=== PATIENT | female | born 1960 | race Caucasian/White ===

== ENCOUNTER 2024-05-22 10:36 | Inpatient (IN) | payer MEDICARE, MEDICAID, SELFPAY ==
[2024-05-22] VITALS (52 sets, daily range): BP systolic 99–119; BP diastolic 44–100; PULSE 101–128; RESP 15–27; TEMP 36.3–37; O2SAT 78–100; BMI 34.3
--- NOTE | ~2024-05-22 | CT_ITS ---
EXAMINATION: CTA chest abdomen pelvis DATE: 05/22/2024 13:08 INDICATION: Pain. Shortness of breath. Lower abdominal pain. TECHNIQUE: Computed tomographic angiography (CTA) of the chest, abdomen, and pelvis was performed wit hout and with 100 mL Omnipaque-350 intravenous contrast. Volume-rendered 3D-reconstructions of the ao rta and large arteries were constructed by the technologist on a separate workstation. Automated expo sure control and iterative reconstruction technique were employed. The dose-length product was 1061.9 5 mGy-cm. COMPARISON: None FINDINGS: Chest: 1.5 cm nodule with spiculated and lobular margins in the lingula. Linear bands of discoid atelectasis /scarring in the basilar left lower lobe and adjacent lingular. No pneumonia, pulmonary edema or pleu ral effusion. Heart size is normal. No pericardial effusion. Thoracic aorta is normal in caliber with no dissection. No pathologically enlarged thoracic lymphadenopathy. Small sliding-type hiatal hernia . Severe lower cervical spondylosis. Mild upper to moderate lower thoracic spondylosis. Abdomen and pelvis: There is mild dilation the common bile duct to 1.2 cm which is likely related to prior cholecystectom y. Liver is normal with no intrahepatic biliary ductal dilation. Splenic calcification consistent wit h old granulomatous disease. Pancreas, left kidney and bilateral adrenal glands are normal. 1.[address] at the upper pole the right kidney. There is inflammatory stranding surrounding the splenic flexur e the colon where there is wall thickening with nodular soft tissue extension to the surrounding abigail colonic fat. There also several small adjacent mesenteric lymph nodes and mildly prominent lymph node s about the splenic hilum. Findings are concerning for primary colon cancer. Differential would inclu de diverticulitis or focal colitis. There is moderate diverticulosis along the descending and sigmoid colon. Small bowel and appendix are normal. Bladder is normal. The uterus is not identified and has likely been surgically resected. Minimal atherosclerotic plaque along the normal caliber abdominal ao rta. No free intraperitoneal gas or fluid. No pathologically enlarged abdominal or pelvic lymphadenop athy. Severe lumbar spondylosis. IMPRESSION: 1. 1.5 cm spiculated nodule at the lingula concerning for primary bronchogenic carcinoma. If there is no prior outside imaging to confirm long-term stability would recommend further evaluation with CT-g uided biopsy. 2. Stranding and wall thickening at the splenic flexure with nodular extension of soft tissue into th e pericolonic fat and mild mesenteric lymphadenopathy which is highly concerning for primary colon ca ncer. Differential would include diverticulitis or focal colitis. Recommend colonoscopy for further e valuation. Reviewed, dictated and finalized at location B. S EXECUTIVE IMPRESSION: 1. 1.5 cm spiculated nodule at the lingula concerning for primary bronchogenic carcinoma. If there is no prior outside imaging to confirm long-term stability would recommend further evaluation with CT-guided biopsy. 2. Stranding and wall thickening at the splenic flexure with nodular extension of soft tissue into the pericolonic fat and mild mesenteric lymphadenopathy whi ch is highly concerning for primary colon cancer. Differential would include di verticulitis or focal colitis. Recommend colonoscopy for further evaluation.
--- NOTE | ~2024-05-22 | XR_ITS ---
EXAMINATION: XR chest 1V portable DATE: 05/26/2024 18:47 INDICATION: Left lung nodule status post percutaneous biopsy. TECHNIQUE: A single frontal view of the chest was obtained. COMPARISON: Chest single view at 3:35 PM FINDINGS: There is a nodule in left midlung zone. There is mild atelectasis at the lung bases. No ple ural effusion or pneumothorax. The heart size is normal. IMPRESSION: 1. Nodule in left midlung zone suspicious for primary bronchogenic carcinoma and postbiopsy hemorrhag e. 2. Mild atelectasis at left lung base. Reviewed, dictated and finalized at location A. OL SUPERVISOR IMPRESSION: 1. Nodule in left midlung zone suspicious for primary bronchogenic carcinoma an d postbiopsy hemorrhage. 2. Mild atelectasis at left lung base.
--- NOTE | ~2024-05-22 | CT_ITS ---
EXAMINATION: CT biopsy lung w/imaging DATE: 05/26/2024 15:35 INDICATION: Suspicious left upper lobe lung mass TECHNIQUE: The procedure including the risks, benefits, and alternatives was discussed with the patie nt and informed consent was obtained. The patient was brought to the CT scanner and placed in the supine position on the CT table. A timeout was then performed as per protocol. Limited scan of the chest demonstrated significant interstitial thickening and centrilobular emphysem a. . The previously identified 13 mm nodule was redemonstrated anterior lateral margin of the left upper l obe. Marking of the overlying skin was made utilizing the shortest distance for adequate sampling. The left anterior chest wall was then prepped and draped in the standard sterile fashion. 1% lidocaine without epinephrine was utilized to scan and soft tissue analgesia. A 17-gauge introducer was then advanced through the anterior chest wall and directly into the abnorma lity within the left chest. Utilizing an 18-gauge biopsy device multiple specimens were obtained and placed immediately into form olayinka for pathologic evaluation. Post sampling imaging was then performed once all devices were removed which demonstrated trace peril esional hemorrhage without left-sided pneumothorax. Steri-Strips and a sterile dressing were applied The patient was then transported to the recovery area in stable condition. FINDINGS: Dedicated CT images during the biopsy demonstrate the introducer to be through and through the 13 mm lesion. As the biopsy device was advanced, the introducer was withdrawn in order to obtain adequate tissue sa mpling. IMPRESSION: 1. Technically successful CT-guided core biopsy of a 13 mm suspicious lung lesion within the left upp er lobe. No immediate complications were encountered. Pathology is pending. Reviewed, dictated and finalized at location A. MACEUTICAL SALES IMPRESSION: 1. Technically successful CT-guided core biopsy of a 13 mm suspicious lung lesi on within the left upper lobe. No immediate complications were encountered. Pathology is pending.
--- NOTE | ~2024-05-22 | XR_ITS ---
EXAMINATION: XR chest 1V DATE: 05/26/2024 15:38 INDICATION: Left lung nodule status post percutaneous biopsy. TECHNIQUE: A single frontal view of the chest was obtained. COMPARISON: Chest CT 05/12/2024 FINDINGS: There is a mass in left midlung zone. There is mild atelectasis at left lung base. No pleur al effusion or pneumothorax. The heart size is normal. Calcified mediastinal lymph nodes are consiste nt with old granulomatous disease. IMPRESSION: 1. Mass in left midlung zone, consistent with nodule suspicious for malignancy and postbiopsy hemorrh age. Reviewed, dictated and finalized at location A. ISSARY STEWARD IMPRESSION: 1. Mass in left midlung zone, consistent with nodule suspicious for malignancy and postbiopsy hemorrhage.
--- NOTE | 2024-05-22 11:28 | ECG_ITS ---
Test Date: 2024-05-22 11:47:47 Measurements Intervals [place] Rate: 116 P: 31 NV: 145 QRS: 4 QRSD: 85 T: 14 QT: 339 QTc: 473 Interpretive Statements SINUS TACHYCARDIA ABNORMAL RHYTHM ECG No previous ECG available for comparison Electronically Signed On 05-22-2024 13:40:19 [employer]OTTON INSPECTOR by Benjamin Heredia M.D.
--- NOTE | 2024-05-22 11:30 | ED.ABDPAIN ---
HPI - Abdominal Pain General Chief Complaint: Abdominal Pain <Shana Reinoso [employer]ILY [employer] PARALEGAL - Last Filed: 05/22/24 14:54> Stated Complaint: left upper abd pain 12/03, <Shana Reinoso [employer]GAL - Last Filed: 05/22/24 14:54> Time Seen by Provider: 05/22/24 11:20 <Shana Reinoso [employer]GAL - Last Filed: 05/22/24 14:54> Focused HPI: Patient is a 63-year-old female who presents to the ER with complaints of upper abdominal pain for the past 2 weeks. She also endorses chest pain. Patient reports she has a history of pancreatitis and has had stents placed. She has also had cholecystectomy and hysterectomy. Patient reports she has constant right upper quadrant pain, and intermittent midsternal chest pain. She also endorses feeling ?depressed for the past 3 years. Patient has been passively suicidal ideation but has not had an active plan in 2 years. She is tearful upon time of exam. Patient denies any recent alcohol or illicit drug use. She endorses a history of COPD and pancreatitis. GENERAL: Well-appearing, obese, and in mild distress (tearful in triage). HEAD: Normocephalic, atraumatic. CHEST: Clear to auscultation. ?No respiratory distress. HEART: Tachycardia, regular rhythm NEURO: ?Alert and oriented x3. ABDOMEN: + guarding, tenderness with palpation RUQ Patient screened in triage and initial orders placed.? ?Additional care and disposition to be based upon?diagnostic testing and treatment. <Shana Reinoso, [employer]ILY [employer]GAL - Last Filed: 05/22/24 14:54> Focused HPI: Patient is a 63-year-old female who presents to the ER with complaints of upper abdominal pain for the past 2 weeks. She also endorses chest pain. Patient reports she has a history of pancreatitis and has had stents placed. She has also had cholecystectomy and hysterectomy. Patient reports she has constant upper quadrant pain, and intermittent midsternal chest pain. She also endorses feeling ?depressed for the past 3 years. Patient has been passively suicidal ideation but has not had an active plan in 2 years. She is tearful upon time of exam. Patient denies any recent alcohol or illicit drug use. She endorses a history of COPD and pancreatitis. GENERAL: Well-appearing, obese, and in mild distress (tearful in triage). HEAD: Normocephalic, atraumatic. CHEST: Clear to auscultation. ?No respiratory distress. HEART: Tachycardia, regular rhythm NEURO: ?Alert and oriented x3. ABDOMEN: + guarding, tenderness with palpation RUQ Patient screened in triage and initial orders placed.? ?Additional care and disposition to be based upon?diagnostic testing and treatment. <Chester Pelaez MD - Last Filed: 05/22/24 18:51> Related Data Allergies/Adverse Reactions: Allergies Allergy/AdvReac Type Severity Reaction Status Date / Time morphine AdvReac the Verified 05/22/24 14:11 shakes <Shana eRinoso APRN - Last Filed: 05/22/24 14:54> Exam Narrative: APPEARANCE: No apparent distress. Head: atraumatic. EYES: EOMI, NOSE: Atraumatic NECK: Trachea midline RESPIRATORY: No increased rate of breathing CTAB CARDIOVASCULAR: RRR, no peripheral edema ABDOMINAL: Epigastric pain no guarding rebound MUSCULOSKELETAl: No obvious deformities NEURO: Alert. Moving 4/4 extremities SKIN:: Warm, dry. Normal color PSYCHIATRIC: Normal affect <Chester Pelaez MD - Last Filed: 05/22/24 18:51> Course Vital Signs Vital signs: Vital Signs Temperature 98.6 F 05/22/24 11:05 Pulse Rate 115 H 05/22/24 11:05 Respiratory Rate 16 05/22/24 11:05 Blood Pressure 114/64 05/22/24 11:05 Pulse Oximetry 97 05/22/24 11:05 Oxygen Delivery Room Air 05/22/24 11:05 Temperature 98.6 F 05/22/24 11:05 Pulse Rate 126 H 05/22/24 17:01 Respiratory Rate 18 05/22/24 17:01 Blood Pressure 117/62 05/22/24 17:01 Pulse Oximetry 95 05/22/24 17:01 Oxygen Delivery Room Air 05/22/24 11:05 <Shana Reinoso, [employer]ILY [employer]GAL - Last Filed: 05/22/24 14:54> Vital Signs Temperature 98.6 F 05/22/24 11:05 Pulse Rate 115 H 05/22/24 11:05 Respiratory Rate 16 05/22/24 11:05 Blood Pressure 114/64 05/22/24 11:05 Pulse Oximetry 97 05/22/24 11:05 Oxygen Delivery Room Air 05/22/24 11:05 Temperature 98.6 F 05/22/24 11:05 Pulse Rate 126 H 05/22/24 17:01 Respiratory Rate 18 05/22/24 17:01 Blood Pressure 117/62 05/22/24 17:01 Pulse Oximetry 95 05/22/24 17:01 Oxygen Delivery Room Air 05/22/24 11:05 <Chester Pelaez MD - Last Filed: 05/22/24 18:51> MDM - Abdominal Pain MDM Narrative Medical decision making narrative: -Course: This is a 63-year-old female presenting with abdominal pain. On arrival patient is tachycardic. CT chest abdomen pelvis showed suspected lung cancer as well as inflammation at the splenic flexure that could be colon cancer versus colitis versus diverticulitis. Patient's white count is elevated, she is persistently tachycardic despite fluid resuscitation. Patient meets sepsis criteria. Started on broad spectrum abx and given 30/cc blus. She will be started on antibiotics for colitis and admitted the hospital for further management. Patient is a poor historian. She says she was discharged from [facility] on April 13 and is unclear exactly why she was there outside of pancreatitis. Records have been requested from [facility]. -DDX includes but is not limited to: Lung cancer pneumonia sepsis UTI dehydration colitis diverticulitis, pancreatitis, gallbladder disease -Independent interpretation of studies: White count 13 hemoglobin 9.5. Metabolic panel unremarkable Troponin undetectable, BNP normal Urine not indicative infection CTA reviewed. Independent EKG interpretation: Rhythm [sinus], Rate [116], [place] -[normal], [place] -[normal], QRS [narrow], QTC [normal], T waves -[negative for concerning inversions], ST Segments - [Negative for concerning elevations] Final interpretations: Sinus tachycardia -Discussion of Management/Consultants: [place] -Interventions: 30 cc/kilogram bolus, pip-tazo, vancomycin, Dilaudid -Shared decision making / Disposition:admitted. <Chester Pelaez MD - Last Filed: 05/22/24 18:51> Lab Data Result diagrams: 05/22/24 11:59 05/22/24 11:59 <Shana Reinoso, FAMILY [employer]GAL - Last Filed: 05/22/24 14:54> Labs: Lab Results 05/22/24 05/22/24 05/22/24 Range/Units 11:59 12:12 14:08 WBC 13.0 H (4.5-10.0) K/mm3 RBC 4.15 L (4.2-5.4) M/mm3 Hgb 9.5 L (12.0-15.0) g/dL Hct 32.1 L (37.0-47.0) % MCV 77.3 L (80-100) fl MCH 22.9 L (26-34) pg MCHC 29.6 L (32-36) g/dl RDW 16.0 H (11.5-14.5) % Plt Count 432 H (150-375) k/mm3 MPV 10.3 (7.4-10.4) fl Immature Gran % (Auto) 0.5 (0-0.5) % Neut % (Auto) 62.5 (45.5-73.1) % Lymph % (Auto) 28.7 (18.3-44.2) % [place] % (Auto) 6.9 (2.6-8.5) % Eos % (Auto) 1.2 (0-4.4) % Baso % (Auto) 0.2 (0.2-1.2) % Lymph # (Auto) 3.72 H (0.9-3.2) K/mm3 [place] # (Auto) 0.9 H (0.1-0.6) K/mm3 Eos # (Auto) 0.2 (0-0.3) K/mm3 Baso # (Auto) 0.0 (0.0-0.1) K/mm3 Abs Immat Gran (auto) 0.06 H (0.00-0.031) K/mm3 Absolute Neuts (auto) 8.1 H (1.3-6.7) K/mm3 Absolute Nucleated RBC 0.000 (0.0-0.012) K/mm3 Nucleated RBC % 0.0 (0.0-0.2) % Platelet Estimate Increased (Adequate) Polychromasia 1+ Hypochromasia 1+ Anisocytosis 1+ Schistocytes None seen PT 17.5 H (11.1-14.7) Seconds INR 1.4 APTT 45.0 H (22.3-36.8) Seconds Sodium 135 L (137-145) mmol/L Potassium 3.9 (3.4-5.0) mmol/L Chloride 101 (98-107) mmol/L Carbon Dioxide 22 (22-30) mmol/L Anion Gap 12 (4-12) mmol/L BUN 12 (7-17) mg/dL Creatinine 0.66 L (0.7-1.0) mg/dL Estim Creat Clear Calc 66 ml/min Estimated GFR > 60 (59 - ) Glucose 104 (65-110) mg/dL POC Capillary Glucose 92 (65-105) mg/dl Calcium 9.5 (8.4-10.2) mg/dL Total Bilirubin 0.4 (0.2-1.3) mg/dL AST 21 (14-36) U/L ALT 14 (6-35) U/L Alkaline Phosphatase 152 H (38-126) U/L Troponin I < 0.012 (0.000-0.034) ng/mL NT-Pro-B Natriuret Pep 79 (19.9-100) pg/mL Total Protein 8.0 (6.3-8.2) g/dL Albumin 4.2 (3.5-5.1) g/dL Lipase 37 (23-300) U/L TSH (Reflex) 1.110 (0.465-4.68) uIU/mL Urine Color Yellow (Yellow) Urine Appearance Clear (Clear) Urine pH 6.5 (5.0-9.0) Ur Specific [place] 1.011 (1.001-1.035) Urine Protein Negative (Negative) mg/dL Urine Glucose (UA) Negative (Negative) mg/dL Urine Ketones Negative (Negative) mg/dL Ur Blood (Man) Negative (Negative) Urine Nitrate Negative (Negative) Urine Bilirubin Negative (Negative) Urine Urobilinogen 0.2 (<2.0) mg/dL Leukocyte Esterase Rfl Negative (Negative) [place]/UL <Shana Reinoso, FAMILY [employer] PARALEGAL - Last Filed: 05/22/24 14:54> Lab Results 05/22/24 05/22/24 05/22/24 Range/Units 11:59 12:12 14:08 WBC 13.0 H (4.5-10.0) K/mm3 RBC 4.15 L (4.2-5.4) M/mm3 Hgb 9.5 L (12.0-15.0) g/dL Hct 32.1 L (37.0-47.0) % MCV 77.3 L (80-100) fl MCH 22.9 L (26-34) pg MCHC 29.6 L (32-36) g/dl RDW 16.0 H (11.5-14.5) % Plt Count 432 H (150-375) k/mm3 MPV 10.3 (7.4-10.4) fl Immature Gran % (Auto) 0.5 (0-0.5) % Neut % (Auto) 62.5 (45.5-73.1) % Lymph % (Auto) 28.7 (18.3-44.2) % [place] % (Auto) 6.9 (2.6-8.5) % Eos % (Auto) 1.2 (0-4.4) % Baso % (Auto) 0.2 (0.2-1.2) % Lymph # (Auto) 3.72 H (0.9-3.2) K/mm3 [place] # (Auto) 0.9 H (0.1-0.6) K/mm3 Eos # (Auto) 0.2 (0-0.3) K/mm3 Baso # (Auto) 0.0 (0.0-0.1) K/mm3 Abs Immat Gran (auto) 0.06 H (0.00-0.031) K/mm3 Absolute Neuts (auto) 8.1 H (1.3-6.7) K/mm3 Absolute Nucleated RBC 0.000 (0.0-0.012) K/mm3 Nucleated RBC % 0.0 (0.0-0.2) % Platelet Estimate Increased (Adequate) Polychromasia 1+ Hypochromasia 1+ Anisocytosis 1+ Schistocytes None seen PT 17.5 H (11.1-14.7) Seconds INR 1.4 APTT 45.0 H (22.3-36.8) Seconds Sodium 135 L (137-145) mmol/L Potassium 3.9 (3.4-5.0) mmol/L Chloride 101 (98-107) mmol/L Carbon Dioxide 22 (22-30) mmol/L Anion Gap 12 (4-12) mmol/L BUN 12 (7-17) mg/dL Creatinine 0.66 L (0.7-1.0) mg/dL Estim Creat Clear Calc 66 ml/min Estimated GFR > 60 (59 - ) Glucose 104 (65-110) mg/dL POC Capillary Glucose 92 (65-105) mg/dl Calcium 9.5 (8.4-10.2) mg/dL Total Bilirubin 0.4 (0.2-1.3) mg/dL AST 21 (14-36) U/L ALT 14 (6-35) U/L Alkaline Phosphatase 152 H (38-126) U/L Troponin I < 0.012 (0.000-0.034) ng/mL NT-Pro-B Natriuret Pep 79 (19.9-100) pg/mL Total Protein 8.0 (6.3-8.2) g/dL Albumin 4.2 (3.5-5.1) g/dL Lipase 37 (23-300) U/L TSH (Reflex) 1.110 (0.465-4.68) uIU/mL Urine Color Yellow (Yellow) Urine Appearance Clear (Clear) Urine pH 6.5 (5.0-9.0) Ur Specific [place] 1.011 (1.001-1.035) Urine Protein Negative (Negative) mg/dL Urine Glucose (UA) Negative (Negative) mg/dL Urine Ketones Negative (Negative) mg/dL Ur Blood (Man) Negative (Negative) Urine Nitrate Negative (Negative) Urine Bilirubin Negative (Negative) Urine Urobilinogen 0.2 (<2.0) mg/dL Leukocyte Esterase Rfl Negative (Negative) [place]/UL <Chester Pelaez MD - Last Filed: 05/22/24 18:51> Imaging Data Radiologist's impression: ITS Impressions Chest/Abdomen/Pelvis CTA 05/22/24 13:13 IMPRESSION: 1. 1.5 cm spiculated nodule at the lingula concerning for primary bronchogenic carcinoma. If there is no prior outside imaging to confirm long-term stability would recommend further evaluation with CT-guided biopsy. 2. Stranding and wall thickening at the splenic flexure with nodular extension of soft tissue into the pericolonic fat and mild mesenteric lymphadenopathy which is highly concerning for primary colon cancer. Differential would include diverticulitis or focal colitis. Recommend colonoscopy for further evaluation. <Shana Reinoso APRN - Last Filed: 05/22/24 14:54> ITS Impressions Chest/Abdomen/Pelvis CTA 05/22/24 13:13 IMPRESSION: 1. 1.5 cm spiculated nodule at the lingula concerning for primary bronchogenic carcinoma. If there is no prior outside imaging to confirm long-term stability would recommend further evaluation with CT-guided biopsy. 2. Stranding and wall thickening at the splenic flexure with nodular extension of soft tissue into the pericolonic fat and mild mesenteric lymphadenopathy which is highly concerning for primary colon cancer. Differential would include diverticulitis or focal colitis. Recommend colonoscopy for further evaluation. <Chester Pelaez MD - Last Filed: 05/22/24 18:51> Discharge Plan Discharge Instructions: Antibiotic Form <Shana Reinoso APRN - Last Filed: 05/22/24 14:54> Patient Language: [place] Zealander <Shana Reinoso APRN - Last Filed: 05/22/24 14:54>
[2024-05-22 12:09] LABS: Basophils Percent Auto 0.2 % (0.2-1.2); Eosinophils Absolute Auto 0.2 K/mm3 (0-0.3); Eosinophils Percent Auto 1.2 % (0-4.4); Hematocrit 32.1 % (37.0-47.0); Hemoglobin 9.5 g/dL (12.0-15.0); Immature Granulocyte Absolute 0.06 K/mm3 (0.00-0.031); Immature Granulocyte Percent A 0.5 % (0-0.5); Lymphocytes Absolute Auto 3.72 K/mm3 (0.9-3.2); Lymphocytes Percent Auto 28.7 % (18.3-44.2); Mean Corpuscular HGB Conc 29.6 g/dl (32-36); Mean Corpuscular Hemoglobin 22.9 pg (26-34); Mean Corpuscular Volume 77.3 fl (80-100); Mean Platelet Volume 10.3 fl (7.4-10.4); Monocytes Absolute Auto 0.9 K/mm3 (0.1-0.6); Monocytes Percent Auto 6.9 % (2.6-8.5); Neutrophils Absolute Auto 8.1 K/mm3 (1.3-6.7); Neutrophils Percent Auto 62.5 % (45.5-73.1); Platelet Count Result 432 k/mm3 (150-375); Red Blood Count 4.15 M/mm3 (4.2-5.4)
[2024-05-22 12:23] LABS: INR 1.4; Prothrombin Time 17.5 Seconds (11.1-14.7)
[2024-05-22 12:26] LABS: Add Urine Microscopic? NO; Appearance Urine Clear (Clear); Bilirubin Urine Negative (Negative); Blood Urine Negative (Negative); Color Urine Yellow (Yellow); Glucose Urine UA Negative (Negative); Ketones Urine Negative (Negative); Leukocyte Esterase Ur Negative LEU/UL (Negative); Nitrate Urine Negative (Negative); Protein Urine Negative (Negative); Specific Grav Ur 1.011 (1.001-1.035); Urobilinogen Urine 0.2 mg/dL (<2.0); pH Urine 6.5 (5.0-9.0)
[2024-05-22 12:33] LABS: Anisocytosis 1+; Hypochromasia 1+; Platelet Estimate Increased (Adequate); Polychromasia 1+; Schistocytes None Seen
[2024-05-22 12:48] LABS: Alanine Aminotransferase 14 U/L (6-35); Albumin Level 4.2 g/dL (3.5-5.1); Alkaline Phosphatase 152 U/L (38-126); Anion Gap 12 mmol/L (4-12); Aspartate Amino Transferase 21 U/L (14-36); Bilirubin,Total 0.4 mg/dL (0.2-1.3); Blood Urea Nitrogen 12 mg/dL (7-17); Calcium 9.5 mg/dL (8.4-10.2); Carbon Dioxide 22 mmol/L (22-30); Chloride 101 mmol/L (98-107); Estimated CRCL calculation 66 ml/min; Estimated Glomerular Filt Rate > 60; Glucose 104 mg/dL (65-110); Lipase 37 U/L (23-300); Potassium 3.9 mmol/L (3.4-5.0); Sodium 135 mmol/L (137-145); Troponin I < 0.012 ng/mL (0.000-0.034)
[2024-05-22 12:58] LABS: NT Pro B Type Natriuretic Pept 79 pg/mL (19.9-100)
[2024-05-22 14:12] LABS: Glucose Point of Care 92 mg/dl (65-105)
[2024-05-22] MEDS: SODIUM CHLORIDE 0.9% IV 1,000 ML 999 ML IV CONT (16:59)
[2024-05-22] MEDS: ONDANSETRON INJ 4 MG/2 ML VIAL IV PUSH ×2 (17:00→23:51)
[2024-05-22] MEDS: HYDROmorphone HCL INJ (*CRX) 1 MG/ML SYR IV PUSH ×2 (17:01→22:26)
[2024-05-22 18:00] LABS: Lactic Acid Reflex 1.8 mmol/L (0.7-2.0)
[2024-05-22] MEDS: PIPERACILLN/TAZ 3.375GM/NS50ML 3.375 GM/50 ML BAG IVPB ×2 (18:12→23:56)
[2024-05-22] MEDS: SODIUM CHLORIDE 0.9% 999 ML IV CONT (18:12)
[2024-05-22 18:17] LABS: Lipase 37 U/L (23-300)
[2024-05-22] MEDS: VANCOMYCIN 1,750 MG/NS 500 ML 1,750 MG/500 ML BAG 250 MG IVPB (18:44)
--- NOTE | 2024-05-22 19:22 | ED_ITS ---
HPI - General Adult General Chief complaint: Abdominal Pain Stated complaint: left upper abd pain 12/03, Time Seen by Provider: 05/22/24 11:20 History of Present Illness HPI narrative: This is a 63-year-old female presenting ED with chief epigastric pain. Pain is been going on for several weeks please come worse over the last several days. Patient was admitted at [facility] and had a prolonged stay due to complications from pancreatitis. Patient is poor historian and does not know many of the specifics of her stay. Records have been requested. This time the patient is denying fevers, chills chest pain difficulty breathing or urinary symptoms. No nausea vomiting or diarrhea. Patient has an oncology appointment on but she is not sure for what. Related Data Allergies Allergy/AdvReac Type Severity Reaction Status Date / Time morphine AdvReac the Verified 05/22/24 14:11 shakes Exam 2 Narrative: APPEARANCE: No apparent distress. Head: atraumatic. EYES: EOMI, NOSE: Atraumatic NECK: Trachea midline RESPIRATORY: No increased rate of breathing clear to auscultation CARDIOVASCULAR: Tachycardic ABDOMINAL: Tenderness palpation over the epigastric area guarding or rebound MUSCULOSKELETAl: No obvious deformities NEURO: Alert. Moving 4/4 extremities SKIN:: Warm, dry. Normal color PSYCHIATRIC: Normal affect Course Vital Signs Vital signs: Vital Signs Temperature 98.6 F 05/22/24 11:05 Pulse Rate 115 H 05/22/24 11:05 Respiratory Rate 16 05/22/24 11:05 Blood Pressure 114/64 05/22/24 11:05 Pulse Oximetry 97 05/22/24 11:05 Oxygen Delivery Room Air 05/22/24 11:05 Temperature 98.6 F 05/22/24 11:05 Pulse Rate 114 H 05/22/24 19:16 Respiratory Rate 17 05/22/24 19:16 Blood Pressure 104/66 05/22/24 19:16 Pulse Oximetry 100 05/22/24 19:16 Oxygen Delivery Nasal Cannula 05/22/24 18:32 Oxygen Flow Rate 2 05/22/24 18:32 Medical Decision Making [facility] Narrative Medical decision making narrative: -Course: 63-year-old female presenting with epigastric pain. CT chest abdomen pelvis showed possible lung cancer in the lingula. It also shows inflammation at the splenic flexure with a differential of focal colitis versus neoplasm versus diverticulitis. Clinically the patient is persistently tachycardic despite pain meds and fluid resuscitation. She has a white count of 13 and meet sepsis criteria. Started on broad-spectrum antibiotics and given a 30 cc/kilogram bolus. She will be admitted to the hospital for further management -DDX includes but is not limited to: Sepsis UTI dehydration colitis diverticulitis neoplasm -Independent interpretation of studies: Labs imaging reviewed -Discussion of Management/Consultants: Dr. Green -Shared decision making / Disposition:admitted. Vital Signs Vital Signs: Vital Signs Temperature 98.6 F 05/22/24 11:05 Pulse Rate 115 H 05/22/24 11:05 Respiratory Rate 16 05/22/24 11:05 Blood Pressure 114/64 05/22/24 11:05 Pulse Oximetry 97 05/22/24 11:05 Oxygen Delivery Room Air 05/22/24 11:05 Temperature 98.6 F 05/22/24 11:05 Pulse Rate 114 H 05/22/24 19:16 Respiratory Rate 17 05/22/24 19:16 Blood Pressure 104/66 05/22/24 19:16 Pulse Oximetry 100 05/22/24 19:16 Oxygen Delivery Nasal Cannula 05/22/24 18:32 Oxygen Flow Rate 2 05/22/24 18:32 Lab Data 05/22/24 11:59 05/22/24 11:59 Labs: Lab Results 05/22/24 05/22/24 05/22/24 Range/Units 11:59 12:12 14:08 WBC 13.0 H (4.5-10.0) K/mm3 RBC 4.15 L (4.2-5.4) M/mm3 Hgb 9.5 L (12.0-15.0) g/dL Hct 32.1 L (37.0-47.0) % MCV 77.3 L (80-100) fl MCH 22.9 L (26-34) pg MCHC 29.6 L (32-36) g/dl RDW 16.0 H (11.5-14.5) % Plt Count 432 H (150-375) k/mm3 MPV 10.3 (7.4-10.4) fl Immature Gran % (Auto) 0.5 (0-0.5) % Neut % (Auto) 62.5 (45.5-73.1) % Lymph % (Auto) 28.7 (18.3-44.2) % [place] % (Auto) 6.9 (2.6-8.5) % Eos % (Auto) 1.2 (0-4.4) % Baso % (Auto) 0.2 (0.2-1.2) % Lymph # (Auto) 3.72 H (0.9-3.2) K/mm3 [place] # (Auto) 0.9 H (0.1-0.6) K/mm3 Eos # (Auto) 0.2 (0-0.3) K/mm3 Baso # (Auto) 0.0 (0.0-0.1) K/mm3 Abs Immat Gran (auto) 0.06 H (0.00-0.031) K/mm3 Absolute Neuts (auto) 8.1 H (1.3-6.7) K/mm3 Absolute Nucleated RBC 0.000 (0.0-0.012) K/mm3 Nucleated RBC % 0.0 (0.0-0.2) % Platelet Estimate Increased (Adequate) Polychromasia 1+ Hypochromasia 1+ Anisocytosis 1+ Schistocytes None seen PT 17.5 H (11.1-14.7) Seconds INR 1.4 APTT 45.0 H (22.3-36.8) Seconds Sodium 135 L (137-145) mmol/L Potassium 3.9 (3.4-5.0) mmol/L Chloride 101 (98-107) mmol/L Carbon Dioxide 22 (22-30) mmol/L Anion Gap 12 (4-12) mmol/L BUN 12 (7-17) mg/dL Creatinine 0.66 L (0.7-1.0) mg/dL Estim Creat Clear Calc 66 ml/min Estimated GFR > 60 (59 - ) Glucose 104 (65-110) mg/dL POC Capillary Glucose 92 (65-105) mg/dl Lactic Acid (0.7-2.0) mmol/L Calcium 9.5 (8.4-10.2) mg/dL Total Bilirubin 0.4 (0.2-1.3) mg/dL AST 21 (14-36) U/L ALT 14 (6-35) U/L Alkaline Phosphatase 152 H (38-126) U/L Troponin I < 0.012 (0.000-0.034) ng/mL NT-Pro-B Natriuret Pep 79 (19.9-100) pg/mL Total Protein 8.0 (6.3-8.2) g/dL Albumin 4.2 (3.5-5.1) g/dL Lipase 37 (23-300) U/L TSH (Reflex) 1.110 (0.465-4.68) uIU/mL Urine Color Yellow (Yellow) Urine Appearance Clear (Clear) Urine pH 6.5 (5.0-9.0) Ur Specific [place] 1.011 (1.001-1.035) Urine Protein Negative (Negative) mg/dL Urine Glucose (UA) Negative (Negative) mg/dL Urine Ketones Negative (Negative) mg/dL Ur Blood (Man) Negative (Negative) Urine Nitrate Negative (Negative) Urine Bilirubin Negative (Negative) Urine Urobilinogen 0.2 (<2.0) mg/dL Leukocyte Esterase Rfl Negative (Negative) EUGENIA/UL 05/22/24 05/22/24 Range/Units 17:45 18:02 WBC (4.5-10.0) K/mm3 RBC (4.2-5.4) M/mm3 Hgb (12.0-15.0) g/dL Hct (37.0-47.0) % MCV (80-100) fl MCH (26-34) pg MCHC (32-36) g/dl RDW (11.5-14.5) % Plt Count (150-375) k/mm3 MPV (7.4-10.4) fl Immature Gran % (Auto) (0-0.5) % Neut % (Auto) (45.5-73.1) % Lymph % (Auto) (18.3-44.2) % [place] % (Auto) (2.6-8.5) % Eos % (Auto) (0-4.4) % Baso % (Auto) (0.2-1.2) % Lymph # (Auto) (0.9-3.2) K/mm3 [place] # (Auto) (0.1-0.6) K/mm3 Eos # (Auto) (0-0.3) K/mm3 Baso # (Auto) (0.0-0.1) K/mm3 Abs Immat Gran (auto) (0.00-0.031) K/mm3 Absolute Neuts (auto) (1.3-6.7) K/mm3 Absolute Nucleated RBC (0.0-0.012) K/mm3 Nucleated RBC % (0.0-0.2) % Platelet Estimate (Adequate) Polychromasia Hypochromasia Anisocytosis Schistocytes PT (11.1-14.7) Seconds INR APTT (22.3-36.8) Seconds Sodium (137-145) mmol/L Potassium (3.4-5.0) mmol/L Chloride (98-107) mmol/L Carbon Dioxide (22-30) mmol/L Anion Gap (4-12) mmol/L BUN (7-17) mg/dL Creatinine (0.7-1.0) mg/dL Estim Creat Clear Calc ml/min Estimated GFR (59 - ) Glucose (65-110) mg/dL POC Capillary Glucose (65-105) mg/dl Lactic Acid 1.8 (0.7-2.0) mmol/L Calcium (8.4-10.2) mg/dL Total Bilirubin (0.2-1.3) mg/dL AST (14-36) U/L ALT (6-35) U/L Alkaline Phosphatase (38-126) U/L Troponin I (0.000-0.034) ng/mL NT-Pro-B Natriuret Pep (19.9-100) pg/mL Total Protein (6.3-8.2) g/dL Albumin (3.5-5.1) g/dL Lipase 37 (23-300) U/L TSH (Reflex) (0.465-4.68) uIU/mL Urine Color (Yellow) Urine Appearance (Clear) Urine pH (5.0-9.0) Ur Specific [place] (1.001-1.035) Urine Protein (Negative) mg/dL Urine Glucose (UA) (Negative) mg/dL Urine Ketones (Negative) mg/dL Ur Blood (Man) (Negative) Urine Nitrate (Negative) Urine Bilirubin (Negative) Urine Urobilinogen (<2.0) mg/dL Leukocyte Esterase Rfl (Negative) EUGENIA/UL Critical Care Time Critical Care Time Critical Care Time: Yes Total Critical Care Time: 35 Discharge Plan Discharge Clinical Impression: Sepsis, Colonic mass, Cancer, Colitis Patient Disposition: Still a Patient Condition: Stable Patient Language: Bhutanese
--- NOTE | 2024-05-22 20:45 | P.HP_ITS ---
H&P: HPI History of Present Illness Date/Time: 05/22/24 20:45 Chief Complaint: Abdominal pain Narrative: This is a 63-year-old female with past medical history significant for chronic pain, neuropathy, chronic anticoagulation. Patient presents to the emergency room with abdominal pain for 2 weeks, denies hematemesis, denies melena, denies hematochezia, no coffee-ground emesis, no bright red blood per rectum, no weight loss patient states that she has been eating only cereal. Preliminary workup in emergency room was significant for CT of abdomen and pelvis rule out for acute pulmonary embolism patient was found to have a spiculated mass of the lung as well as likely colonic mass. Patient has been admitted for further evaluation management and treatment. EXAMINATION: CTA chest abdomen pelvis DATE: 05/22/2024 13:08 INDICATION: Pain. Shortness of breath. Lower abdominal pain. TECHNIQUE: Computed tomographic angiography (CTA) of the chest, abdomen, and pelvis was performed without and with 100 mL Omnipaque-350 intravenous contrast. Volume-rendered 3D-reconstructions of the aorta and large arteries were constructed by the technologist on a separate workstation. Automated exposure control and iterative reconstruction technique were employed. The dose-length product was 1061.95 mGy-cm. COMPARISON: None FINDINGS: Chest: 1.5 cm nodule with spiculated and lobular margins in the lingula. Linear bands of discoid atelectasis/scarring in the basilar left lower lobe and adjacent lingular. No pneumonia, pulmonary edema or pleural effusion. Heart size is normal. No pericardial effusion. Thoracic aorta is normal in caliber with no dissection. No pathologically enlarged thoracic lymphadenopathy. Small sliding- type hiatal hernia. Severe lower cervical spondylosis. Mild upper to moderate lower thoracic spondylosis. Abdomen and pelvis: There is mild dilation the common bile duct to 1.2 cm which is likely related to prior cholecystectomy. Liver is normal with no intrahepatic biliary ductal d ilation. Splenic calcification consistent with old granulomatous disease. Pancreas, left kidney and bilateral adrenal glands are normal. 1.3 cm cyst at the upper pole the right kidney. There is inflammatory stranding surrounding the splenic flexure the colon where there is wall thickening with nodular soft tissue extension to the surrounding pericolonic fat. There also several small adjacent mesenteric lymph nodes and mildly prominent lymph nodes about the splenic hilum. Findings are concerning for primary colon cancer. Differential would include diverticulitis or focal colitis. There is moderate diverticulosis along the descending and sigmoid colon. Small bowel and appendix are normal. Bladder is normal. The uterus is not identified and has likely been surgically resected. Minimal atherosclerotic plaque along the normal caliber abdominal aorta. No free intraperitoneal gas or fluid. No pathologically enlarged abdominal or pelvic lymphadenopathy. Severe lumbar spondylosis. IMPRESSION: 1. 1.5 cm spiculated nodule at the lingula concerning for primary bronchogenic carcinoma. If there is no prior outside imaging to confirm long-term stability would recommend further evaluation with CT-guided biopsy. 2. Stranding and wall thickening at the splenic flexure with nodular extension of soft tissue into the pericolonic fat and mild mesenteric lymphadenopathy which is highly concerning for primary colon cancer. Differential would include diverticulitis or focal colitis. Recommend colonoscopy for further evaluation. Review of Systems Review of Systems: Abdominal pain, poor per orally intake, denies weight loss. PMFSH Social History Social History Smoking status: Former smoker Tobacco type: cigarettes Alcohol intake: former Substance use: never Do You Feel Safe in your Home?: Yes Lack of Transportation: No Lack of Food: Never True Current Housing: I Have Housing Concerned About Future Housing: No Difficulty Paying Gas/Electric Bills: No Difficulty Paying for Meds: No Currently Unemployed: No Education: Decline to Answer Difficulty w/ Childcare or Family Care: No Spiritual care concerns: No Meds Home Medications and Allergies Home Medications ?Medication ?Instructions ?Recorded ?Confirmed ?Type amitriptyline 75 mg tablet 75 mg PO HS 05/22/24 05/22/24 History apixaban 5 mg tablet (Eliquis) 5 mg PO BID 05/22/24 05/22/24 History lmwcxkzxau-gjuqyptyrdjwn-vvmvznwe 1 cap PO BID PRN pain 05/22/24 05/22/24 History 50 mg-300 mg-40 mg capsule (Fioricet) diphenhydramine-zinc acetate 2 1 applic topical BID PRN itching 05/22/24 05/22/24 History %-0.1 % topical cream (Wal-Dryl (diphenhydramine-Zn acetate)) gabapentin 600 mg tablet 600 mg PO TID 05/22/24 05/22/24 History hydroxyzine HCl 25 mg tablet 25 mg PO TID PRN itching 05/22/24 05/22/24 History lidocaine 4 % topical patch 2 patch topical DAILY 05/22/24 05/22/24 History (Aspercreme (lidocaine)) ondansetron 4 mg disintegrating 4 mg PO Q6H PRN nausea and vomiting 05/22/24 05/22/24 History tablet oxycodone 5 mg tablet 5 mg PO Q4H PRN pain 05/22/24 05/22/24 History pantoprazole 40 mg tablet,delayed 40 mg PO QAM 05/22/24 05/22/24 History release polyethylene glycol 3350 17 17 g PO DAILY PRN constipation 05/22/24 05/22/24 History gram/dose oral powder (Miralax) prochlorperazine maleate 10 mg 10 mg PO Q8H PRN nausea and 05/22/24 05/22/24 History tablet (Compazine) vomiting Allergies Allergy/AdvReac Type Severity Reaction Status Date / Time morphine AdvReac the Verified 05/22/24 14:11 shakes Vital Signs Vital Signs - 24 hr 05/22/24 11:05 05/22/24 13:55 05/22/24 13:57 Temperature 98.6 F Pulse Rate 115 H 108 H Respiratory Rate 16 26 H Blood Pressure 114/64 112/100 H Pulse Oximetry 97 95 Oxygen Delivery Room Air Oxygen Flow Rate 05/22/24 14:00 05/22/24 14:01 05/22/24 14:05 Temperature Pulse Rate 108 H 108 H 109 H Respiratory Rate 21 H 17 20 Blood Pressure 101/69 101/69 Pulse Oximetry 97 96 99 Oxygen Delivery Oxygen Flow Rate 05/22/24 14:15 05/22/24 14:16 05/22/24 14:30 Temperature Pulse Rate 108 H 109 H 107 H Respiratory Rate 20 17 22 H Blood Pressure 110/59 L Pulse Oximetry 95 94 Oxygen Delivery Oxygen Flow Rate 05/22/24 14:31 05/22/24 14:45 05/22/24 14:46 Temperature Pulse Rate 110 H 112 H 112 H Respiratory Rate 25 H 22 H 27 H Blood Pressure 99/63 L 103/62 Pulse Oximetry Oxygen Delivery Oxygen Flow Rate 05/22/24 15:00 05/22/24 15:01 05/22/24 15:07 Temperature Pulse Rate 110 H 109 H 109 H Respiratory Rate 25 H 25 H 18 Blood Pressure 107/68 107/69 Pulse Oximetry 94 93 99 Oxygen Delivery Oxygen Flow Rate 05/22/24 15:15 05/22/24 15:16 05/22/24 15:30 Temperature Pulse Rate 106 H 106 H 108 H Respiratory Rate 16 15 20 Blood Pressure 103/67 Pulse Oximetry 95 95 78 L Oxygen Delivery Oxygen Flow Rate 05/22/24 15:36 05/22/24 15:45 05/22/24 16:00 Temperature Pulse Rate 113 H 109 H 109 H Respiratory Rate 23 H 20 17 Blood Pressure 119/69 Pulse Oximetry 97 98 97 Oxygen Delivery Oxygen Flow Rate 05/22/24 16:01 05/22/24 16:15 05/22/24 16:30 Temperature Pulse Rate 109 H 119 H 116 H Respiratory Rate 23 H 22 H 24 H Blood Pressure 114/70 Pulse Oximetry 98 99 99 Oxygen Delivery Oxygen Flow Rate 05/22/24 16:58 05/22/24 16:59 05/22/24 17:00 Temperature Pulse Rate 128 H 128 H 126 H Respiratory Rate 24 H 26 H 23 H Blood Pressure 117/62 Pulse Oximetry 97 97 97 Oxygen Delivery Oxygen Flow Rate 05/22/24 17:01 05/22/24 17:15 05/22/24 17:30 Temperature Pulse Rate 126 H 125 H 126 H Respiratory Rate 18 20 20 Blood Pressure 117/62 Pulse Oximetry 95 90 Oxygen Delivery Oxygen Flow Rate 05/22/24 17:45 05/22/24 17:47 05/22/24 18:00 Temperature Pulse Rate 123 H 123 H 121 H Respiratory Rate 21 H 21 H 24 H Blood Pressure 119/62 Pulse Oximetry Oxygen Delivery Oxygen Flow Rate 05/22/24 18:14 05/22/24 18:15 05/22/24 18:30 Temperature Pulse Rate 122 H 123 H 121 H Respiratory Rate 20 20 21 H Blood Pressure 119/62 Pulse Oximetry 94 93 95 Oxygen Delivery Oxygen Flow Rate 05/22/24 18:31 05/22/24 18:32 05/22/24 18:45 Temperature Pulse Rate 122 H 117 H Respiratory Rate 22 H 20 Blood Pressure 107/80 Pulse Oximetry 95 95 96 Oxygen Delivery Nasal Cannula Oxygen Flow Rate 2 05/22/24 19:00 05/22/24 19:15 05/22/24 19:16 Temperature Pulse Rate 115 H 116 H 114 H Respiratory Rate 20 17 17 Blood Pressure 104/66 Pulse Oximetry 97 97 100 Oxygen Delivery Oxygen Flow Rate Exam Narrative: Patient is sitting in the stretcher Const: General: comfortable, no acute distress, well developed, alert, awake and average body habitus Nutritional Appearance: average body habitus Orientation/consciousness: patient oriented x3 Other: Appears well HENMT: Head: normal to inspection, normocephalic and atraumatic Ears: hearing grossly normal bilaterally Face/Nose/Sinus: normal facial exam Face and sinus: normal facial exam Eyes: General: appearance normal, both eyes and all related structures Pu pils: Equal, round and reactive pupils present EOM: EOMs intact bilaterally Neck: Neck: full ROM, no lymphadenopathy and no JVD Thyroid: thyroid normal Lymphatic: no lymphadenopathy noted Resp: Effort & Inspection: normal respiratory effort and able to speak in complete sentences Auscultation: clear to auscultation bilaterally Cardio: Jugular venous distension: no JVD Rate: regular rate Rhythm: regular rhythm Heart sounds: S1 normal heart sound present and S2 normal heart sound present GI: GI Palp: Yes Soft to palpation and Yes No hepatosplenomegaly present : General: Yes deferred Skin: Rashes: no rashes Wounds: no wounds Neuro: General: patient oriented x3 and CN's II-XI intact bilaterally Cranial nerves: Yes CN's II-XII intact bilaterally and Yes Equal, round and reactive pupils present Cognition (Neuro): normal cognition Speech: normal speech Gait exam (Neuro): Normal gait present Motor exam (neuro): 5/5 motor strength present throughout Extrem: General: normal to inspection, full ROM, no joint enlargement and no pedal edema H&P: Results Labs Labs: Short CBC 05/22/24 Range/Units 11:59 WBC 13.0 H (4.5-10.0) K/mm3 Hgb 9.5 L (12.0-15.0) g/dL Hct 32.1 L (37.0-47.0) % Plt Count 432 H (150-375) k/mm3 BMP 05/22/24 11:59 Sodium 135 L Potassium 3.9 Chloride 101 Carbon Dioxide 22 BUN 12 Creatinine 0.66 L Glucose 104 Calcium 9.5 Cardiac Enzymes 05/22/24 Range/Units 11:59 Troponin I < 0.012 (0.000-0.034) ng/mL Liver Function 05/22/24 Range/Units 11:59 Total Bilirubin 0.4 (0.2-1.3) mg/dL AST 21 (14-36) U/L ALT 14 (6-35) U/L Alkaline Phosphatase 152 H (38-126) U/L Albumin 4.2 (3.5-5.1) g/dL Urine 05/22/24 Range/Units 12:12 Urine Color Yellow (Yellow) Urine Appearance Clear (Clear) Urine pH 6.5 (5.0-9.0) Ur Specific [place] 1.011 (1.001-1.035) Urine Protein Negative (Negative) mg/dL Urine Glucose (UA) Negative (Negative) mg/dL Assessment and Plan Assessment and plan (1) Colitis: Code(s): K52.9 - Noninfective gastroenteritis and colitis, unspecified Status: Acute Assessment and Plan: Admit to regular medical floor Patient started on antibiotics Supportive care (2) Colonic mass: Code(s): K63.89 - Other specified diseases of intestine Status: Acute Assessment and Plan: General surgery consult (3) Cancer: Code(s): C80.1 - Malignant (primary) neoplasm, unspecified Status: Acute Assessment and Plan: Request medical records Patient with spiculated mass finding on CT of the chest Likely colonic mass as well on CT of abdomen (4) Sepsis: Code(s): A41.9 - Sepsis, unspecified organism Status: Acute Assessment and Plan: Upon presentation to emergency room Continue to monitor Early goal-directed therapy in progress Hospitalist MIPS Advance Care Plan I have confirmed that the patient's Advanced Care Plan is present, code status is documented, or surrogate decision maker is listed in patient medical record.: Yes Medication Reconciliation I have utilized all available resources to obtain, update and review the patients current medications (includes all prescriptions, OTC, herbals, cannabis, and nutritional supplements).: Yes
--- NOTE | 2024-05-22 21:38 | ADMGEN ---
This patient, Marily Cantu, was admitted to Medical Room 348-01. Patient/family oriented to hospital policies and general routines including ID bracelet, bed and alarms, visiting hours, pain management, procedures, bathroom and other care routines, personal items, smoking policy, room service/diet, and visiting hours. Information on how to activate the Rapid Response Team has been discussed. Patient/Family are encouraged to report perceived risks to care and to ask questions if they do not understand what they are told or what they should do.
[2024-05-22] MEDS: LORazepam INJ (*CRX) 2 MG/ML VIAL 1 MG IV PUSH (23:51)
[2024-05-23] VITALS (10 sets, daily range): BP systolic 98–113; BP diastolic 49–68; PULSE 93–107; RESP 16–20; TEMP 35.9–36.4; O2SAT 95–98
[2024-05-23] MEDS: PIPERACILLN/TAZ 3.375GM/NS50ML 3.375 GM/50 ML BAG IVPB ×3 (05:22→17:35)
[2024-05-23 06:00] LABS: Estimated CRCL calculation 75 ml/min; Estimated Glomerular Filt Rate > 60
--- NOTE | 2024-05-23 06:29 | PC.NURSE ---
05/23/[address] Becker (pulmonary) for new consult. No answer, unable to leave message.
[2024-05-23] MEDS: oxyCODONE HCL (*CRX) 5 MG TAB IR PO ×4 (08:09→21:42)
[2024-05-23] MEDS: GABAPENTIN 300 MG CAPSULE 600 MG PO ×3 (08:10→17:34)
[2024-05-23] MEDS: APIXABAN 5 MG TABLET PO (08:10)
[2024-05-23] MEDS: PANTOPRAZOLE 40 MG TABLET PO (08:11)
[2024-05-23] MEDS: LIDOCAINE 5% PATCH 2 PATCH TRANSDERM (08:11)
[2024-05-23] MEDS: ONDANSETRON INJ 4 MG/2 ML VIAL IV PUSH (08:19)
--- NOTE | 2024-05-23 09:47 | P.PNIM_ITS ---
Progress Note: A&P Assessment and Plan (1) Colitis: Code(s): K52.9 - Noninfective gastroenteritis and colitis, unspecified Status: Acute Assessment and Plan: * Continue antibiotics of vancomycin and Zosyn for presumed possibility of infection in the colon as noted per CTA of abdomen and pelvis demonstrating a differential of possible diverticulitis or focal colitis aside from concern of potential primary colon cancer. * Continue clear liquid diet * Continue Protonix * Monitor labs and trend vitals. (2) Colonic mass: Code(s): K63.89 - Other specified diseases of intestine Status: Acute Assessment and Plan: * As evidenced by CTA chest abdomen and pelvis. * Awaiting General surgery consult. (3) Cancer: Code(s): C80.1 - Malignant (primary) neoplasm, unspecified Status: Acute Assessment and Plan: * Awaiting General surgery and pulmonology consult. * Patient had been previously made aware of the potential of a metastatic process during hospitalization at [facility] in March. She had not yet followed up. She has a reported Oncology appointment this coming . (4) Sepsis: Code(s): A41.9 - Sepsis, unspecified organism Status: Resolved Assessment and Plan: Upon presentation to emergency room Continue to monitor Early goal-directed therapy in progress 05/23/24: * Resolved. No longer meeting sepsis criteria. (5) Chronic anticoagulation: Code(s): Z79.01 - long term care phlebotomist (current) use of anticoagulants Status: Acute Assessment and Plan: * Continue Eliquis therapy in the setting of chronic splenic infarct. Time Spent With Patient Time with patient: 15 - 25 minutes Subjective Date/time seen: 05/23/24 09:47 Interval history: This patient is examined today at the bedside in interval assessment since being admitted to the hospital for abdominal pain. Patient was brought here from her snf where she resides with complaints of abdominal pain and upon arrival CTA of the chest abdomen and pelvis showed a 1.5 cm spiculated nodule in the lung as well as concerning findings in the colon for primary colon cancer. It is my understanding that patient was recently hospitalized in March at [facility] for acute pancreatitis and at that time they additionally found concerns for cancer but no follow-up has been done to this date. Patient was then discharged to the snf and began having abdominal pain leading to her current admission in overall situation. Patient has been admitted and is awaiting General surgery consult and pulmonology consult. Has no new complaints today, still endorsing abdominal pain that is diffuse and denies any acute shortness of breath. Review of Systems Review of Systems: All systems reviewed & are unremarkable except as noted in HPI and below Objective Data Vital Signs Vital Signs: Vital Signs - 24 hr 05/22/24 11:05 05/22/24 13:55 05/22/24 13:57 Temperature 98.6 F Pulse Rate 115 H 108 H Respiratory Rate 16 26 H Blood Pressure 114/64 112/100 H Pulse Oximetry 97 95 Oxygen Delivery Room Air Oxygen Flow Rate 05/22/24 14:00 05/22/24 14:01 05/22/24 14:05 Temperature Pulse Rate 108 H 108 H 109 H Respiratory Rate 21 H 17 20 Blood Pressure 101/69 101/69 Pulse Oximetry 97 96 99 Oxygen Delivery Oxygen Flow Rate 05/22/24 14:15 05/22/24 14:16 05/22/24 14:30 Temperature Pulse Rate 108 H 109 H 107 H Respiratory Rate 20 17 22 H Blood Pressure 110/59 L Pulse Oximetry 95 94 Oxygen Delivery Oxygen Flow Rate 05/22/24 14:31 05/22/24 14:45 05/22/24 14:46 Temperature Pulse Rate 110 H 112 H 112 H Respiratory Rate 25 H 22 H 27 H Blood Pressure 99/63 L 103/62 Pulse Oximetry Oxygen Delivery Oxygen Flow Rate 05/22/24 15:00 05/22/24 15:01 05/22/24 15:07 Temperature Pulse Rate 110 H 109 H 109 H Respiratory Rate 25 H 25 H 18 Blood Pressure 107/68 107/69 Pulse Oximetry 94 93 99 Oxygen Delivery Oxygen Flow Rate 05/22/24 15:15 05/22/24 15:16 05/22/24 15:30 Temperature Pulse Rate 106 H 106 H 108 H Respiratory Rate 16 15 20 Blood Pressure 103/67 Pulse Oximetry 95 95 78 L Oxygen Delivery Oxygen Flow Rate 05/22/24 15:36 05/22/24 15:45 05/22/24 16:00 Temperature Pulse Rate 113 H 109 H 109 H Respiratory Rate 23 H 20 17 Blood Pressure 119/69 Pulse Oximetry 97 98 97 Oxygen Delivery Oxygen Flow Rate 05/22/24 16:01 05/22/24 16:15 05/22/24 16:30 Temperature Pulse Rate 109 H 119 H 116 H Respiratory Rate 23 H 22 H 24 H Blood Pressure 114/70 Pulse Oximetry 98 99 99 Oxygen Delivery Oxygen Flow Rate 05/22/24 16:58 05/22/24 16:59 05/22/24 17:00 Temperature Pulse Rate 128 H 128 H 126 H Respiratory Rate 24 H 26 H 23 H Blood Pressure 117/62 Pulse Oximetry 97 97 97 Oxygen Delivery Oxygen Flow Rate 05/22/24 17:01 05/22/24 17:15 05/22/24 17:30 Temperature Pulse Rate 126 H 125 H 126 H Respiratory Rate 18 20 20 Blood Pressure 117/62 Pulse Oximetry 95 90 Oxygen Delivery Oxygen Flow Rate 05/22/24 17:45 05/22/24 17:47 05/22/24 18:00 Temperature Pulse Rate 123 H 123 H 121 H Respiratory Rate 21 H 21 H 24 H Blood Pressure 119/62 Pulse Oximetry Oxygen Delivery Oxygen Flow Rate 05/22/24 18:14 05/22/24 18:15 05/22/24 18:30 Temperature Pulse Rate 122 H 123 H 121 H Respiratory Rate 20 20 21 H Blood Pressure 119/62 Pulse Oximetry 94 93 95 Oxygen Delivery Oxygen Flow Rate 05/22/24 18:31 05/22/24 18:32 05/22/24 18:45 Temperature Pulse Rate 122 H 117 H Respiratory Rate 22 H 20 Blood Pressure 107/80 Pulse Oximetry 95 95 96 Oxygen Delivery Nasal Cannula Oxygen Flow Rate 2 05/22/24 19:00 05/22/24 19:15 05/22/24 19:16 Temperature Pulse Rate 115 H 116 H 114 H Respiratory Rate 20 17 17 Blood Pressure 104/66 Pulse Oximetry 97 97 100 Oxygen Delivery Oxygen Flow Rate 05/22/24 19:17 05/22/24 19:30 05/22/24 19:45 Temperature Pulse Rate 114 H 113 H 111 H Respiratory Rate 18 19 19 Blood Pressure Pulse Oximetry 100 97 97 Oxygen Delivery Oxygen Flow Rate 05/22/24 20:00 05/22/24 20:01 05/22/24 20:15 Temperature Pulse Rate 110 H 109 H 106 H Respiratory Rate 19 20 17 Blood Pressure 112/67 Pulse Oximetry 98 97 98 Oxygen Delivery Oxygen Flow Rate 05/22/24 20:30 05/22/24 20:47 05/22/24 21:36 Temperature Pulse Rate 107 H 109 H 106 H Respiratory Rate 20 16 Blood Pressure Pulse Oximetry 99 Oxygen Delivery Oxygen Flow Rate 05/22/24 21:45 05/22/24 22:54 05/23/24 00:00 Temperature 97.3 F L Pulse Rate 101 H 106 H Respiratory Rate 20 Blood Pressure 102/44 L Pulse Oximetry 100 Oxygen Delivery Room Air Oxygen Flow Rate 05/23/24 00:30 05/23/24 04:00 05/23/24 06:00 Temperature 97.5 F L 97.0 F L Pulse Rate 99 100 93 Respiratory Rate 18 20 Blood Pressure 102/55 L 105/58 L Pulse Oximetry 97 98 Oxygen Delivery Oxygen Flow Rate 05/23/24 06:00 Temperature 97.0 F L Pulse Rate 93 Respiratory Rate 20 Blood Pressure 105/58 L Pulse Oximetry 98 Oxygen Delivery Oxygen Flow Rate Intake/Output Intake/Output: Intake & Output 05/20/24 05/21/24 05/22/24 05/23/24 23:59 23:59 23:59 23:59 Intake Total 2750 650 Balance 2750 650 Meds/Results Medications: Active Medications Generic Name Dose Route Start Last Admin Trade Name Freq PRN Reason Stop Dose Admin Acetaminophen/Butalbital/Caffeine 1 tab 05/22/24 23:48 Acetaminophen/Butalbital/Caffeine 325-50-40 Mg Tablet (Fioricet) PO BID PRN pain 4-6 Alprazolam 0.25 mg 05/23/24 09:46 Alprazolam (*Crx) 0.25 Mg Tablet PO TID PRN Anxiety Amitriptyline HCl 75 mg 05/23/24 21:00 Amitriptyline Hcl 25 Mg Tablet PO HS GEOVANNI Apixaban 5 mg 05/23/24 09:00 05/23/24 08:10 Apixaban 5 Mg Tablet PO 5 mg Q12HR GEOVANNI Administration Gabapentin 600 mg 05/23/24 09:00 05/23/24 08:10 Gabapentin 300 Mg Capsule PO 600 mg TID GEOVANNI Administration Piperacillin/Tazobactam/Dextrose 3.375 gm in 50 mls @ 100 mls/hr 05/23/24 00:00 05/23/24 05:52 Zosyn 3.375 Gm/Ns 50 Ml IVPB Infused Q6H GEOVANNI Infusion Vancomycin HCl 1,500 mg in 500 mls @ 250 mls/hr 05/23/24 13:00 Vancomycin 1,500 Mg/Ns 500 Ml IVPB Q18H GEOVANNI Lidocaine 2 patch 05/23/24 09:00 05/23/24 08:11 Lidocaine 5% Patch TRANSDERM 2 patch DAILY GEOVANNI Administration Ondansetron HCl 4 mg 05/22/24 23:26 05/23/24 08:19 Ondansetron Inj 4 Mg/2 Ml Vial IV PUSH 4 mg Q6H PRN Administration Nausea And Vomiting Oxycodone HCl 5 mg 05/22/24 23:37 05/23/24 08:09 Oxycodone Hcl (*Crx) 5 Mg Tab Ir PO 5 mg Q4H PRN Administration pain 7-10 Pantoprazole Sodium 40 mg 05/23/24 09:00 05/23/24 08:11 Pantoprazole 40 Mg Tablet PO 40 mg QAM GEOVANNI Administration Polyethylene Glycol 17 gm 05/22/24 23:37 Polyethylene Glycol 3350 17 Gm Powd.Pack PO DAILY PRN constipation Radiology Results: ITS Impressions Chest/Abdomen/Pelvis CTA 05/22/24 13:13 IMPRESSION: 1. 1.5 cm spiculated nodule at the lingula concerning for primary bronchogenic carcinoma. If there is no prior outside imaging to confirm long-term stability would recommend further evaluation with CT-guided biopsy. 2. Stranding and wall thickening at the splenic flexure with nodular extension of soft tissue into the pericolonic fat and mild mesenteric lymphadenopathy which is highly concerning for primary colon cancer. Differential would include diverticulitis or focal colitis. Recommend colonoscopy for further evaluation. Labs Labs: Laboratory Results - last 24 hr 05/22/24 05/22/24 05/22/24 11:59 12:12 14:08 WBC 13.0 H RBC 4.15 L Hgb 9.5 L Hct 32.1 L MCV 77.3 L MCH 22.9 L MCHC 29.6 L RDW 16.0 H Plt Count 432 H MPV 10.3 Immature Gran % (Auto) 0.5 Neut % (Auto) 62.5 Lymph % (Auto) 28.7 [place] % (Auto) 6.9 Eos % (Auto) 1.2 Baso % (Auto) 0.2 Lymph # (Auto) 3.72 H [place] # (Auto) 0.9 H Eos # (Auto) 0.2 Baso # (Auto) 0.0 Abs Immat Gran (auto) 0.06 H Absolute Neuts (auto) 8.1 H Absolute Nucleated RBC 0.000 Nucleated RBC % 0.0 Platelet Estimate Increased Polychromasia 1+ Hypochromasia 1+ Anisocytosis 1+ Schistocytes None seen PT 17.5 H INR 1.4 APTT 45.0 H Sodium 135 L Potassium 3.9 Chloride 101 Carbon Dioxide 22 Anion Gap 12 BUN 12 Creatinine 0.66 L Estim Creat Clear Calc 66 Estimated GFR > 60 Glucose 104 POC Capillary Glucose 92 Lactic Acid Calcium 9.5 Total Bilirubin 0.4 AST 21 ALT 14 Alkaline Phosphatase 152 H Troponin I < 0.012 NT-Pro-B Natriuret Pep 79 Total Protein 8.0 Albumin 4.2 Lipase 37 TSH (Reflex) 1.110 Urine Color Yellow Urine Appearance Clear Urine pH 6.5 Ur Specific [place] 1.011 Urine Protein Negative Urine Glucose (UA) Negative Urine Ketones Negative Ur Blood (Man) Negative Urine Nitrate Negative Urine Bilirubin Negative Urine Urobilinogen 0.2 Leukocyte Esterase Rfl Negative 05/22/24 05/22/24 05/23/24 17:45 18:02 05:21 WBC RBC Hgb Hct MCV MCH MCHC RDW Plt Count MPV Immature Gran % (Auto) Neut % (Auto) Lymph % (Auto) [place] % (Auto) Eos % (Auto) Baso % (Auto) Lymph # (Auto) [place] # (Auto) Eos # (Auto) Baso # (Auto) Abs Immat Gran (auto) Absolute Neuts (auto) Absolute Nucleated RBC Nucleated RBC % Platelet Estimate Polychromasia Hypochromasia Anisocytosis Schistocytes PT INR APTT Sodium Potassium Chloride Carbon Dioxide Anion Gap BUN Creatinine 0.60 L Estim Creat Clear Calc 75 Estimated GFR > 60 Glucose POC Capillary Glucose Lactic Acid 1.8 Calcium Total Bilirubin AST ALT Alkaline Phosphatase Troponin I NT-Pro-B Natriuret Pep Total Protein Albumin Lipase 37 TSH (Reflex) Urine Color Urine Appearance Urine pH Ur Specific [place] Urine Protein Urine Glucose (UA) Urine Ketones Ur Blood (Man) Urine Nitrate Urine Bilirubin Urine Urobilinogen Leukocyte Esterase Rfl Quality VTE Prophylaxis VTE prophylaxis: pharmacologic ordered
[2024-05-23 11:23] LABS: Carcinoembryonic Antigen 4.5 ng/mL (0.0-3.0)
[2024-05-23] MEDS: ALPRAZolam (*CRX) 0.25 MG TABLET PO ×2 (11:45→18:26)
[2024-05-23] MEDS: VANCOMYCIN 1,500 MG/NS 500 ML 1,500 MG/500 ML BAG 250 MG IVPB (13:04)
--- NOTE | 2024-05-23 13:04 | P.CONGS_ITS ---
Assessment and Plan Assessment and plan (1) Abnormal CT of the abdomen: Code(s): R93.5 - Abnormal findings on diagnostic imaging of other abdominal regions, including retroperitoneum Status: Acute Assessment and Plan: * Patient has chronic RUQ abdominal pain that has been ongoing for many years. Etiology of this is unclear. Her pain has become more intense and constant recently, which prompted her transport to the ER. CT findings of stranding and wall thickening of the splenic flexure with nodular extension of soft tissue into pericolonic fat and mild mesenteric lymphadenopathy concerning for primary colon cancer. Other possible differentials would be colitis or diverticulitis. She has a family history of colon cancer and has not had a colonoscopy in at least 10 years per the patient. There is no evidence of an obstruction or perforation. She does not have an acute surgical abdomen. No indication for urgent surgical intervention at this time. We would recommend to continue with antibiotics and GI consultation for possible colonoscopy to further evaluate. This is also something that could be done as an outpatient if needed. Will order a CEA level. Will continue to follow along. (2) Colitis: Code(s): K52.9 - Noninfective gastroenteritis and colitis, unspecified Status: Acute Assessment and Plan: * Continue antibiotics and supportive care. See plan above. (3) Lung nodule: Code(s): R91.1 - Solitary pulmonary nodule Status: Acute Assessment and Plan: * Patient was aware of the lung nodule from her [place] hospitalization in March. She has not had a biopsy. She was scheduled to see an Oncologist in follow-up on . (4) Chronic anticoagulation: Code(s): Z79.01 - supervisor intermediates (current) use of anticoagulants Status: Acute Assessment and Plan: * Patient is on Eliquis but not clear why. 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 No infarct on current CT. Eliquis was resumed. (5) Sepsis: Code(s): A41.9 - Sepsis, unspecified organism Status: Resolved Assessment and Plan: * Presented with tachycardia, leukocytosis, and mild hypotension that responded to IV fluids. Blood cx pending. Continue antibiotics. Plan I have discussed the patient's case and plan of care with Dr. Key. Thank you for allowing us to see the patient in consultation and we will continue to follow along with you. History of Present Illness Consult details Consult date: 05/23/24 Reason for consult: other (Colonic mass) Requesting physician: Jamaica Green MD Narrative: This is a 63-year-old woman who was brought in from the longterm with complaints of abdominal pain. She was recently hospitalized for pancreatitis at an outlying facility and required transfer to [place]. She was reportedly hospitalized for 40 days and discharged on April 13 to a halfway facility for rehab. She reports a longstanding history of right upper quadrant abdominal pain that is intermittent. She denies any known alleviating or aggravating factors. This pain has brought her to outlying hospitals previously when it would get more intense, but she reports never being specifically diagnosed with anything that is causing the pain. She also reports chronic nausea, but no vomiting. She also at times deals with loose stools intermittently, but denies any blood in her stool. Her pain has progressed since she was discharged from [place] and over the past few days, the pain has become constant. This is what prompted her to come into the ED yesterday. In the ED, labs showed a white blood cell count of 13,000, hemoglobin 9.5, hematocrit 32.1, INR 1.4, troponin negative. UA negative. CTA chest, abdomen, and pelvis showed a 1.5 cm spiculated nodule at the lingula concerning for primary bronchogenic carcinoma, and stranding and wall thickening at the splenic flexure with nodular extension of soft tissue into the pericolonic fat and mild mesenteric lymphadenopathy which is highly concerning for primary colon cancer verses other possibilities include diverticulitis or focal colitis. She was admitted to the hospitalist service and is currently on clear liquids. She was started on IV antibiotics. Our service has been consulted for possible colon mass. She reports having an EGD and colonoscopy many years ago, at least 10 years ago. She cannot recall the results of that colonoscopy but believes it was unremarkable. She also appears to be on Eliquis, but is unsure why. She is a poor historian in regards to her medical history and home medications. Review of Systems 2 Review of Systems: All systems reviewed & are unremarkable except as noted in HPI and below PMFSH Past Medical History Medical History History of pancreatitis Chronic anticoagulation Surgical History Surgical History History of hysterectomy History of cholecystectomy Family History Family History Sibling Carcinoma of colon Social History Social History Smoking status: Former smoker Tobacco type: cigarettes Alcohol intake: former Substance use: never Do You Feel Safe in your Home?: Yes Lack of Transportation: No Lack of Food: Never True Current Housing: I Have Housing Concerned About Future Housing: No Difficulty Paying Gas/Electric Bills: No Difficulty Paying for Meds: No Currently Unemployed: No Education: Decline to Answer Difficulty w/ Childcare or Family Care: No Spiritual care concerns: No Meds Home Medications and Allergies Home Medications ?Medication ?Instructions ?Recorded ?Confirmed ?Type amitriptyline 75 mg tablet 75 mg PO HS 05/22/24 05/22/24 History apixaban 5 mg tablet (Eliquis) 5 mg PO BID 05/22/24 05/22/24 History fyqfwrvymd-syhjpdiapbdbq-pfalsjcj 1 cap PO BID PRN pain 05/22/24 05/22/24 History 50 mg-300 mg-40 mg capsule (Fioricet) diphenhydramine-zinc acetate 2 1 applic topical BID PRN itching 05/22/24 05/22/24 History %-0.1 % topical cream (Wal-Dryl (diphenhydramine-Zn acetate)) gabapentin 600 mg tablet 600 mg PO TID 05/22/24 05/22/24 History hydroxyzine HCl 25 mg tablet 25 mg PO TID PRN itching 05/22/24 05/22/24 History lidocaine 4 % topical patch 2 patch topical DAILY 05/22/24 05/22/24 History (Aspercreme (lidocaine)) ondansetron 4 mg disintegrating 4 mg PO Q6H PRN nausea and vomiting 05/22/24 05/22/24 History tablet oxycodone 5 mg tablet 5 mg PO Q4H PRN pain 05/22/24 05/22/24 History pantoprazole 40 mg tablet,delayed 40 mg PO QAM 05/22/24 05/22/24 History release polyethylene glycol 3350 17 17 g PO DAILY PRN constipation 05/22/24 05/22/24 History gram/dose oral powder (Miralax) prochlorperazine maleate 10 mg 10 mg PO Q8H PRN nausea and 05/22/24 05/22/24 History tablet (Compazine) vomiting Allergies Allergy/AdvReac Type Severity Reaction Status Date / Time haloperidol AdvReac Mild Nausea and Verified 05/23/24 06:44 Vomiting morphine AdvReac the Verified 05/23/24 06:44 shakes Vital Signs Vital Signs - 24 hr 05/22/24 13:55 05/22/24 13:57 05/22/24 14:00 Temperature Pulse Rate 108 H 108 H Respiratory Rate 26 H 21 H Blood Pressure 112/100 H Pulse Oximetry 95 97 Oxygen Delivery Oxygen Flow Rate 05/22/24 14:01 05/22/24 14:05 05/22/24 14:15 Temperature Pulse Rate 108 H 109 H 108 H Respiratory Rate 17 20 20 Blood Pressure 101/69 101/69 Pulse Oximetry 96 99 95 Oxygen Delivery Oxygen Flow Rate 05/22/24 14:16 05/22/24 14:30 05/22/24 14:31 Temperature Pulse Rate 109 H 107 H 110 H Respiratory Rate 17 22 H 25 H Blood Pressure 110/59 L 99/63 L Pulse Oximetry 94 Oxygen Delivery Oxygen Flow Rate 05/22/24 14:45 05/22/24 14:46 05/22/24 15:00 Temperature Pulse Rate 112 H 112 H 110 H Respiratory Rate 22 H 27 H 25 H Blood Pressure 103/62 Pulse Oximetry 94 Oxygen Delivery Oxygen Flow Rate 05/22/24 15:01 05/22/24 15:07 05/22/24 15:15 Temperature Pulse Rate 109 H 109 H 106 H Respiratory Rate 25 H 18 16 Blood Pressure 107/68 107/69 Pulse Oximetry 93 99 95 Oxygen Delivery Oxygen Flow Rate 05/22/24 15:16 05/22/24 15:30 05/22/24 15:36 Temperature Pulse Rate 106 H 108 H 113 H Respiratory Rate 15 20 23 H Blood Pressure 103/67 119/69 Pulse Oximetry 95 78 L 97 Oxygen Delivery Oxygen Flow Rate 05/22/24 15:45 05/22/24 16:00 05/22/24 16:01 Temperature Pulse Rate 109 H 109 H 109 H Respiratory Rate 20 17 23 H Blood Pressure 114/70 Pulse Oximetry 98 97 98 Oxygen Delivery Oxygen Flow Rate 05/22/24 16:15 05/22/24 16:30 05/22/24 16:58 Temperature Pulse Rate 119 H 116 H 128 H Respiratory Rate 22 H 24 H 24 H Blood Pressure Pulse Oximetry 99 99 97 Oxygen Delivery Oxygen Flow Rate 05/22/24 16:59 05/22/24 17:00 05/22/24 17:01 Temperature Pulse Rate 128 H 126 H 126 H Respiratory Rate 26 H 23 H 18 Blood Pressure 117/62 117/62 Pulse Oximetry 97 97 95 Oxygen Delivery Oxygen Flow Rate 05/22/24 17:15 05/22/24 17:30 05/22/24 17:45 Temperature Pulse Rate 125 H 126 H 123 H Respiratory Rate 20 20 21 H Blood Pressure Pulse Oximetry 90 Oxygen Delivery Oxygen Flow Rate 05/22/24 17:47 05/22/24 18:00 05/22/24 18:14 Temperature Pulse Rate 123 H 121 H 122 H Respiratory Rate 21 H 24 H 20 Blood Pressure 119/62 119/62 Pulse Oximetry 94 Oxygen Delivery Oxygen Flow Rate 05/22/24 18:15 05/22/24 18:30 05/22/24 18:31 Temperature Pulse Rate 123 H 121 H 122 H Respiratory Rate 20 21 H 22 H Blood Pressure 107/80 Pulse Oximetry 93 95 95 Oxygen Delivery Oxygen Flow Rate 05/22/24 18:32 05/22/24 18:45 05/22/24 19:00 Temperature Pulse Rate 117 H 115 H Respiratory Rate 20 20 Blood Pressure Pulse Oximetry 95 96 97 Oxygen Delivery Nasal Cannula Oxygen Flow Rate 2 05/22/24 19:15 05/22/24 19:16 05/22/24 19:17 Temperature Pulse Rate 116 H 114 H 114 H Respiratory Rate 17 17 18 Blood Pressure 104/66 Pulse Oximetry 97 100 100 Oxygen Delivery Oxygen Flow Rate 05/22/24 19:30 05/22/24 19:45 05/22/24 20:00 Temperature Pulse Rate 113 H 111 H 110 H Respiratory Rate 19 19 19 Blood Pressure Pulse Oximetry 97 97 98 Oxygen Delivery Oxygen Flow Rate 05/22/24 20:01 05/22/24 20:15 05/22/24 20:30 Temperature Pulse Rate 109 H 106 H 107 H Respiratory Rate 20 17 20 Blood Pressure 112/67 Pulse Oximetry 97 98 99 Oxygen Delivery Oxygen Flow Rate 05/22/24 20:47 05/22/24 21:36 05/22/24 21:45 Temperature Pulse Rate 109 H 106 H Respiratory Rate 16 Blood Pressure Pulse Oximetry Oxygen Delivery Room Air Oxygen Flow Rate 05/22/24 22:54 05/23/24 00:00 05/23/24 00:30 Temperature 97.3 F L 97.5 F L Pulse Rate 101 H 106 H 99 Respiratory Rate 20 18 Blood Pressure 102/44 L 102/55 L Pulse Oximetry 100 97 Oxygen Delivery Oxygen Flow Rate 05/23/24 04:00 05/23/24 06:00 05/23/24 06:00 Temperature 97.0 F L 97.0 F L Pulse Rate 100 93 93 Respiratory Rate 20 20 Blood Pressure 105/58 L 105/58 L Pulse Oximetry 98 98 Oxygen Delivery Oxygen Flow Rate 05/23/24 08:05 Temperature Pulse Rate 97 Respiratory Rate Blood Pressure Pulse Oximetry Oxygen Delivery Oxygen Flow Rate Exam 2 Const: General: comfortable and no acute distress Nutritional Appearance: o verweight Orientation/consciousness: patient oriented x3 HENMT: Head: normocephalic and atraumatic Ears: hearing grossly normal bilaterally Mouth: Yes moist mucous membranes Eyes: General: appearance normal, both eyes and all related structures P upils: Equal, round and reactive pupils present Neck: Neck: normal visual inspection and full ROM Resp: Effort & Inspection: no respiratory distress Auscultation: clear to auscultation bilaterally Cardio: Rate: regular rate Rhythm: regular rhythm Peripheral pulses: P eripheral pulses 2+ throughout GI: Inspection: non-distended and scar (large RUQ transverse scar) GI Palp: Yes Soft to palpation, Yes Tenderness to palpation present (GI) (mild epigastric and RUQ pain), No Guarding due to palpation present (GI) and No Rebound tenderness present Auscultation: normal bowel sounds Skin: General skin exam: normal color Neuro: General: moves all extremities and no focal motor deficits Speech: n ormal speech Motor exam (neuro): 5/5 motor strength present throughout Extrem: General: normal to inspection and no edema Psych: Mental Status: mental status grossly normal Attitude: cooperative Insight: Good insight present (Psych) Judgement: Good judgement present (Psych) Results Labs 05/22/24 11:59 05/23/24 05:21 Labs: Abnormal lab results 05/23/24 05/23/24 Range/Units 05:18 05:21 Creatinine 0.60 L (0.7-1.0) mg/dL Carcinoembryonic Ag 4.5 H (0.0-3.0) ng/mL Diabetes panel 05/23/24 Range/Units 05:21 Creatinine 0.60 L (0.7-1.0) mg/dL Pituitary panel 05/23/24 Range/Units 05:21 Creatinine 0.60 L (0.7-1.0) mg/dL Adrenal panel 05/23/24 Range/Units 05:21 Creatinine 0.60 L (0.7-1.0) mg/dL All other labs normal. Imaging Additional studies: ITS Impressions Chest/Abdomen/Pelvis CTA 05/22/24 13:13 IMPRESSION: 1. 1.5 cm spiculated nodule at the lingula concerning for primary bronchogenic carcinoma. If there is no prior outside imaging to confirm long-term stability would recommend further evaluation with CT-guided biopsy. 2. Stranding and wall thickening at the splenic flexure with nodular extension of soft tissue into the pericolonic fat and mild mesenteric lymphadenopathy which is highly concerning for primary colon cancer. Differential would include diverticulitis or focal colitis. Recommend colonoscopy for further evaluation.
--- NOTE | 2024-05-23 13:41 | WPDGICN ---
Assessment and Plan Assessment and plan (1) Abnormal CT scan, colon: Code(s): R93.3 - Abnormal findings on diagnostic imaging of other parts of digestive tract Status: Acute Assessment and Plan: could be colon malignancy or colitis, started empirically on abx will assess with colonoscopy tomorrow, more recommendations after scope (2) Upper abdominal pain: Code(s): R10.10 - Upper abdominal pain, unspecified Status: Acute (3) Lung mass: Code(s): R91.8 - Other nonspecific abnormal finding of lung field Status: Acute Assessment and Plan: also will need to be investigated, possible malignancy (4) Chronic anticoagulation: Code(s): Z79.01 - [facility] (current) use of anticoagulants Status: Acute Assessment and Plan: eliquis on hold in preparation for scope (5) Leukocytosis: Code(s): D72.829 - Elevated white blood cell count, unspecified Status: Acute Assessment and Plan: on abx monitor GI Consult Note Consult date/time: 05/23/24 13:41 Reason for consult: abdominal pain, abnormal colon by ct scan HPI: Marily Cantu is a 63 year old female past medical history significant for chronic pain, neuropathy, chronic anticoagulation on eliquis. She was recently hospitalized for pancreatitis at an outlying facility and required transfer to [place]. She was reportedly hospitalized for 40 days and discharged on April 13 to a [facility] facility for rehab, apparently had pancreatitis. She is not best historian but says has chronic upper abdominal pain that is intermittent. Pain has become constant and more intense and finally came to ER. ED showed a white blood cell count of 13,000, hemoglobin 9.5, hematocrit 32.1, INR 1.4, troponin negative. UA negative. CTA chest, abdomen, and pelvis showed a 1.5 cm spiculated nodule at the lingula concerning for primary bronchogenic carcinoma, and stranding and wall thickening at the splenic flexure with nodular extension of soft tissue into the pericolonic fat and mild mesenteric lymphadenopathy which is highly concerning for primary colon cancer verses other possibilities include diverticulitis or focal colitis. Started empirically on abx, denies abdominal pain, last colonoscopy about 10 years ago. Review of Systems Constitutional: Constitutional: Denies body ache(s) Eyes: Eyes: Denies blurry vision ENT: Reports Normal hearing present Cardiovascular: Cardiovascular: Denies lightheadedness Respiratory: Respiratory: Denies chest congestion Gastrointestinal: Gastrointestinal: Reports abdominal pain Genitourinary: Genitourinary: Denies hematuria Musculoskeletal: Musculoskeletal: Denies neck pain Integumentary/Breasts: Skin/Breast: Denies rash Neurologic: Denies Abnormal speech present Psychiatric: Psychiatric: Denies behavioral changes [facility] Past Medical History Medical History (Updated 05/23/24 @ 13:47 by Wilmer Ruiz MD) Leukocytosis Lung mass Upper abdominal pain Abnormal CT scan, colon History of pancreatitis Chronic anticoagulation Surgical History Surgical History History of hysterectomy History of cholecystectomy Family History Family History Sibling Carcinoma of colon Social History Social History Smoking status: Former smoker Tobacco type: cigarettes Alcohol intake: former Substance use: never Do You Feel Safe in your Home?: Yes Lack of Transportation: No Lack of Food: Never True Current Housing: I Have Housing Concerned About Future Housing: No Difficulty Paying Gas/Electric Bills: No Difficulty Paying for Meds: No Currently Unemployed: No Education: Decline to Answer Difficulty w/ Childcare or Family Care: No Spiritual care concerns: No Meds Home Medications and Allergies Home Medications ?Medication ?Instructions ?Recorded ?Confirmed ?Type amitriptyline 75 mg tablet 75 mg PO HS 05/22/24 05/22/24 History apixaban 5 mg tablet (Eliquis) 5 mg PO BID 05/22/24 05/22/24 History ftcvlgwjav-fgsjbsuridhwt-efqcippd 1 cap PO BID PRN pain 05/22/24 05/22/24 History 50 mg-300 mg-40 mg capsule (Fioricet) diphenhydramine-zinc acetate 2 1 applic topical BID PRN itching 05/22/24 05/22/24 History %-0.1 % topical cream (Wal-Dryl (diphenhydramine-Zn acetate)) gabapentin 600 mg tablet 600 mg PO TID 05/22/24 05/22/24 History hydroxyzine HCl 25 mg tablet 25 mg PO TID PRN itching 05/22/24 05/22/24 History lidocaine 4 % topical patch 2 patch topical DAILY 05/22/24 05/22/24 History (Aspercreme (lidocaine)) ondansetron 4 mg disintegrating 4 mg PO Q6H PRN nausea and vomiting 05/22/24 05/22/24 History tablet oxycodone 5 mg tablet 5 mg PO Q4H PRN pain 05/22/24 05/22/24 History pantoprazole 40 mg tablet,delayed 40 mg PO QAM 05/22/24 05/22/24 History release polyethylene glycol 3350 17 17 g PO DAILY PRN constipation 05/22/24 05/22/24 History gram/dose oral powder (Miralax) prochlorperazine maleate 10 mg 10 mg PO Q8H PRN nausea and 05/22/24 05/22/24 History tablet (Compazine) vomiting Allergies Allergy/AdvReac Type Severity Reaction Status Date / Time haloperidol AdvReac Mild Nausea and Verified 05/23/24 06:44 Vomiting morphine AdvReac the Verified 05/23/24 06:44 shakes Vital Signs Vital Signs - 24 hr 05/22/24 13:55 05/22/24 13:57 05/22/24 14:00 Temperature Pulse Rate 108 H 108 H Respiratory Rate 26 H 21 H Blood Pressure 112/100 H Pulse Oximetry 95 97 Oxygen Delivery Oxygen Flow Rate 05/22/24 14:01 05/22/24 14:05 05/22/24 14:15 Temperature Pulse Rate 108 H 109 H 108 H Respiratory Rate 17 20 20 Blood Pressure 101/69 101/69 Pulse Oximetry 96 99 95 Oxygen Delivery Oxygen Flow Rate 05/22/24 14:16 05/22/24 14:30 05/22/24 14:31 Temperature Pulse Rate 109 H 107 H 110 H Respiratory Rate 17 22 H 25 H Blood Pressure 110/59 L 99/63 L Pulse Oximetry 94 Oxygen Delivery Oxygen Flow Rate 05/22/24 14:45 05/22/24 14:46 05/22/24 15:00 Temperature Pulse Rate 112 H 112 H 110 H Respiratory Rate 22 H 27 H 25 H Blood Pressure 103/62 Pulse Oximetry 94 Oxygen Delivery Oxygen Flow Rate 05/22/24 15:01 05/22/24 15:07 05/22/24 15:15 Temperature Pulse Rate 109 H 109 H 106 H Respiratory Rate 25 H 18 16 Blood Pressure 107/68 107/69 Pulse Oximetry 93 99 95 Oxygen Delivery Oxygen Flow Rate 05/22/24 15:16 05/22/24 15:30 05/22/24 15:36 Temperature Pulse Rate 106 H 108 H 113 H Respiratory Rate 15 20 23 H Blood Pressure 103/67 119/69 Pulse Oximetry 95 78 L 97 Oxygen Delivery Oxygen Flow Rate 05/22/24 15:45 05/22/24 16:00 05/22/24 16:01 Temperature Pulse Rate 109 H 109 H 109 H Respiratory Rate 20 17 23 H Blood Pressure 114/70 Pulse Oximetry 98 97 98 Oxygen Delivery Oxygen Flow Rate 05/22/24 16:15 05/22/24 16:30 05/22/24 16:58 Temperature Pulse Rate 119 H 116 H 128 H Respiratory Rate 22 H 24 H 24 H Blood Pressure Pulse Oximetry 99 99 97 Oxygen Delivery Oxygen Flow Rate 05/22/24 16:59 05/22/24 17:00 05/22/24 17:01 Temperature Pulse Rate 128 H 126 H 126 H Respiratory Rate 26 H 23 H 18 Blood Pressure 117/62 117/62 Pulse Oximetry 97 97 95 Oxygen Delivery Oxygen Flow Rate 05/22/24 17:15 05/22/24 17:30 05/22/24 17:45 Temperature Pulse Rate 125 H 126 H 123 H Respiratory Rate 20 20 21 H Blood Pressure Pulse Oximetry 90 Oxygen Delivery Oxygen Flow Rate 05/22/24 17:47 05/22/24 18:00 05/22/24 18:14 Temperature Pulse Rate 123 H 121 H 122 H Respiratory Rate 21 H 24 H 20 Blood Pressure 119/62 119/62 Pulse Oximetry 94 Oxygen Delivery Oxygen Flow Rate 05/22/24 18:15 05/22/24 18:30 05/22/24 18:31 Temperature Pulse Rate 123 H 121 H 122 H Respiratory Rate 20 21 H 22 H Blood Pressure 107/80 Pulse Oximetry 93 95 95 Oxygen Delivery Oxygen Flow Rate 05/22/24 18:32 05/22/24 18:45 05/22/24 19:00 Temperature Pulse Rate 117 H 115 H Respiratory Rate 20 20 Blood Pressure Pulse Oximetry 95 96 97 Oxygen Delivery Nasal Cannula Oxygen Flow Rate 2 05/22/24 19:15 05/22/24 19:16 05/22/24 19:17 Temperature Pulse Rate 116 H 114 H 114 H Respiratory Rate 17 17 18 Blood Pressure 104/66 Pulse Oximetry 97 100 100 Oxygen Delivery Oxygen Flow Rate 05/22/24 19:30 05/22/24 19:45 05/22/24 20:00 Temperature Pulse Rate 113 H 111 H 110 H Respiratory Rate 19 19 19 Blood Pressure Pulse Oximetry 97 97 98 Oxygen Delivery Oxygen Flow Rate 05/22/24 20:01 05/22/24 20:15 05/22/24 20:30 Temperature Pulse Rate 109 H 106 H 107 H Respiratory Rate 20 17 20 Blood Pressure 112/67 Pulse Oximetry 97 98 99 Oxygen Delivery Oxygen Flow Rate 05/22/24 20:47 05/22/24 21:36 05/22/24 21:45 Temperature Pulse Rate 109 H 106 H Respiratory Rate 16 Blood Pressure Pulse Oximetry Oxygen Delivery Room Air Oxygen Flow Rate 05/22/24 22:54 05/23/24 00:00 05/23/24 00:30 Temperature 97.3 F L 97.5 F L Pulse Rate 101 H 106 H 99 Respiratory Rate 20 18 Blood Pressure 102/44 L 102/55 L Pulse Oximetry 100 97 Oxygen Delivery Oxygen Flow Rate 05/23/24 04:00 05/23/24 06:00 05/23/24 06:00 Temperature 97.0 F L 97.0 F L Pulse Rate 100 93 93 Respiratory Rate 20 20 Blood Pressure 105/58 L 105/58 L Pulse Oximetry 98 98 Oxygen Delivery Oxygen Flow Rate 05/23/24 08:05 Temperature Pulse Rate 97 Respiratory Rate Blood Pressure Pulse Oximetry Oxygen Delivery Oxygen Flow Rate Exam Const: General: comfortable and no acute distress Nutritional Appearance: overweight Orientation/consciousness: patient oriented x3 HENMT: Head: normocephalic and atraumatic Ears: hearing grossly normal bilaterally Mouth: Yes moist mucous membranes Eyes: General: appearance normal, both eyes and all related structures Pupils: Equal, round and reactive pupils present Neck: Neck: normal visual inspection and full ROM Resp: Effort & Inspection: no respiratory distress Auscultation: clear to auscultation bilaterally Cardio: Rate: regular rate GI: Inspection: non-distended and scar (large RUQ transverse scar) GI Palp: Yes Soft to palpation, Yes Tenderness to palpation present (GI) (mild epigastric and RUQ pain), No Guarding due to palpation present (GI) and No Rebound tenderness present Auscultation: normal bowel sounds Skin: General skin exam: normal color Neuro: General: moves all extremities and no focal motor deficits Speech: normal speech Motor exam (neuro): 5/5 motor strength present throughout Extrem: General: normal to inspection and no edema Psych: Mental Status: mental status grossly normal Attitude: cooperative Insight: Good insight present (Psych) Judgement: Good judgement present (Psych) Results Labs 05/22/24 11:59 05/23/24 05:21 Labs: BMP 05/23/24 05:21 Creatinine 0.60 L
[2024-05-23] MEDS: BISACODYL 5 MG TABLET EC 20 MG PO (17:35)
[2024-05-23] MEDS: polyethylene glycoL 3350 238 GM BOTTLE PO (18:19)
[2024-05-23] MEDS: AMITRIPTYLINE HCL 25 MG TABLET 75 MG PO (21:39)
[2024-05-24] VITALS (14 sets, daily range): BP systolic 96–117; BP diastolic 43–70; PULSE 60–122; RESP 16–22; TEMP 36.1–37; O2SAT 94–99
[2024-05-24] MEDS: MAGNESIUM CITRATE 300 ML BTL PO ×2 (00:01→06:54)
[2024-05-24] MEDS: ONDANSETRON INJ 4 MG/2 ML VIAL IV PUSH ×3 (05:04→18:31)
[2024-05-24] MEDS: PIPERACILLN/TAZ 3.375GM/NS50ML 3.375 GM/50 ML BAG IVPB ×5 (05:04→23:58)
[2024-05-24 06:06] LABS: Hematocrit 29.1 % (37.0-47.0); Hemoglobin 8.5 g/dL (12.0-15.0); Mean Corpuscular HGB Conc 29.2 g/dl (32-36); Mean Corpuscular Hemoglobin 23.4 pg (26-34); Mean Corpuscular Volume 79.9 fl (80-100); Mean Platelet Volume 10.2 fl (7.4-10.4); Platelet Count Result 402 k/mm3 (150-375); Red Blood Count 3.64 M/mm3 (4.2-5.4); Red Cell Distribution Width 15.7 % (11.5-14.5)
[2024-05-24 06:19] LABS: Estimated CRCL calculation 76 ml/min; Estimated Glomerular Filt Rate > 60
[2024-05-24 06:54] LABS: Vancomycin Trough 12.4 ug/mL (10.0-20.0)
[2024-05-24] MEDS: VANCOMYCIN 1,500 MG/NS 500 ML 1,500 MG/500 ML BAG 250 MG IVPB ×2 (08:31→20:29)
[2024-05-24] MEDS: LIDOCAINE 5% PATCH 2 PATCH TRANSDERM (08:32)
[2024-05-24] MEDS: oxyCODONE HCL (*CRX) 5 MG TAB IR PO ×2 (08:40→20:33)
--- NOTE | 2024-05-24 09:53 | P.PNGS_ITS ---
Progress Note: A&P Assessment and Plan (1) Abnormal CT of the abdomen: Code(s): R93.5 - Abnormal findings on diagnostic imaging of other abdominal regions, including retroperitoneum Status: Acute Assessment and Plan: * CT findings of wall thickening of the splenic flexure with lymphadenopathy, concerning for primary colon cancer versus colitis * Continue antibiotics * GI following and planning colonoscopy today (2) Colitis: Code(s): K52.9 - Noninfective gastroenteritis and colitis, unspecified Status: Acute Assessment and Plan: * Continue antibiotics and supportive care. See plan above. (3) Chronic anticoagulation: Code(s): Z79.01 - jail (current) use of anticoagulants Status: Acute Assessment and Plan: * On Eliquis (4) Sepsis: Code(s): A41.9 - Sepsis, unspecified organism Status: Resolved Plan I have discussed the patient's case and plan of care with Dr. Key. Subjective Subjective Date/Time Seen: 05/24/24 09:53 Patient reports: no new complaints, tolerating liquids well, flatus and bowel movement Interval history: No acute events overnight. Abdominal pain unchanged. She tolerated the bowel prep and plan for colonoscopy today. Exam Const: General: comfortable and no acute distress Orientation/consciousness: patient oriented x3 GI: Inspection: non-distended GI Palp: Yes Soft to palpation, Yes Tenderness to palpation present (GI) (Epigastric and right upper quadrant), No Guarding due to palpation present (GI) and No Rebound tenderness present Auscultation: normal bowel sounds Objective Data Vital Signs Vital Signs: Vital Signs - 24 hr 05/23/24 12:04 05/23/24 14:00 05/23/24 16:05 Temperature 96.6 F L Pulse Rate 98 104 H 97 Respiratory Rate 19 Blood Pressure 98/49 L Pulse Oximetry 95 Oxygen Delivery 05/23/24 20:00 05/23/24 20:00 05/23/24 20:55 Temperature 97.2 F L Pulse Rate 107 H 104 H Respiratory Rate 16 Blood Pressure 113/68 Pulse Oximetry 95 Oxygen Delivery Room Air 05/24/24 00:00 05/24/24 00:00 05/24/24 04:00 Temperature 97.6 F Pulse Rate 116 H 122 H 119 H Respiratory Rate 20 Blood Pressure 115/62 Pulse Oximetry 99 Oxygen Delivery 05/24/24 04:58 05/24/24 09:22 Temperature 97.5 F L 97.6 F Pulse Rate 115 H 105 H Respiratory Rate 18 18 Blood Pressure 117/58 L 117/60 Pulse Oximetry 96 94 Oxygen Delivery Intake/Output Intake/Output: Intake & Output 05/21/24 05/22/24 05/23/24 05/24/24 23:59 23:59 23:59 23:59 Intake Total 2750 2060 100 Output Total 1300 Balance 2750 760 100 Meds/Results Medications: Active Medications Generic Name Dose Route Start Last Admin Trade Name Freq PRN Reason Stop Dose Admin Acetaminophen/Butalbital/Caffeine 1 tab 05/22/24 23:48 Acetaminophen/Butalbital/Caffeine 325-50-40 Mg Tablet (Fioricet) PO BID PRN pain 4-6 Alprazolam 0.25 mg 05/23/24 09:46 05/23/24 18:26 Alprazolam (*Crx) 0.25 Mg Tablet PO 0.25 mg TID PRN Administration Anxiety Amitriptyline HCl 75 mg 05/23/24 21:00 05/23/24 21:39 Amitriptyline Hcl 25 Mg Tablet PO 75 mg HS GEOVANNI Administration Apixaban 5 mg 05/23/24 09:00 05/24/24 08:32 Apixaban 5 Mg Tablet PO Not Given Q12HR GEOVANNI Gabapentin 600 mg 05/23/24 09:00 05/23/24 17:34 Gabapentin 300 Mg Capsule PO 600 mg TID GEOVANNI Administration Piperacillin/Tazobactam/Dextrose 3.375 gm in 50 mls @ 100 mls/hr 05/23/24 00:00 05/24/24 05:34 Zosyn 3.375 Gm/Ns 50 Ml IVPB Infused Q6H GEOVANNI Infusion Vancomycin HCl 1,500 mg in 500 mls @ 250 mls/hr 05/24/24 08:00 05/24/24 08:31 Vancomycin 1,500 Mg/Ns 500 Ml IVPB 250 mls/hr Q12H GEOVANNI Administration Lidocaine 2 patch 05/23/24 09:00 05/24/24 08:32 Lidocaine 5% Patch TRANSDERM 2 patch DAILY GEOVANNI Administration Ondansetron HCl 4 mg 05/22/24 23:26 05/24/24 05:04 Ondansetron Inj 4 Mg/2 Ml Vial IV PUSH 4 mg Q6H PRN Administration Nausea And Vomiting Oxycodone HCl 5 mg 05/22/24 23:37 05/24/24 08:40 Oxycodone Hcl (*Crx) 5 Mg Tab Ir PO 5 mg Q4H PRN Administration pain 7-10 Pantoprazole Sodium 40 mg 05/23/24 09:00 05/23/24 08:11 Pantoprazole 40 Mg Tablet PO 40 mg QAM GEOVANNI Administration Radiology Results: ITS Impressions Chest/Abdomen/Pelvis CTA 05/22/24 13:13 IMPRESSION: 1. 1.5 cm spiculated nodule at the lingula concerning for primary bronchogenic carcinoma. If there is no prior outside imaging to confirm long-term stability would recommend further evaluation with CT-guided biopsy. 2. Stranding and wall thickening at the splenic flexure with nodular extension of soft tissue into the pericolonic fat and mild mesenteric lymphadenopathy which is highly concerning for primary colon cancer. Differential would include diverticulitis or focal colitis. Recommend colonoscopy for further evaluation. Labs Labs: Laboratory Results - last 24 hr 05/23/24 05/24/24 05:18 06:00 WBC 10.0 RBC 3.64 L Hgb 8.5 L Hct 29.1 L MCV 79.9 L MCH 23.4 L MCHC 29.2 L RDW 15.7 H Plt Count 402 H MPV 10.2 Creatinine 0.59 L Estim Creat Clear Calc 76 Estimated GFR > 60 Carcinoembryonic Ag 4.5 H Vancomycin Trough 12.4
[2024-05-24 10:15] LABS: Alanine Aminotransferase 18 U/L (6-35); Albumin Level 3.7 g/dL (3.5-5.1); Alkaline Phosphatase 147 U/L (38-126); Anion Gap 9 mmol/L (4-12); Aspartate Amino Transferase 28 U/L (14-36); Bilirubin,Total 0.2 mg/dL (0.2-1.3); Blood Urea Nitrogen 8 mg/dL (7-17); Calcium 8.8 mg/dL (8.4-10.2); Carbon Dioxide 21 mmol/L (22-30); Chloride 110 mmol/L (98-107); Estimated CRCL calculation 78 ml/min; Estimated Glomerular Filt Rate > 60; Glucose 98 mg/dL (65-110); Magnesium 2.5 mg/dL (1.6-2.3); Potassium 4.2 mmol/L (3.4-5.0); Sodium 140 mmol/L (137-145)
--- NOTE | 2024-05-24 11:03 | P.PNIM_ITS ---
Progress Note: A&P Assessment and Plan (1) Colitis: Code(s): K52.9 - Noninfective gastroenteritis and colitis, unspecified Status: Acute Assessment and Plan: * Continue antibiotics of vancomycin and Zosyn for presumed possibility of infection in the colon as noted per CTA of abdomen and pelvis demonstrating a differential of possible diverticulitis or focal colitis aside from concern of potential primary colon cancer. * Continue Protonix * Monitor labs and trend vitals. * NPO for colonoscopy today. (2) Colonic mass: Code(s): K63.89 - Other specified diseases of intestine Status: Acute Assessment and Plan: * As evidenced by CTA chest abdomen and pelvis. * Carcinoembryonic Ag level 4.5. * Colonscopy today showed: near-occlusive left colonic mass, malignant aspect. She needs urgent surgery evaluation, consult placed. Keep the patient on clear liquids for now and hold Eliquis. * General surgery consult. (3) Cancer: Code(s): C80.1 - Malignant (primary) neoplasm, unspecified Status: Acute Assessment and Plan: * Awaiting General surgery and pulmonology consult. * Patient had been previously made aware of the potential of a metastatic process during hospitalization at [facility] in March. She had not yet followed up. She has a reported Oncology appointment this coming . (4) Sepsis: Code(s): A41.9 - Sepsis, unspecified organism Status: Resolved Assessment and Plan: Upon presentation to emergency room Continue to monitor Early goal-directed therapy in progress 05/23/24: * Resolved. No longer meeting sepsis criteria. 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 HOLD for now for surgery consultation for colonic mass. Subjective Date/time seen: 05/24/24 11:03 Interval history: Patient reports pain in her right upper quadrant is an 8 , constant, and sharp. Patient reports nausea. Patient denies chest pain, palpitations, headache, dizziness, or vomiting. Patient is NPO for a colonoscopy this afternoon. Review of Systems Review of Systems: All systems reviewed & are unremarkable except as noted in HPI and below Exam Const: General: no acute distress and uncomfortable Eyes: Sclera: sclerae normal Resp: Effort & Inspection: normal respiratory effort Auscultation: clear to auscultation bilaterally Cardio: Rate: tachycardic (ST 112) GI: GI Palp: Yes Soft to palpation and Yes Tenderness to palpation present (GI) (mid epigastric and RUQ) Auscultation: normal bowel sounds Neuro: Speech: normal speech Extrem: General: no pedal edema Psych: Mental Status: mental status grossly normal Affect: normal affect Objective Data Vital Signs Vital Signs: Vital Signs - 24 hr 05/23/24 12:04 05/23/24 14:00 05/23/24 16:05 Temperature 96.6 F L Pulse Rate 98 104 H 97 Respiratory Rate 19 Blood Pressure 98/49 L Pulse Oximetry 95 Oxygen Delivery 05/23/24 20:00 05/23/24 20:00 05/23/24 20:55 Temperature 97.2 F L Pulse Rate 107 H 104 H Respiratory Rate 16 Blood Pressure 113/68 Pulse Oximetry 95 Oxygen Delivery Room Air 05/24/24 00:00 05/24/24 00:00 05/24/24 04:00 Temperature 97.6 F Pulse Rate 116 H 122 H 119 H Respiratory Rate 20 Blood Pressure 115/62 Pulse Oximetry 99 Oxygen Delivery 05/24/24 04:58 05/24/24 08:30 05/24/24 09:22 Temperature 97.5 F L 97.6 F Pulse Rate 115 H 105 H Respiratory Rate 18 18 Blood Pressure 117/58 L 117/60 Pulse Oximetry 96 94 Oxygen Delivery Room Air Intake/Output Intake/Output: Intake & Output 05/21/24 05/22/24 05/23/24 05/24/24 23:59 23:59 23:59 23:59 Intake Total 2750 2060 100 Output Total 1300 Balance 2750 760 100 Meds/Results Medications: Active Medications Generic Name Dose Route Start Last Admin Trade Name Freq PRN Reason Stop Dose Admin Acetaminophen/Butalbital/Caffeine 1 tab 05/22/24 23:48 Acetaminophen/Butalbital/Caffeine 325-50-40 Mg Tablet (Fioricet) PO BID PRN pain 4-6 Alprazolam 0.25 mg 05/23/24 09:46 05/23/24 18:26 Alprazolam (*Crx) 0.25 Mg Tablet PO 0.25 mg TID PRN Administration Anxiety Amitriptyline HCl 75 mg 05/23/24 21:00 05/23/24 21:39 Amitriptyline Hcl 25 Mg Tablet PO 75 mg HS GEOVANNI Administration Apixaban 5 mg 05/23/24 09:00 05/24/24 08:32 Apixaban 5 Mg Tablet PO Not Given Q12HR GEOVANNI Gabapentin 600 mg 05/23/24 09:00 05/23/24 17:34 Gabapentin 300 Mg Capsule PO 600 mg TID GEOVANNI Administration Piperacillin/Tazobactam/Dextrose 3.375 gm in 50 mls @ 100 mls/hr 05/23/24 00:00 05/24/24 05:34 Zosyn 3.375 Gm/Ns 50 Ml IVPB Infused Q6H GEOVANNI Infusion Vancomycin HCl 1,500 mg in 500 mls @ 250 mls/hr 05/24/24 08:00 05/24/24 08:31 Vancomycin 1,500 Mg/Ns 500 Ml IVPB 250 mls/hr Q12H GEOVANNI Administration Lidocaine 2 patch 05/23/24 09:00 05/24/24 08:32 Lidocaine 5% Patch TRANSDERM 2 patch DAILY GEOVANNI Administration Ondansetron HCl 4 mg 05/22/24 23:26 05/24/24 05:04 Ondansetron Inj 4 Mg/2 Ml Vial IV PUSH 4 mg Q6H PRN Administration Nausea And Vomiting Oxycodone HCl 5 mg 05/22/24 23:37 05/24/24 08:40 Oxycodone Hcl (*Crx) 5 Mg Tab Ir PO 5 mg Q4H PRN Administration pain 7-10 Pantoprazole Sodium 40 mg 05/23/24 09:00 05/23/24 08:11 Pantoprazole 40 Mg Tablet PO 40 mg QAM GEOVANNI Administration Radiology Results: ITS Impressions Chest/Abdomen/Pelvis CTA 05/22/24 13:13 IMPRESSION: 1. 1.5 cm spiculated nodule at the lingula concerning for primary bronchogenic carcinoma. If there is no prior outside imaging to confirm long-term stability would recommend further evaluation with CT-guided biopsy. 2. Stranding and wall thickening at the splenic flexure with nodular extension of soft tissue into the pericolonic fat and mild mesenteric lymphadenopathy which is highly concerning for primary colon cancer. Differential would include diverticulitis or focal colitis. Recommend colonoscopy for further evaluation. Labs Labs: Laboratory Results - last 24 hr 05/23/24 05/24/2405/24/25 05:18 06:00 09:58 WBC 10.0 RBC 3.64 L Hgb 8.5 L Hct 29.1 L MCV 79.9 L MCH 23.4 L MCHC 29.2 L RDW 15.7 H Plt Count 402 H MPV 10.2 Sodium 140 Potassium 4.2 Chloride 110 H Carbon Dioxide 21 L Anion Gap 9 BUN 8 Creatinine 0.59 L 0.58 L Estim Creat Clear Calc 76 78 Estimated GFR > 60 > 60 Glucose 98 Calcium 8.8 Magnesium 2.5 H Total Bilirubin 0.2 AST 28 ALT 18 Alkaline Phosphatase 147 H Total Protein 7.0 Albumin 3.7 Carcinoembryonic Ag 4.5 H Vancomycin Trough 12.4 Quality VTE Prophylaxis VTE prophylaxis: pharmacologic ordered
[2024-05-24] MEDS: LACTATED RINGERS 1,000 ML 150 ML IV CONT (13:40)
--- NOTE | 2024-05-24 14:37 | P.PNAN_ITS ---
Anes - Initial Pre Proc Eval Procedure: Operation Date: 05/24/24 15:15 Proposed Procedures p Colonoscopy - Derrick Sampson MD Date/Time: 05/24/24 14:37 Surgeon: Jamaica Green MD Pre Op Diagnosis: Sepsis Patient Data Age: 63 Gender: F Height: 1.52 m Weight: 79.7 kg Last Vital Signs Temp 36.4 C L 05/24/24 13:37 Pulse 96 05/24/24 13:37 Resp 16 05/24/24 13:37 BP 96/52 L 05/24/24 13:37 Pulse Ox 97 05/24/24 13:37 O2 Del Method Room Air 05/24/24 13:37 O2 Flow Rate 2 05/22/24 18:32 Allergies Allergy/AdvReac Type Severity Reaction Status Date / Time haloperidol AdvReac Mild Nausea and Verified 05/24/24 13:31 Vomiting morphine AdvReac the Verified 05/24/24 13:31 shakes Home Medications ?Medication ?Instructions ?Recorded ?Confirmed ?Type amitriptyline 75 mg tablet 75 mg PO HS 05/22/24 05/22/24 History apixaban 5 mg tablet (Eliquis) 5 mg PO BID 05/22/24 05/22/24 History sklpliuajh-rmswywwonwifp-hfsmwags 1 cap PO BID PRN pain 05/22/24 05/22/24 History 50 mg-300 mg-40 mg capsule (Fioricet) diphenhydramine-zinc acetate 2 1 applic topical BID PRN itching 05/22/24 05/22/24 History %-0.1 % topical cream (Wal-Dryl (diphenhydramine-Zn acetate)) gabapentin 600 mg tablet 600 mg PO TID 05/22/24 05/22/24 History hydroxyzine HCl 25 mg tablet 25 mg PO TID PRN itching 05/22/24 05/22/24 History lidocaine 4 % topical patch 2 patch topical DAILY 05/22/24 05/22/24 History (Aspercreme (lidocaine)) ondansetron 4 mg disintegrating 4 mg PO Q6H PRN nausea and vomiting 05/22/24 05/22/24 History tablet oxycodone 5 mg tablet 5 mg PO Q4H PRN pain 05/22/24 05/22/24 History pantoprazole 40 mg tablet,delayed 40 mg PO QAM 05/22/24 05/22/24 History release polyethylene glycol 3350 17 17 g PO DAILY PRN constipation 05/22/24 05/22/24 History gram/dose oral powder (Miralax) prochlorperazine maleate 10 mg 10 mg PO Q8H PRN nausea and 05/22/24 05/22/24 History tablet (Compazine) vomiting Laboratory Tests 05/24/24 05/24/24 06:00 09:58 WBC 10.0 K/mm3 (4.5-10.0) RBC 3.64 L M/mm3 (4.2-5.4) Hgb 8.5 L g/dL (12.0-15.0) Hct 29.1 L % (37.0-47.0) MCV 79.9 L fl (80-100) MCH 23.4 L pg (26-34) MCHC 29.2 L g/dl (32-36) RDW 15.7 H % (11.5-14.5) Plt Count 402 H k/mm3 (150-375) MPV 10.2 fl (7.4-10.4) Sodium 140 mmol/L (137-145) Potassium 4.2 mmol/L (3.4-5.0) Chloride 110 H mmol/L (98-107) Carbon Dioxide 21 L mmol/L (22-30) Anion Gap 9 mmol/L (4-12) BUN 8 mg/dL (7-17) Creatinine 0.59 L mg/dL 0.58 L mg/dL (0.7-1.0) (0.7-1.0) Estim Creat Clear Calc 76 ml/min 78 ml/min Estimated GFR > 60 > 60 (59 - ) (59 - ) Glucose 98 mg/dL (65-110) Calcium 8.8 mg/dL (8.4-10.2) Magnesium 2.5 H mg/dL (1.6-2.3) Total Bilirubin 0.2 mg/dL (0.2-1.3) AST 28 U/L (14-36) ALT 18 U/L (6-35) Alkaline Phosphatase 147 H U/L (38-126) Total Protein 7.0 g/dL (6.3-8.2) Albumin 3.7 g/dL (3.5-5.1) Vancomycin Trough 12.4 ug/mL (10.0-20.0) Patient hx anesthesia problems: none Family hx anesthesia problems: none Results Review: All pre-operative results and documents have been reviewed as part of the pre- operative evaluation. [facility] Past Medical History Medical History Leukocytosis Lung mass Upper abdominal pain Abnormal CT scan, colon History of pancreatitis Chronic anticoagulation Surgical History Surgical History History of hysterectomy History of cholecystectomy Family History Family History Sibling Carcinoma of colon Social History Social History Smoking status: Former smoker Tobacco type: cigarettes Alcohol intake: former Substance use: never Do You Feel Safe in your Home?: Yes Lack of Transportation: No Lack of Food: Never True Current Housing: I Have Housing Concerned About Future Housing: No Difficulty Paying Gas/Electric Bills: No Difficulty Paying for Meds: No Currently Unemployed: No Education: Decline to Answer Difficulty w/ Childcare or Family Care: No Spiritual care concerns: No Anes - Eval Final PreProcedure Day of Procedure 05/24/24 14:37 Patient weight: obese Heart: regular rate and rhythm Lungs: decreased breath sounds Airway: Mallampati scale class III Neurological: alert and oriented Last oral intake: >/= 8 hours ASA classification: III Emergent: no Anesthetic plan: proceed Anesthesia type and monitoring: general GIVS and standard monitoring Results Review: All pre-operative results and documents have been reviewed as part of the pre- operative evaluation. Informed Consent: The patient's anesthetic plan and its attendant risks and benefits were discussed with the patient/family/POA. Questions were solicited and answers provided to the satisfaction of the patient/family/POA.
--- NOTE | 2024-05-24 15:12 | WPDGIPROGNO ---
Progress Note: A&P Assessment and Plan (1) Colonic mass: Code(s): K63.89 - Other specified diseases of intestine Status: Acute Assessment and Plan: Patient has a near-occlusive left colonic mass, malignant aspect. She needs urgent surgery evaluation, consult placed. will keep the patient on clear liquids for now and hold Eliquis. Subjective Date/time seen: 05/24/24 15:12 Interval history: See colonoscopy report. Objective Data Vital Signs Vital Signs: Vital Signs - 24 hr 05/23/24 16:05 05/23/24 20:00 05/23/24 20:00 Temperature Pulse Rate 97 107 H Respiratory Rate Blood Pressure Pulse Oximetry Oxygen Delivery Room Air 05/23/24 20:55 05/24/24 00:00 05/24/24 00:00 Temperature 97.2 F L 97.6 F Pulse Rate 104 H 116 H 122 H Respiratory Rate 16 20 Blood Pressure 113/68 115/62 Pulse Oximetry 95 99 Oxygen Delivery 05/24/24 04:00 05/24/24 04:58 05/24/24 08:05 Temperature 97.5 F L Pulse Rate 119 H 115 H 107 H Respiratory Rate 18 Blood Pressure 117/58 L Pulse Oximetry 96 Oxygen Delivery 05/24/24 08:30 05/24/24 09:22 05/24/24 12:05 Temperature 97.6 F Pulse Rate 105 H 97 Respiratory Rate 18 Blood Pressure 117/60 Pulse Oximetry 94 Oxygen Delivery Room Air 05/24/24 13:37 05/24/24 15:06 Temperature 97.5 F L Pulse Rate 96 97 Respiratory Rate 16 20 Blood Pressure 96/52 L 117/70 Pulse Oximetry 97 97 Oxygen Delivery Room Air Room Air Intake/Output Intake/Output: Intake & Output 05/21/24 05/22/24 05/23/24 05/24/24 23:59 23:59 23:59 23:59 Intake Total 2750 2060 850 Output Total 1300 Balance 2750 760 850 Meds/Results Medications: Active Medications Generic Name Dose Route Start Last Admin Trade Name Freq PRN Reason Stop Dose Admin Acetaminophen/Butalbital/Caffeine 1 tab 05/22/24 23:48 Acetaminophen/Butalbital/Caffeine 325-50-40 Mg Tablet (Fioricet) PO BID PRN pain 4-6 Alprazolam 0.25 mg 05/23/24 09:46 05/23/24 18:26 Alprazolam (*Crx) 0.25 Mg Tablet PO 0.25 mg TID PRN Administration Anxiety Amitriptyline HCl 75 mg 05/23/24 21:00 05/23/24 21:39 Amitriptyline Hcl 25 Mg Tablet PO 75 mg HS GEOVANNI Administration Apixaban 5 mg 05/23/24 09:00 05/24/24 08:32 Apixaban 5 Mg Tablet PO Not Given Q12HR GEOVANNI Gabapentin 600 mg 05/23/24 09:00 05/24/24 11:33 Gabapentin 300 Mg Capsule PO Not Given TID GEOVANNI Piperacillin/Tazobactam/Dextrose 3.375 gm in 50 mls @ 100 mls/hr 05/23/24 00:00 05/24/24 11:56 Zosyn 3.375 Gm/Ns 50 Ml IVPB Infused Q6H GEOVANNI Infusion Vancomycin HCl 1,500 mg in 500 mls @ 250 mls/hr 05/24/24 08:00 05/24/24 10:31 Vancomycin 1,500 Mg/Ns 500 Ml IVPB Infused Q12H GEOVANNI Infusion Lactated Ringer's 1,000 mls @ 150 mls/hr 05/24/24 13:35 05/24/24 15:00 Lr - Lactated Ringers Iv IV CONT 150 mls/hr .Q6H40M GEOVANNI Infusion Lidocaine 2 patch 05/23/24 09:00 05/24/24 08:32 Lidocaine 5% Patch TRANSDERM 2 patch DAILY GEOVANNI Administration Ondansetron HCl 4 mg 05/22/24 23:26 05/24/24 11:24 Ondansetron Inj 4 Mg/2 Ml Vial IV PUSH 4 mg Q6H PRN Administration Nausea And Vomiting Oxycodone HCl 5 mg 05/22/24 23:37 05/24/24 08:40 Oxycodone Hcl (*Crx) 5 Mg Tab Ir PO 5 mg Q4H PRN Administration pain 7-10 Pantoprazole Sodium 40 mg 05/23/24 09:00 05/23/24 08:11 Pantoprazole 40 Mg Tablet PO 40 mg QAM GEOVANNI Administration Radiology Results: ITS Impressions Chest/Abdomen/Pelvis CTA 05/22/24 13:13 IMPRESSION: 1. 1.5 cm spiculated nodule at the lingula concerning for primary bronchogenic carcinoma. If there is no prior outside imaging to confirm long-term stability would recommend further evaluation with CT-guided biopsy. 2. Stranding and wall thickening at the splenic flexure with nodular extension of soft tissue into the pericolonic fat and mild mesenteric lymphadenopathy which is highly concerning for primary colon cancer. Differential would include diverticulitis or focal colitis. Recommend colonoscopy for further evaluation. Labs Labs: Laboratory Results - last 24 hr 05/24/24 05/24/24 06:00 09:58 WBC 10.0 RBC 3.64 L Hgb 8.5 L Hct 29.1 L MCV 79.9 L MCH 23.4 L MCHC 29.2 L RDW 15.7 H Plt Count 402 H MPV 10.2 Sodium 140 Potassium 4.2 Chloride 110 H Carbon Dioxide 21 L Anion Gap 9 BUN 8 Creatinine 0.59 L 0.58 L Estim Creat Clear Calc 76 78 Estimated GFR > 60 > 60 Glucose 98 Calcium 8.8 Magnesium 2.5 H Total Bilirubin 0.2 AST 28 ALT 18 Alkaline Phosphatase 147 H Total Protein 7.0 Albumin 3.7 Vancomycin Trough 12.4
[2024-05-24] MEDS: ALPRAZolam (*CRX) 0.25 MG TABLET PO ×2 (15:58→23:58)
[2024-05-24] MEDS: ACETAMINOPHEN/BUTALBITAL/CAFFEINE 325-50-40 MG TABLET (FIORICET) 1 TAB PO (15:58)
[2024-05-24] MEDS: GABAPENTIN 300 MG CAPSULE 600 MG PO (15:59)
[2024-05-24] MEDS: PANTOPRAZOLE 40 MG TABLET PO (15:59)
[2024-05-24] MEDS: AMITRIPTYLINE HCL 25 MG TABLET 75 MG PO (20:34)
[2024-05-25] VITALS (10 sets, daily range): BP systolic 97–124; BP diastolic 42–58; PULSE 65–110; RESP 17–18; TEMP 36.1–36.8; O2SAT 94–99
[2024-05-25] MEDS: ONDANSETRON INJ 4 MG/2 ML VIAL IV PUSH (01:36)
[2024-05-25] MEDS: oxyCODONE HCL (*CRX) 5 MG TAB IR PO ×3 (02:49→16:35)
[2024-05-25] MEDS: PIPERACILLN/TAZ 3.375GM/NS50ML 3.375 GM/50 ML BAG IVPB ×3 (05:12→18:11)
[2024-05-25 05:54] LABS: Basophils Percent Auto 0.3 % (0.2-1.2); Eosinophils Absolute Auto 0.3 K/mm3 (0-0.3); Eosinophils Percent Auto 4.2 % (0-4.4); Hematocrit 26.7 % (37.0-47.0); Hemoglobin 7.6 g/dL (12.0-15.0); Immature Granulocyte Absolute 0.02 K/mm3 (0.00-0.031); Immature Granulocyte Percent A 0.3 % (0-0.5); Lymphocytes Absolute Auto 2.02 K/mm3 (0.9-3.2); Lymphocytes Percent Auto 28.9 % (18.3-44.2); Mean Corpuscular HGB Conc 28.5 g/dl (32-36); Mean Corpuscular Hemoglobin 22.7 pg (26-34); Mean Corpuscular Volume 79.7 fl (80-100); Mean Platelet Volume 10.8 fl (7.4-10.4); Monocytes Absolute Auto 0.5 K/mm3 (0.1-0.6); Monocytes Percent Auto 6.7 % (2.6-8.5); Neutrophils Absolute Auto 4.2 K/mm3 (1.3-6.7); Neutrophils Percent Auto 59.6 % (45.5-73.1); Platelet Count Result 353 k/mm3 (150-375); Red Blood Count 3.35 M/mm3 (4.2-5.4); Red Cell Distribution Width 15.3 % (11.5-14.5)
[2024-05-25] MEDS: ACETAMINOPHEN/BUTALBITAL/CAFFEINE 325-50-40 MG TABLET (FIORICET) 1 TAB PO (05:55)
[2024-05-25 06:17] LABS: Alanine Aminotransferase 14 U/L (6-35); Albumin Level 3.3 g/dL (3.5-5.1); Alkaline Phosphatase 128 U/L (38-126); Anion Gap 11 mmol/L (4-12); Aspartate Amino Transferase 19 U/L (14-36); Bilirubin,Total 0.3 mg/dL (0.2-1.3); Blood Urea Nitrogen 6 mg/dL (7-17); Carbon Dioxide 20 mmol/L (22-30); Chloride 107 mmol/L (98-107); Estimated CRCL calculation 81 ml/min; Estimated Glomerular Filt Rate > 60; Glucose 90 mg/dL (65-110); Potassium 3.4 mmol/L (3.4-5.0); Sodium 138 mmol/L (137-145)
[2024-05-25 06:31] LABS: Anisocytosis 1+; Hypochromasia 1+; Platelet Clumps Present; Platelet Estimate Adequate (Adequate)
[2024-05-25 06:33] LABS: Large Platelets Present
[2024-05-25 06:34] LABS: Schistocytes None Seen
[2024-05-25] MEDS: GABAPENTIN 300 MG CAPSULE 600 MG PO ×3 (08:33→16:35)
[2024-05-25] MEDS: ALPRAZolam (*CRX) 0.25 MG TABLET PO (08:33)
[2024-05-25] MEDS: PANTOPRAZOLE 40 MG TABLET PO (08:34)
[2024-05-25] MEDS: LIDOCAINE 5% PATCH 2 PATCH TRANSDERM (08:34)
[2024-05-25] MEDS: VANCOMYCIN 1,500 MG/NS 500 ML 1,500 MG/500 ML BAG 250 MG IVPB (08:41)
--- NOTE | 2024-05-25 10:40 | P.PNIM_ITS ---
Progress Note: A&P Assessment and Plan (1) Colitis: Code(s): K52.9 - Noninfective gastroenteritis and colitis, unspecified Status: Acute Assessment and Plan: * Continue antibiotics of vancomycin and Zosyn for presumed possibility of infection in the colon as noted per CTA of abdomen and pelvis demonstrating a differential of possible diverticulitis or focal colitis aside from concern of potential primary colon cancer. * Continue Protonix * Monitor labs and trend vitals. * Colonscopy on 05/24/24 showed: near-occlusive left colonic mass, malignant aspect. She needs urgent surgery evaluation, consult placed. Keep the patient on clear liquids for now and hold Eliquis. (2) Colonic mass: Code(s): K63.89 - Other specified diseases of intestine Status: Acute Assessment and Plan: * As evidenced by CTA chest abdomen and pelvis. * Carcinoembryonic Ag level 4.5. * Colonoscopy 05/24/24 showed: near-occlusive left colonic mass, malignant aspect. She needs urgent surgery evaluation, consult placed. Keep the patient on clear liquids for now and hold Eliquis. * General surgery consult. Per surgery note today: colonoscopic report reviewed, likely c colon cancer, ? stage 4 given noted lung mass, exam cont to benign, +bowel fxn and currently sandeep clears, will get oncology to see re: poss neoadjuvant chemotherapy, will likely need PET and bx of lung mass * Oncology consult. (3) Cancer: Code(s): C80.1 - Malignant (primary) neoplasm, unspecified Status: Acute Assessment and Plan: * Awaiting General surgery and pulmonology consult, appreciate recommendations. * Patient had been previously made aware of the potential of a metastatic process during hospitalization at [facility] in March. She had not yet follo wed up. She has a reported Oncology appointment this coming . (4) Sepsis: Code(s): A41.9 - Sepsis, unspecified organism Status: Resolved Assessment and Plan: Upon presentation to emergency room Continue to monitor Early goal-directed therapy in progress 05/23/24: * Resolved. No longer meeting sepsis criteria. 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 HOLD for now for surgery consultation for colonic mass. (6) Lung mass: Code(s): R91.8 - Other nonspecific abnormal finding of lung field Status: Acute Assessment and Plan: * Pulmonology consult, appreciate recommendations. * Incidental left spiculated nodule 1.5 cm which has been present since Feb 2024, (+) PET at [facility] in [facility] She had a follow up visit scheduled for today at [facility] with out patient radiation oncology however missed appt due to having abdominal pain, admitted @ [facility] May 22. * Per Content Developer Dr. Ro plan: Main issue now is her near-obstructing colon mass; she has a lung mass that appears to be a lung primary. The prior CT scans in Jan and twice in Mar at [facility] did not describe a colon mass. The PET scan 03/24/24 at [facility] showed uptake in the lung nodule but not anywhere else, nothing in the colon. I have not looked at images from [facility]. It is unlikely that she has a colon primary malignancy with a metastatic lesion to the lung. I reviewed reports in 2 inches of medical records. I spoke with Tabitha Quan APN, shared abd-pelvis report from [facility] 04/08/24. (7) Headache: Code(s): R51.9 - Headache, unspecified Status: Acute Assessment and Plan: * Fiorcet 1 tab PO BID PRN (8) Nausea: Code(s): R11.0 - Nausea Status: Acute Assessment and Plan: * Phenergan 25 mg PO q 6 PRN. Subjective Date/time seen: 05/25/24 10:40 Interval history: Patient reports pain in head and RUQ is an 8 , constant, and aching. Patient denies chest pain, palpitations, vomiting, or dizziness. Patient reports nausea at times. Review of Systems Review of Systems: All systems reviewed & are unremarkable except as noted in HPI and below Exam Const: General: no acute distress and uncomfortable Resp: Effort & Inspection: normal respiratory effort Auscultation: clear to auscultation bilaterally Cardio: Rate: regular rate Rhythm: regular rhythm GI: GI Palp: Yes Soft to palpation and Yes Tenderness to palpation present (GI) (RUQ) Auscultation: normal bowel sounds Neuro: Speech: normal speech Extrem: General: no pedal edema Psych: Mental Status: mental status grossly normal Affect: normal affect Objective Data Vital Signs Vital Signs: Vital Signs - 24 hr 05/24/24 12:05 05/24/24 13:37 05/24/24 15:06 Temperature 97.5 F L Pulse Rate 97 96 97 Respiratory Rate 16 20 Blood Pressure 96/52 L 117/70 Pulse Oximetry 97 97 Oxygen Delivery Room Air Room Air Fraction of Inspired Oxygen 05/24/24 15:16 05/24/24 15:26 05/24/24 15:49 Temperature 96.9 F L Pulse Rate 94 96 60 Respiratory Rate 22 H 18 18 Blood Pressure 108/67 106/58 L 111/43 L Pulse Oximetry 97 97 96 Oxygen Delivery Room Air Room Air Fraction of Inspired Oxygen 05/24/24 16:04 05/24/24 20:00 05/24/24 20:00 Temperature 98.6 F Pulse Rate 95 91 Respiratory Rate 20 Blood Pressure 102/57 L Pulse Oximetry 96 Oxygen Delivery Room Air Fraction of Inspired Oxygen 05/24/24 20:00 05/24/24 20:14 05/25/24 00:00 Temperature Pulse Rate 97 95 Respiratory Rate Blood Pressure Pulse Oximetry 94 Oxygen Delivery Room Air Fraction of Inspired Oxygen 21 05/25/24 00:00 05/25/24 04:00 05/25/24 04:00 Temperature 98.2 F 97.7 F Pulse Rate 92 90 92 Respiratory Rate 18 18 Blood Pressure 97/58 L 124/42 L Pulse Oximetry 94 97 Oxygen Delivery Fraction of Inspired Oxygen 05/25/24 08:05 05/25/24 08:40 05/25/24 09:30 Temperature 98.2 F Pulse Rate 84 65 Respiratory Rate 18 Blood Pressure 109/52 L Pulse Oximetry 95 Oxygen Delivery Room Air Fraction of Inspired Oxygen Intake/Output Intake/Output: Intake & Output 05/22/24 05/23/24 05/24/24 05/25/24 23:59 23:59 23:59 23:59 Intake Total 2750 2060 1980 350 Output Total 3468 044 0371 Balance 2750 760 1580 -700 Meds/Results Medications: Active Medications Generic Name Dose Route Start Last Admin Trade Name Freq PRN Reason Stop Dose Admin Acetaminophen/Butalbital/Caffeine 1 tab 05/22/24 23:48 05/25/24 05:55 Acetaminophen/Butalbital/Caffeine 325-50-40 Mg Tablet (Fioricet) PO 1 tab BID PRN Administration pain 4-6 Alprazolam 0.25 mg 05/23/24 09:46 05/25/24 08:33 Alprazolam (*Crx) 0.25 Mg Tablet PO 0.25 mg TID PRN Administration Anxiety Amitriptyline HCl 75 mg 05/23/24 21:00 05/24/24 20:34 Amitriptyline Hcl 25 Mg Tablet PO 75 mg HS GEOVANNI Administration Gabapentin 600 mg 05/23/24 09:00 05/25/24 08:33 Gabapentin 300 Mg Capsule PO 600 mg TID GEOVANNI Administration Piperacillin/Tazobactam/Dextrose 3.375 gm in 50 mls @ 100 mls/hr 05/23/24 00:00 05/25/24 05:42 Zosyn 3.375 Gm/Ns 50 Ml IVPB Infused Q6H GEOVANNI Infusion Lidocaine 2 patch 05/23/24 09:00 05/25/24 08:34 Lidocaine 5% Patch TRANSDERM 2 patch DAILY GEOVANNI Administration Ondansetron HCl 4 mg 05/22/24 23:26 05/25/24 01:36 Ondansetron Inj 4 Mg/2 Ml Vial IV PUSH 4 mg Q6H PRN Administration Nausea And Vomiting Oxycodone HCl 5 mg 05/22/24 23:37 05/25/24 08:33 Oxycodone Hcl (*Crx) 5 Mg Tab Ir PO 5 mg Q4H PRN Administration pain 7-10 Pantoprazole Sodium 40 mg 05/23/24 09:00 05/25/24 08:34 Pantoprazole 40 Mg Tablet PO 40 mg QAM GEOVANNI Administration Radiology Results: ITS Impressions Chest/Abdomen/Pelvis CTA 05/22/24 13:13 IMPRESSION: 1. 1.5 cm spiculated nodule at the lingula concerning for primary bronchogenic carcinoma. If there is no prior outside imaging to confirm long-term stability would recommend further evaluation with CT-guided biopsy. 2. Stranding and wall thickening at the splenic flexure with nodular extension of soft tissue into the pericolonic fat and mild mesenteric lymphadenopathy which is highly concerning for primary colon cancer. Differential would include diverticulitis or focal colitis. Recommend colonoscopy for further evaluation. Labs Labs: Laboratory Results - last 24 hr 05/25/24 05:40 WBC 7.0 RBC 3.35 L Hgb 7.6 L Hct 26.7 L MCV 79.7 L MCH 22.7 L MCHC 28.5 L RDW 15.3 H Plt Count 353 MPV 10.8 H Immature Gran % (Auto) 0.3 Neut % (Auto) 59.6 Lymph % (Auto) 28.9 [place] % (Auto) 6.7 Eos % (Auto) 4.2 Baso % (Auto) 0.3 Lymph # (Auto) 2.02 [place] # (Auto) 0.5 Eos # (Auto) 0.3 Baso # (Auto) 0.0 Abs Immat Gran (auto) 0.02 Absolute Neuts (auto) 4.2 Absolute Nucleated RBC 0.000 Nucleated RBC % 0.0 Platelet Estimate Adequate Clumped Platelets Present Large Platelets Present Hypochromasia 1+ Anisocytosis 1+ Schistocytes None seen Sodium 138 Potassium 3.4 Chloride 107 Carbon Dioxide 20 L Anion Gap 11 BUN 6 L Creatinine 0.55 L Estim Creat Clear Calc 81 Estimated GFR > 60 Glucose 90 Calcium 8.0 L Total Bilirubin 0.3 AST 19 ALT 14 Alkaline Phosphatase 128 H Total Protein 7.0 Albumin 3.3 L Quality VTE Prophylaxis VTE prophylaxis: pharmacologic ordered
[2024-05-25] MEDS: POTASSIUM CHLORIDE 20 MEQ ER TABLET 40 MEQ PO (12:17)
[2024-05-25] MEDS: PROMETHAZINE HCL 25 MG TABLET PO ×2 (12:18→21:00)
--- NOTE | 2024-05-25 12:32 | PM.PNGS ---
Progress Note: A&P Assessment and Plan (1) Colonic mass: Code(s): K63.89 - Other specified diseases of intestine Status: Acute Assessment and Plan: colonoscopic report reviewed, likely c colon cancer, ? stage 4 given noted lung mass, exam cont to benign, +bowel fxn and currently sandeep clears, will get oncology to see re: poss neoadjuvant chemotherapy, will likely need PET and bx of lung mass (2) Lung mass: Code(s): R91.8 - Other nonspecific abnormal finding of lung field Status: Acute Assessment and Plan: likely need biopsy, await oncology input Subjective Subjective Date/Time Seen: 05/25/24 12:32 Interval history: feels ok, still some mild upper abd pain, +bowel fxn, sandeep clears Review of Systems Review of Systems: All systems reviewed & are unremarkable except as noted in HPI and below Exam Const: General: cooperative, comfortable and no acute distress Resp: Auscultation: clear to auscultation bilaterally Cardio: Rate: regular rate Rhythm: regular rhythm GI: Inspection: normal to inspection and non-distended GI Palp: No abdominal tenderness, Yes Soft to palpation, No Tenderness to palpation present (GI), No Guarding due to palpation present (GI) and No Rigid due to palpation Objective Data Vital Signs Vital Signs: Vital Signs - 24 hr 05/24/24 13:37 05/24/24 15:06 05/24/24 15:16 Temperature 36.4 C L Pulse Rate 96 97 94 Respiratory Rate 16 20 22 H Blood Pressure 96/52 L 117/70 108/67 Pulse Oximetry 97 97 97 Oxygen Delivery Room Air Room Air Room Air Fraction of Inspired Oxygen 05/24/24 15:26 05/24/24 15:49 05/24/24 16:04 Temperature 36.1 C L Pulse Rate 96 60 95 Respiratory Rate 18 18 Blood Pressure 106/58 L 111/43 L Pulse Oximetry 97 96 Oxygen Delivery Room Air Fraction of Inspired Oxygen 05/24/24 20:00 05/24/24 20:00 05/24/24 20:00 Temperature 37.0 C Pulse Rate 91 97 Respiratory Rate 20 Blood Pressure 102/57 L Pulse Oximetry 96 Oxygen Delivery Room Air Fraction of Inspired Oxygen 05/24/24 20:14 05/25/24 00:00 05/25/24 00:00 Temperature 36.8 C Pulse Rate 95 92 Respiratory Rate 18 Blood Pressure 97/58 L Pulse Oximetry 94 94 Oxygen Delivery Room Air Fraction of Inspired Oxygen 21 05/25/24 04:00 05/25/24 04:00 05/25/24 08:05 Temperature 36.5 C Pulse Rate 90 92 84 Respiratory Rate 18 Blood Pressure 124/42 L Pulse Oximetry 97 Oxygen Delivery Fraction of Inspired Oxygen 05/25/24 08:40 05/25/24 09:30 05/25/24 12:00 Temperature 36.8 C 36.1 C L Pulse Rate 65 100 Respiratory Rate 18 18 Blood Pressure 109/52 L 98/58 L Pulse Oximetry 95 99 Oxygen Delivery Room Air Fraction of Inspired Oxygen Intake/Output Intake/Output: Intake & Output 05/22/24 05/23/24 05/24/24 05/25/24 23:59 23:59 23:59 23:59 Intake Total 2750 2060 1980 710 Output Total 0753 762 8224 Balance 2750 760 1580 -640 Meds/Results Medications: Active Medications Generic Name Dose Route Start Last Admin Trade Name Freq PRN Reason Stop Dose Admin Acetaminophen/Butalbital/Caffeine 1 tab 05/22/24 23:48 05/25/24 05:55 Acetaminophen/Butalbital/Caffeine 325-50-40 Mg Tablet (Fioricet) PO 1 tab BID PRN Administration pain 4-6 Alprazolam 0.25 mg 05/23/24 09:46 05/25/24 08:33 Alprazolam (*Crx) 0.25 Mg Tablet PO 0.25 mg TID PRN Administration Anxiety Amitriptyline HCl 75 mg 05/23/24 21:00 05/24/24 20:34 Amitriptyline Hcl 25 Mg Tablet PO 75 mg HS GEOVANNI Administration Gabapentin 600 mg 05/23/24 09:00 05/25/24 12:17 Gabapentin 300 Mg Capsule PO 600 mg TID GEOVANNI Administration Piperacillin/Tazobactam/Dextrose 3.375 gm in 50 mls @ 100 mls/hr 05/23/24 00:00 05/25/24 12:17 Zosyn 3.375 Gm/Ns 50 Ml IVPB 100 mls/hr Q6H GEOVANNI Administration Lidocaine 2 patch 05/23/24 09:00 05/25/24 08:34 Lidocaine 5% Patch TRANSDERM 2 patch DAILY GEOVANNI Administration Oxycodone HCl 5 mg 05/22/24 23:37 05/25/24 08:33 Oxycodone Hcl (*Crx) 5 Mg Tab Ir PO 5 mg Q4H PRN Administration pain 7-10 Pantoprazole Sodium 40 mg 05/23/24 09:00 05/25/24 08:34 Pantoprazole 40 Mg Tablet PO 40 mg QAM GEOVANNI Administration Promethazine HCl 25 mg 05/25/24 10:41 05/25/24 12:18 Promethazine Hcl 25 Mg Tablet PO 25 mg Q6H PRN Administration Nausea And Vomiting Radiology Results: ITS Impressions Chest/Abdomen/Pelvis CTA 05/22/24 13:13 IMPRESSION: 1. 1.5 cm spiculated nodule at the lingula concerning for primary bronchogenic carcinoma. If there is no prior outside imaging to confirm long-term stability would recommend further evaluation with CT-guided biopsy. 2. Stranding and wall thickening at the splenic flexure with nodular extension of soft tissue into the pericolonic fat and mild mesenteric lymphadenopathy which is highly concerning for primary colon cancer. Differential would include diverticulitis or focal colitis. Recommend colonoscopy for further evaluation. Labs Labs: Laboratory Results - last 24 hr 05/25/24 05:40 WBC 7.0 RBC 3.35 L Hgb 7.6 L Hct 26.7 L MCV 79.7 L MCH 22.7 L MCHC 28.5 L RDW 15.3 H Plt Count 353 MPV 10.8 H Immature Gran % (Auto) 0.3 Neut % (Auto) 59.6 Lymph % (Auto) 28.9 [place] % (Auto) 6.7 Eos % (Auto) 4.2 Baso % (Auto) 0.3 Lymph # (Auto) 2.02 [place] # (Auto) 0.5 Eos # (Auto) 0.3 Baso # (Auto) 0.0 Abs Immat Gran (auto) 0.02 Absolute Neuts (auto) 4.2 Absolute Nucleated RBC 0.000 Nucleated RBC % 0.0 Platelet Estimate Adequate Clumped Platelets Present Large Platelets Present Hypochromasia 1+ Anisocytosis 1+ Schistocytes None seen Sodium 138 Potassium 3.4 Chloride 107 Carbon Dioxide 20 L Anion Gap 11 BUN 6 L Creatinine 0.55 L Estim Creat Clear Calc 81 Estimated GFR > 60 Glucose 90 Calcium 8.0 L Total Bilirubin 0.3 AST 19 ALT 14 Alkaline Phosphatase 128 H Total Protein 7.0 Albumin 3.3 L
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
--- NOTE | 2024-05-25 18:22 | P.CONONC_ITS ---
Assessment and Plan Assessment and plan (1) Lung mass: Code(s): R91.8 - Other nonspecific abnormal finding of lung field Status: Acute Assessment and Plan: Finding reviewed and also discussed with Dr. Coates. Patient recent CT scan and PET scan done at [facility] showed no evidence of colon mass and there was a concern that colon finding might just be colitis. With this concern decision was made to proceed with CT-guided biopsy of the lung mass pending pathology from sigmoidoscopy. I will see her back in my office to discuss final pathology and further management. (2) Colonic mass: Code(s): K63.89 - Other specified diseases of intestine Status: Acute Assessment and Plan: CT scan reviewed. Sigmoidoscopy showed malignant appearing colon mass and the descending colon. Pathology is pending. CEA slightly elevated at 4.5. Further management will be based on the pathology report from the sigmoidoscopy. I have provided her my office information for follow-up. Plan Anemia. I will check iron studies and vitamin B12 level. I will start her on IV iron based on the results. HPI Data of Consult Date/Time: 05/25/24 18:22 Requesting Physician: Jamaica Green MD Primary Care Provider: Luc Mari, Consult Narrative Narrative: Marily Cantu is a 63 year old female with history of chronic pain and without any previous history of malignancy came into the hospital with abdominal pain for 2 weeks to. She denies any nausea vomiting. Denies any melena hematochezia. No diarrhea and constipation. CT scan chest abdomen pelvis showed 1.5 cm nodule at the lingula concerning for primary bronchogenic carcinoma along with stranding and wall thickening at the splenic flexure with nodular extension of the soft tissue into the pericolonic fat and mild mesenteric lymphadenopathy suspicious for colon cancer but differential diagnosis include diverticulitis or focal colitis. Patient has sigmoidoscopy done that showed malignant appearing colonic mass at the descending colon and pathology is pending. Review of Systems 2 Review of Systems: Review of system as per HPI otherwise negative [facility] Past Medical History Medical History Leukocytosis Lung mass Upper abdominal pain Abnormal CT scan, colon History of pancreatitis Chronic anticoagulation Surgical History Surgical History History of hysterectomy History of cholecystectomy Family History Family History Sibling Carcinoma of colon Social History Social History Smoking status: Former smoker Tobacco type: cigarettes Alcohol intake: former Substance use: never Do You Feel Safe in your Home?: Yes Lack of Transportation: No Lack of Food: Never True Current Housing: I Have Housing Concerned About Future Housing: No Difficulty Paying Gas/Electric Bills: No Difficulty Paying for Meds: No Currently Unemployed: No Education: Decline to Answer Difficulty w/ Childcare or Family Care: No Spiritual care concerns: No Meds Home Medications and Allergies Home Medications ?Medication ?Instructions ?Recorded ?Confirmed ?Type amitriptyline 75 mg tablet 75 mg PO HS 05/22/24 05/22/24 History apixaban 5 mg tablet (Eliquis) 5 mg PO BID 05/22/24 05/22/24 History fiudvxdnvu-wmbzombxmzvlq-afsjaxid 1 cap PO BID PRN pain 05/22/24 05/22/24 History 50 mg-300 mg-40 mg capsule (Fioricet) diphenhydramine-zinc acetate 2 1 applic topical BID PRN itching 05/22/24 05/22/24 History %-0.1 % topical cream (Wal-Dryl (diphenhydramine-Zn acetate)) gabapentin 600 mg tablet 600 mg PO TID 05/22/24 05/22/24 History hydroxyzine HCl 25 mg tablet 25 mg PO TID PRN itching 05/22/24 05/22/24 History lidocaine 4 % topical patch 2 patch topical DAILY 05/22/24 05/22/24 History (Aspercreme (lidocaine)) ondansetron 4 mg disintegrating 4 mg PO Q6H PRN nausea and vomiting 05/22/24 05/22/24 History tablet oxycodone 5 mg tablet 5 mg PO Q4H PRN pain 05/22/24 05/22/24 History pantoprazole 40 mg tablet,delayed 40 mg PO QAM 05/22/24 05/22/24 History release polyethylene glycol 3350 17 17 g PO DAILY PRN constipation 05/22/24 05/22/24 History gram/dose oral powder (Miralax) prochlorperazine maleate 10 mg 10 mg PO Q8H PRN nausea and 05/22/24 05/22/24 History tablet (Compazine) vomiting Allergies Allergy/AdvReac Type Severity Reaction Status Date / Time haloperidol AdvReac Mild Nausea and Verified 05/24/24 13:31 Vomiting morphine AdvReac the Verified 05/24/24 13:31 shakes Vital Signs Vital Signs - 24 hr 05/24/24 20:00 05/24/24 20:00 05/24/24 20:00 Temperature 37.0 C Pulse Rate 91 97 Respiratory Rate 20 Blood Pressure 102/57 L Pulse Oximetry 96 Oxygen Delivery Room Air Fraction of Inspired Oxygen 05/24/24 20:14 05/25/24 00:00 05/25/24 00:00 Temperature 36.8 C Pulse Rate 95 92 Respiratory Rate 18 Blood Pressure 97/58 L Pulse Oximetry 94 94 Oxygen Delivery Room Air Fraction of Inspired Oxygen 21 05/25/24 04:00 05/25/24 04:00 05/25/24 08:05 Temperature 36.5 C Pulse Rate 90 92 84 Respiratory Rate 18 Blood Pressure 124/42 L Pulse Oximetry 97 Oxygen Delivery Fraction of Inspired Oxygen 05/25/24 08:40 05/25/24 09:30 05/25/24 12:00 Temperature 36.8 C 36.1 C L Pulse Rate 65 100 Respiratory Rate 18 18 Blood Pressure 109/52 L 98/58 L Pulse Oximetry 95 99 Oxygen Delivery Room Air Fraction of Inspired Oxygen 05/25/24 12:05 05/25/24 12:23 05/25/24 12:54 Temperature Pulse Rate 90 Respiratory Rate Blood Pressure Pulse Oximetry Oxygen Delivery Room Air Room Air Fraction of Inspired Oxygen 05/25/24 16:00 05/25/24 16:05 Temperature 36.8 C Pulse Rate 99 90 Respiratory Rate 17 Blood Pressure 115/54 L Pulse Oximetry 98 Oxygen Delivery Fraction of Inspired Oxygen Exam 2 Narrative: Lungs are clear to auscultation bilaterally Regular rate rhythm no murmur Abdomen slightly tender bowel sounds are positive Extremities no edema Results Labs 05/25/24 05:40 05/25/24 05:40 Labs: Short CBC 05/25/24 Range/Units 05:40 WBC 7.0 (4.5-10.0) K/mm3 Hgb 7.6 L (12.0-15.0) g/dL Hct 26.7 L (37.0-47.0) % Plt Count 353 (150-375) k/mm3 BMP 05/25/24 05:40 Sodium 138 Potassium 3.4 Chloride 107 Carbon Dioxide 20 L BUN 6 L Creatinine 0.55 L Glucose 90 Calcium 8.0 L Liver Function 05/25/24 Range/Units 05:40 Total Bilirubin 0.3 (0.2-1.3) mg/dL AST 19 (14-36) U/L ALT 14 (6-35) U/L Alkaline Phosphatase 128 H (38-126) U/L Albumin 3.3 L (3.5-5.1) g/dL
[2024-05-25] MEDS: AMITRIPTYLINE HCL 25 MG TABLET 75 MG PO (21:00)
[2024-05-25 21:33] LABS: Iron 20 ug/dL (37-170)
[2024-05-25 21:42] LABS: Percent Iron Saturation 6 % (20-50)
[2024-05-25 22:40] LABS: Folic Acid 12.9 ng/mL (2.76->20)
[2024-05-26] VITALS (13 sets, daily range): BP systolic 97–123; BP diastolic 46–83; PULSE 89–111; RESP 12–20; TEMP 36.2–37.1; O2SAT 94–100
[2024-05-26] MEDS: PIPERACILLN/TAZ 3.375GM/NS50ML 3.375 GM/50 ML BAG IVPB ×5 (00:21→23:19)
[2024-05-26] MEDS: ACETAMINOPHEN/BUTALBITAL/CAFFEINE 325-50-40 MG TABLET (FIORICET) 1 TAB PO ×2 (03:45→17:37)
[2024-05-26 06:31] LABS: Basophils Percent Auto 0.2 % (0.2-1.2); Eosinophils Absolute Auto 0.3 K/mm3 (0-0.3); Eosinophils Percent Auto 3.5 % (0-4.4); Hematocrit 25.9 % (37.0-47.0); Hemoglobin 7.4 g/dL (12.0-15.0); Immature Granulocyte Absolute 0.03 K/mm3 (0.00-0.031); Immature Granulocyte Percent A 0.4 % (0-0.5); Lymphocytes Absolute Auto 2.67 K/mm3 (0.9-3.2); Mean Corpuscular HGB Conc 28.6 g/dl (32-36); Mean Corpuscular Hemoglobin 22.6 pg (26-34); Mean Platelet Volume 11.1 fl (7.4-10.4); Monocytes Absolute Auto 0.5 K/mm3 (0.1-0.6); Monocytes Percent Auto 6.4 % (2.6-8.5); Neutrophils Absolute Auto 4.6 K/mm3 (1.3-6.7); Neutrophils Percent Auto 56.5 % (45.5-73.1); Platelet Count Result 373 k/mm3 (150-375); Red Blood Count 3.28 M/mm3 (4.2-5.4); Red Cell Distribution Width 15.1 % (11.5-14.5); White Blood Count 8.1 K/mm3 (4.5-10.0)
[2024-05-26 07:03] LABS: Anisocytosis 1+; Hypochromasia 1+; Large Platelets Present; Platelet Estimate Adequate (Adequate); Schistocytes None Seen
[2024-05-26 08:02] LABS: Alanine Aminotransferase 11 U/L (6-35); Albumin Level 3.2 g/dL (3.5-5.1); Alkaline Phosphatase 120 U/L (38-126); Anion Gap 7 mmol/L (4-12); Aspartate Amino Transferase 21 U/L (14-36); Bilirubin,Total 0.3 mg/dL (0.2-1.3); Blood Urea Nitrogen 10 mg/dL (7-17); Calcium 9.1 mg/dL (8.4-10.2); Carbon Dioxide 23 mmol/L (22-30); Chloride 109 mmol/L (98-107); Estimated CRCL calculation 75 ml/min; Estimated Glomerular Filt Rate > 60; Glucose 92 mg/dL (65-110); Potassium 4.8 mmol/L (3.4-5.0); Sodium 139 mmol/L (137-145)
[2024-05-26] MEDS: PANTOPRAZOLE 40 MG TABLET PO (10:02)
[2024-05-26] MEDS: ALPRAZolam (*CRX) 0.25 MG TABLET PO ×2 (10:02→13:16)
[2024-05-26] MEDS: GABAPENTIN 300 MG CAPSULE 600 MG PO ×3 (10:02→17:34)
[2024-05-26] MEDS: oxyCODONE HCL (*CRX) 5 MG TAB IR PO ×2 (10:02→17:34)
[2024-05-26] MEDS: LIDOCAINE 5% PATCH 2 PATCH TRANSDERM (10:06)
--- NOTE | 2024-05-26 11:00 | P.PNGS_ITS ---
Progress Note: A&P Assessment and Plan (1) Colonic mass: Code(s): K63.89 - Other specified diseases of intestine Status: Acute Assessment and Plan: await path, exam benign, NPO now for lung bx, ok to resume diet p procedure (2) Lung mass: Code(s): R91.8 - Other nonspecific abnormal finding of lung field Status: Acute Assessment and Plan: CT guided bx today Subjective Subjective Date/Time Seen: 05/26/24 11:00 Interval history: feels ok, still some mild RUQ pain, sandeep clears yest, +bowel fxn Review of Systems Review of Systems: All systems reviewed & are unremarkable except as noted in HPI and below Exam Const: General: cooperative, comfortable and no acute distress Resp: Auscultation: clear to auscultation bilaterally Cardio: Rate: regular rate Rhythm: regular rhythm GI: Inspection: normal to inspection and non-distended GI Palp: Yes abdominal tenderness, Yes Soft to palpation, No Guarding due to palpation present (GI) and No Rigid due to palpation Objective Data Vital Signs Vital Signs: Vital Signs - 24 hr 05/25/24 12:00 05/25/24 12:05 05/25/24 12:23 Temperature 36.1 C L Pulse Rate 100 90 Respiratory Rate 18 Blood Pressure 98/58 L Pulse Oximetry 99 Oxygen Delivery Room Air 05/25/24 12:54 05/25/24 16:00 05/25/24 16:05 Temperature 36.8 C Pulse Rate 99 90 Respiratory Rate 17 Blood Pressure 115/54 L Pulse Oximetry 98 Oxygen Delivery Room Air 05/25/24 19:59 05/25/24 20:00 05/26/24 00:00 Temperature 36.6 C Pulse Rate 108 H 110 H 111 H Respiratory Rate 18 Blood Pressure 116/46 L Pulse Oximetry 99 Oxygen Delivery 05/26/24 04:00 05/26/24 05:23 Temperature 36.2 C L Pulse Rate 98 100 Respiratory Rate 20 Blood Pressure 117/54 L Pulse Oximetry 100 Oxygen Delivery Intake/Output Intake/Output: Intake & Output 05/23/24 05/24/24 05/25/24 05/26/24 23:59 23:59 23:59 23:59 Intake Total 2060 1980 1670 600 Output Total 7640 104 4655 1400 Balance 760 1580 -1680 -800 Meds/Results Medications: Active Medications Generic Name Dose Route Start Last Admin Trade Name Freq PRN Reason Stop Dose Admin Acetaminophen/Butalbital/Caffeine 1 tab 05/22/24 23:48 05/26/24 03:45 Acetaminophen/Butalbital/Caffeine 325-50-40 Mg Tablet (Fioricet) PO 1 tab BID PRN Administration pain 4-6 Alprazolam 0.25 mg 05/23/24 09:46 05/26/24 10:02 Alprazolam (*Crx) 0.25 Mg Tablet PO 0.25 mg TID PRN Administration Anxiety Amitriptyline HCl 75 mg 05/23/24 21:00 05/25/24 21:00 Amitriptyline Hcl 25 Mg Tablet PO 75 mg HS GEOVANNI Administration Gabapentin 600 mg 05/23/24 09:00 05/26/24 10:02 Gabapentin 300 Mg Capsule PO 600 mg TID GEOVANNI Administration Piperacillin/Tazobactam/Dextrose 3.375 gm in 50 mls @ 100 mls/hr 05/23/24 00:00 05/26/24 05:20 Zosyn 3.375 Gm/Ns 50 Ml IVPB 100 mls/hr Q6H GEOVANNI Administration Lidocaine 2 patch 05/23/24 09:00 05/26/24 10:06 Lidocaine 5% Patch TRANSDERM 1 patch DAILY GEOVANNI Administration Oxycodone HCl 5 mg 05/22/24 23:37 05/26/24 10:02 Oxycodone Hcl (*Crx) 5 Mg Tab Ir PO 5 mg Q4H PRN Administration pain 7-10 Pantoprazole Sodium 40 mg 05/23/24 09:00 05/26/24 10:02 Pantoprazole 40 Mg Tablet PO 40 mg QAM GEOVANNI Administration Promethazine HCl 25 mg 05/25/24 10:41 05/25/24 21:00 Promethazine Hcl 25 Mg Tablet PO 25 mg Q6H PRN Administration Nausea And Vomiting Radiology Results: ITS Impressions Chest/Abdomen/Pelvis CTA 05/22/24 13:13 IMPRESSION: 1. 1.5 cm spiculated nodule at the lingula concerning for primary bronchogenic carcinoma. If there is no prior outside imaging to confirm long-term stability would recommend further evaluation with CT-guided biopsy. 2. Stranding and wall thickening at the splenic flexure with nodular extension of soft tissue into the pericolonic fat and mild mesenteric lymphadenopathy which is highly concerning for primary colon cancer. Differential would include diverticulitis or focal colitis. Recommend colonoscopy for further evaluation. Labs Labs: Laboratory Results - last 24 hr 05/25/24 05/25/24 05/26/24 05:36 05:40 06:18 WBC 8.1 RBC 3.28 L Hgb 7.4 L Hct 25.9 L MCV 79.0 L MCH 22.6 L MCHC 28.6 L RDW 15.1 H Plt Count 373 MPV 11.1 H Immature Gran % (Auto) 0.4 Neut % (Auto) 56.5 Lymph % (Auto) 33.0 [place] % (Auto) 6.4 Eos % (Auto) 3.5 Baso % (Auto) 0.2 Lymph # (Auto) 2.67 [place] # (Auto) 0.5 Eos # (Auto) 0.3 Baso # (Auto) 0.0 Abs Immat Gran (auto) 0.03 Absolute Neuts (auto) 4.6 Absolute Nucleated RBC 0.000 Nucleated RBC % 0.0 Platelet Estimate Adequate Large Platelets Present Hypochromasia 1+ Anisocytosis 1+ Schistocytes None seen Sodium Potassium Chloride Carbon Dioxide Anion Gap BUN Creatinine Estim Creat Clear Calc Estimated GFR Glucose Calcium Iron 20 L TIBC 328 % Saturation 6 L Ferritin 11.90 Total Bilirubin AST ALT Alkaline Phosphatase Total Protein Albumin Vitamin B12 326.0 Folate 12.9 05/26/24 07:24 WBC RBC Hgb Hct MCV MCH MCHC RDW Plt Count MPV Immature Gran % (Auto) Neut % (Auto) Lymph % (Auto) [place] % (Auto) Eos % (Auto) Baso % (Auto) Lymph # (Auto) [place] # (Auto) Eos # (Auto) Baso # (Auto) Abs Immat Gran (auto) Absolute Neuts (auto) Absolute Nucleated RBC Nucleated RBC % Platelet Estimate Large Platelets Hypochromasia Anisocytosis Schistocytes Sodium 139 Potassium 4.8 Chloride 109 H Carbon Dioxide 23 Anion Gap 7 BUN 10 Creatinine 0.60 L Estim Creat Clear Calc 75 Estimated GFR > 60 Glucose 92 Calcium 9.1 Iron TIBC % Saturation Ferritin Total Bilirubin 0.3 AST 21 ALT 11 Alkaline Phosphatase 120 Total Protein 6.0 L Albumin 3.2 L Vitamin B12 Folate
--- NOTE | 2024-05-26 11:56 | P.PNIM_ITS ---
Progress Note: A&P Assessment and Plan (1) Colitis: Code(s): K52.9 - Noninfective gastroenteritis and colitis, unspecified Status: Acute Assessment and Plan: * Continue antibiotics of vancomycin and Zosyn for presumed possibility of infection in the colon as noted per CTA of abdomen and pelvis demonstrating a differential of possible diverticulitis or focal colitis aside from concern of potential primary colon cancer. * Continue Protonix * Monitor labs and trend vitals. * Colonscopy on 05/24/24 showed: near-occlusive left colonic mass, malignant aspect. She needs urgent surgery evaluation, consult placed. Keep the patient on clear liquids for now and hold Eliquis. (2) Colonic mass: Code(s): K63.89 - Other specified diseases of intestine Status: Acute Assessment and Plan: * As evidenced by CTA chest abdomen and pelvis. * Carcinoembryonic Ag level 4.5. * Colonoscopy 05/24/24 showed: near-occlusive left colonic mass, malignant aspect. She needs urgent surgery evaluation, consult placed. Keep the patient on clear liquids for now and hold Eliquis. * General surgery consult. Per surgery note today: colonoscopic report reviewed, likely c colon cancer, ? stage 4 given noted lung mass, exam cont to benign, +bowel fxn and currently sandeep clears, will get oncology to see re: poss neoadjuvant chemotherapy, will likely need PET and bx of lung mass * Oncology consult, appreciate recommendations. * Per oncology: CT scan reviewed. Sigmoidoscopy showed malignant appearing colon mass and the descending colon. Pathology is pending. CEA slightly elevated at 4.5. Further management will be based on the pathology report from the sigmoidoscopy. Decision was made to proceed with CT-guided biopsy of the lung mass pending pathology from sigmoidoscopy. I have provided her my office information for follow-up. (3) Cancer: Code(s): C80.1 - Malignant (primary) neoplasm, unspecified Status: Acute Assessment and Plan: * Awaiting General surgery and pulmonology consult, appreciate recommendations. * Patient had been previously made aware of the potential of a metastatic process during hospitalization at [place] in March. She had not yet followed up. She had a reported Oncology appointment scheduled for yesterday. (4) Sepsis: Code(s): A41.9 - Sepsis, unspecified organism Status: Resolved Assessment and Plan: Upon presentation to emergency room Continue to monitor Early goal-directed therapy in progress 05/23/24: * Resolved. No longer meeting sepsis criteria. 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 HOLD for now for surgery consultation for colonic mass. (6) Lung mass: Code(s): R91.8 - Other nonspecific abnormal finding of lung field Status: Acute Assessment and Plan: * Pulmonology consult, appreciate recommendations. * Incidental left spiculated nodule 1.5 cm which has been present since Feb 2024, (+) PET at [facility] She had a follow up visit scheduled for today at [place] with out patient radiation oncology however missed appt due to having abdominal pain, admitted @ [place] May 22. * Per Facilities Maintenance Manager Dr. Ro plan: Main issue now is her near-obstructing colon mass; she has a lung mass that appears to be a lung primary. The prior CT scans in Jan and twice in Mar at [place] did not describe a colon mass. The PET scan 03/24/24 at [place] showed uptake in the lung nodule but not anywhere else, nothing in the colon. I have not looked at images from [place]. It is unlikely that she has a colon primary malignancy with a metastatic lesion to the lung. I reviewed reports in 2 inches of medical records. I spoke with Tabitha Quan APN, shared abd-pelvis report from [facility] 04/08/24. * NPO for lung biopsy today. Per pulmonology this nodule is highly likely to be the lung cancer primary. (7) Headache: Code(s): R51.9 - Headache, unspecified Status: Acute Assessment and Plan: * Fiorcet 1 tab PO BID PRN (8) Nausea: Code(s): R11.0 - Nausea Status: Acute Assessment and Plan: * Phenergan 25 mg PO q 6 PRN. Subjective Date/time seen: 05/26/24 11:56 Interval history: Patient reports pain in head and RUQ is an 8 , constant, and aching. Patient denies chest pain, palpitations, vomiting, or dizziness. Patient reports nausea at times. Review of Systems Review of Systems: All systems reviewed & are unremarkable except as noted in HPI and below Exam Const: General: no acute distress and uncomfortable Resp: Effort & Inspection: normal respiratory effort Auscultation: clear to auscultation bilaterally Cardio: Rate: regular rate Rhythm: regular rhythm GI: GI Palp: Yes Soft to palpation and Yes Tenderness to palpation present (GI) (RUQ) Auscultation: normal bowel sounds Neuro: Speech: normal speech Extrem: General: no pedal edema Psych: Mental Status: mental status grossly normal Affect: normal affect Objective Data Vital Signs Vital Signs: Vital Signs - 24 hr 05/25/24 12:00 05/25/24 12:05 05/25/24 12:23 Temperature 97.0 F L Pulse Rate 100 90 Respiratory Rate 18 Blood Pressure 98/58 L Pulse Oximetry 99 Oxygen Delivery Room Air 05/25/24 12:54 05/25/24 16:00 05/25/24 16:05 Temperature 98.2 F Pulse Rate 99 90 Respiratory Rate 17 Blood Pressure 115/54 L Pulse Oximetry 98 Oxygen Delivery Room Air 05/25/24 19:59 05/25/24 20:00 05/26/24 00:00 Temperature 98 F Pulse Rate 108 H 110 H 111 H Respiratory Rate 18 Blood Pressure 116/46 L Pulse Oximetry 99 Oxygen Delivery 05/26/24 04:00 05/26/24 05:23 Temperature 97.2 F L Pulse Rate 98 100 Respiratory Rate 20 Blood Pressure 117/54 L Pulse Oximetry 100 Oxygen Delivery Intake/Output Intake/Output: Intake & Output 05/23/24 05/24/24 05/25/24 05/26/24 23:59 23:59 23:59 23:59 Intake Total 2060 1980 1670 600 Output Total 0436 314 3026 1400 Balance 760 1580 -1680 -800 Meds/Results Medications: Active Medications Generic Name Dose Route Start Last Admin Trade Name Freq PRN Reason Stop Dose Admin Acetaminophen/Butalbital/Caffeine 1 tab 05/22/24 23:48 05/26/24 03:45 Acetaminophen/Butalbital/Caffeine 325-50-40 Mg Tablet (Fioricet) PO 1 tab BID PRN Administration pain 4-6 Alprazolam 0.25 mg 05/23/24 09:46 05/26/24 10:02 Alprazolam (*Crx) 0.25 Mg Tablet PO 0.25 mg TID PRN Administration Anxiety Amitriptyline HCl 75 mg 05/23/24 21:00 05/25/24 21:00 Amitriptyline Hcl 25 Mg Tablet PO 75 mg HS GEOVANNI Administration Gabapentin 600 mg 05/23/24 09:00 05/26/24 10:02 Gabapentin 300 Mg Capsule PO 600 mg TID GEOVANNI Administration Piperacillin/Tazobactam/Dextrose 3.375 gm in 50 mls @ 100 mls/hr 05/23/24 00:00 05/26/24 05:20 Zosyn 3.375 Gm/Ns 50 Ml IVPB 100 mls/hr Q6H GEOVANNI Administration Lidocaine 2 patch 05/23/24 09:00 05/26/24 10:06 Lidocaine 5% Patch TRANSDERM 1 patch DAILY GEOVANNI Administration Oxycodone HCl 5 mg 05/22/24 23:37 05/26/24 10:02 Oxycodone Hcl (*Crx) 5 Mg Tab Ir PO 5 mg Q4H PRN Administration pain 7-10 Pantoprazole Sodium 40 mg 05/23/24 09:00 05/26/24 10:02 Pantoprazole 40 Mg Tablet PO 40 mg QAM GEOVANNI Administration Promethazine HCl 25 mg 05/25/24 10:41 05/25/24 21:00 Promethazine Hcl 25 Mg Tablet PO 25 mg Q6H PRN Administration Nausea And Vomiting Radiology Results: ITS Impressions Chest/Abdomen/Pelvis CTA 05/22/24 13:13 IMPRESSION: 1. 1.5 cm spiculated nodule at the lingula concerning for primary bronchogenic carcinoma. If there is no prior outside imaging to confirm long-term stability would recommend further evaluation with CT-guided biopsy. 2. Stranding and wall thickening at the splenic flexure with nodular extension of soft tissue into the pericolonic fat and mild mesenteric lymphadenopathy which is highly concerning for primary colon cancer. Differential would include diverticulitis or focal colitis. Recommend colonoscopy for further evaluation. Labs Labs: Laboratory Results - last 24 hr 05/25/24 05/25/24 05/26/24 05:36 05:40 06:18 WBC 8.1 RBC 3.28 L Hgb 7.4 L Hct 25.9 L MCV 79.0 L MCH 22.6 L MCHC 28.6 L RDW 15.1 H Plt Count 373 MPV 11.1 H Immature Gran % (Auto) 0.4 Neut % (Auto) 56.5 Lymph % (Auto) 33.0 [place] % (Auto) 6.4 Eos % (Auto) 3.5 Baso % (Auto) 0.2 Lymph # (Auto) 2.67 [place] # (Auto) 0.5 Eos # (Auto) 0.3 Baso # (Auto) 0.0 Abs Immat Gran (auto) 0.03 Absolute Neuts (auto) 4.6 Absolute Nucleated RBC 0.000 Nucleated RBC % 0.0 Platelet Estimate Adequate Large Platelets Present Hypochromasia 1+ Anisocytosis 1+ Schistocytes None seen Sodium Potassium Chloride Carbon Dioxide Anion Gap BUN Creatinine Estim Creat Clear Calc Estimated GFR Glucose Calcium Iron 20 L TIBC 328 % Saturation 6 L Ferritin 11.90 Total Bilirubin AST ALT Alkaline Phosphatase Total Protein Albumin Vitamin B12 326.0 Folate 12.9 05/26/24 07:24 WBC RBC Hgb Hct MCV MCH MCHC RDW Plt Count MPV Immature Gran % (Auto) Neut % (Auto) Lymph % (Auto) [place] % (Auto) Eos % (Auto) Baso % (Auto) Lymph # (Auto) [place] # (Auto) Eos # (Auto) Baso # (Auto) Abs Immat Gran (auto) Absolute Neuts (auto) Absolute Nucleated RBC Nucleated RBC % Platelet Estimate Large Platelets Hypochromasia Anisocytosis Schistocytes Sodium 139 Potassium 4.8 Chloride 109 H Carbon Dioxide 23 Anion Gap 7 BUN 10 Creatinine 0.60 L Estim Creat Clear Calc 75 Estimated GFR > 60 Glucose 92 Calcium 9.1 Iron TIBC % Saturation Ferritin Total Bilirubin 0.3 AST 21 ALT 11 Alkaline Phosphatase 120 Total Protein 6.0 L Albumin 3.2 L Vitamin B12 Folate Quality VTE Prophylaxis VTE prophylaxis: pharmacologic ordered
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
[2024-05-26] MEDS: PROMETHAZINE HCL 25 MG TABLET PO ×2 (13:24→20:55)
[2024-05-26] MEDS: AMITRIPTYLINE HCL 25 MG TABLET 75 MG PO (20:50)
[2024-05-27] VITALS (9 sets, daily range): BP systolic 94–112; BP diastolic 48–55; PULSE 84–107; RESP 16–20; TEMP 36.2–36.6; O2SAT 92–97
[2024-05-27] MEDS: oxyCODONE HCL (*CRX) 5 MG TAB IR PO ×3 (03:20→15:09)
[2024-05-27] MEDS: PIPERACILLN/TAZ 3.375GM/NS50ML 3.375 GM/50 ML BAG IVPB ×3 (06:00→18:11)
[2024-05-27] MEDS: ACETAMINOPHEN/BUTALBITAL/CAFFEINE 325-50-40 MG TABLET (FIORICET) 1 TAB PO ×2 (06:39→20:20)
[2024-05-27 06:40] LABS: Basophils Percent Auto 0.4 % (0.2-1.2); Eosinophils Absolute Auto 0.3 K/mm3 (0-0.3); Hemoglobin 7.2 g/dL (12.0-15.0); Immature Granulocyte Absolute 0.02 K/mm3 (0.00-0.031); Immature Granulocyte Percent A 0.2 % (0-0.5); Lymphocytes Absolute Auto 2.76 K/mm3 (0.9-3.2); Lymphocytes Percent Auto 33.6 % (18.3-44.2); Mean Corpuscular HGB Conc 28.8 g/dl (32-36); Mean Corpuscular Hemoglobin 22.6 pg (26-34); Mean Corpuscular Volume 78.6 fl (80-100); Mean Platelet Volume 10.4 fl (7.4-10.4); Monocytes Absolute Auto 0.6 K/mm3 (0.1-0.6); Monocytes Percent Auto 7.3 % (2.6-8.5); Neutrophils Absolute Auto 4.5 K/mm3 (1.3-6.7); Neutrophils Percent Auto 54.5 % (45.5-73.1); Platelet Count Result 379 k/mm3 (150-375); Red Blood Count 3.18 M/mm3 (4.2-5.4); Red Cell Distribution Width 15.3 % (11.5-14.5); White Blood Count 8.2 K/mm3 (4.5-10.0)
[2024-05-27 06:48] LABS: Alanine Aminotransferase 10 U/L (6-35); Albumin Level 3.3 g/dL (3.5-5.1); Alkaline Phosphatase 105 U/L (38-126); Anion Gap 10 mmol/L (4-12); Aspartate Amino Transferase 16 U/L (14-36); Bilirubin,Total 0.2 mg/dL (0.2-1.3); Blood Urea Nitrogen 13 mg/dL (7-17); Calcium 8.6 mg/dL (8.4-10.2); Carbon Dioxide 26 mmol/L (22-30); Chloride 104 mmol/L (98-107); Estimated CRCL calculation 65 ml/min; Estimated Glomerular Filt Rate > 60; Glucose 99 mg/dL (65-110); Potassium 3.8 mmol/L (3.4-5.0); Sodium 140 mmol/L (137-145)
[2024-05-27 07:27] LABS: Anisocytosis 1+; Hypochromasia 1+; Ovalocytes 1+; Platelet Estimate Adequate (Adequate); Schistocytes None Seen
[2024-05-27] MEDS: ALPRAZolam (*CRX) 0.25 MG TABLET PO ×2 (07:44→15:09)
[2024-05-27] MEDS: GABAPENTIN 300 MG CAPSULE 600 MG PO ×3 (07:44→18:11)
[2024-05-27] MEDS: PANTOPRAZOLE 40 MG TABLET PO (07:44)
[2024-05-27] MEDS: PROMETHAZINE HCL 25 MG TABLET PO ×2 (07:48→15:09)
[2024-05-27] MEDS: LIDOCAINE 5% PATCH 2 PATCH TRANSDERM (07:51)
--- NOTE | 2024-05-27 11:13 | P.PNIM_ITS ---
Progress Note: A&P Assessment and Plan (1) Colitis: Code(s): K52.9 - Noninfective gastroenteritis and colitis, unspecified Status: Acute Assessment and Plan: * Continue Zosyn for presumed possibility of infection in the colon as noted per CTA of abdomen and pelvis demonstrating a differential of possible diverticulitis or focal colitis aside from concern of potential primary colon cancer. * Continue Protonix * Monitor labs and trend vitals. * Colonscopy on 05/24/24 showed: near-occlusive left colonic mass, malignant aspect. She needs urgent surgery evaluation, consult placed. * Tolerating a low fiber diet. (2) Colonic mass: Code(s): K63.89 - Other specified diseases of intestine Status: Acute Assessment and Plan: * As evidenced by CTA chest abdomen and pelvis. * Carcinoembryonic Ag level 4.5. * Colonoscopy 05/24/24 showed: near-occlusive left colonic mass, malignant aspect. She needs urgent surgery evaluation, consult placed. Keep the patient on clear liquids for now and hold Eliquis. * General surgery consult. Per surgery note today: colonoscopic report reviewed, likely c colon cancer, ? stage 4 given noted lung mass, exam cont to benign, +bowel fxn and currently sandeep clears, will get oncology to see re: poss neoadjuvant chemotherapy, will likely need PET and bx of lung mass * Oncology consult, appreciate recommendations. * Per oncology: CT scan reviewed. Sigmoidoscopy showed malignant appearing colon mass and the descending colon. Pathology is pending. CEA slightly elevated at 4.5. Further management will be based on the pathology report from the sigmoidoscopy. Decision was made to proceed with CT-guided biopsy of the lung mass pending pathology from sigmoidoscopy. I have provided her my office information for follow-up. (3) Cancer: Code(s): C80.1 - Malignant (primary) neoplasm, unspecified Status: Acute Assessment and Plan: * Awaiting General surgery and pulmonology consult, appreciate recommendations. * Patient had been previously made aware of the potential of a metastatic process during hospitalization at [place] in March. She had not yet followed up. She had a reported Oncology appointment scheduled for yesterday. (4) Sepsis: Code(s): A41.9 - Sepsis, unspecified organism Status: Resolved Assessment and Plan: Upon presentation to emergency room Continue to monitor Early goal-directed therapy in progress 05/23/24: * Resolved. No longer meeting sepsis criteria. 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 HOLD for now for surgery consultation for colonic mass. (6) Lung mass: Code(s): R91.8 - Other nonspecific abnormal finding of lung field Status: Acute Assessment and Plan: * Pulmonology consult, appreciate recommendations. * Incidental left spiculated nodule 1.5 cm which has been present since Feb 2024, (+) PET at [facility] in [facility] She had a follow up visit scheduled for today at [place] with out patient radiation oncology however missed appt due to having abdominal pain, admitted @ [place] May 22. * Per Occupational Therapy Department Chair Dr. Ro plan: Main issue now is her near-obstructing colon mass; she has a lung mass that appears to be a lung primary. The prior CT scans in Jan and twice in Mar at [place] did not describe a colon mass. The PET scan 03/24/24 at [place] showed uptake in the lung nodule but not anywhere else, nothing in the colon. I have not looked at images from [place]. It is unlikely that she has a colon primary malignancy with a metastatic lesion to the lung. I reviewed reports in 2 inches of medical records. I spoke with Tabitha Quan APN, shared abd-pelvis report from [facility] 04/08/24. * Lung biopsy done on 05/26/2024. Per pulmonology this nodule is highly likely to be the lung cancer primary. (7) Headache: Code(s): R51.9 - Headache, unspecified Status: Acute Assessment and Plan: * Fiorcet 1 tab PO BID PRN (8) Nausea: Code(s): R11.0 - Nausea Status: Acute Assessment and Plan: * Phenergan 25 mg PO q 6 PRN. Subjective Date/time seen: 05/27/24 11:13 Interval history: Patient reports pain in head and RUQ is an 6 , constant, and aching. Patient denies chest pain, palpitations, vomiting, or dizziness. Patient reports nausea at times. Patient asking for medication to sleep, patient has used Melatonin in the past that has helped. Review of Systems Review of Systems: All systems reviewed & are unremarkable except as noted in HPI and below Exam Const: General: no acute distress and uncomfortable Resp: Effort & Inspection: normal respiratory effort Auscultation: clear to auscultation bilaterally Cardio: Rate: regular rate Rhythm: regular rhythm GI: GI Palp: Yes Soft to palpation and Yes Tenderness to palpation present (GI) (RUQ) Auscultation: normal bowel sounds Neuro: Speech: normal speech Extrem: General: no pedal edema Psych: Mental Status: mental status grossly normal Affect: normal affect Objective Data Vital Signs Vital Signs: Vital Signs - 24 hr 05/26/24 12:00 05/26/24 15:46 05/26/24 16:00 Temperature Pulse Rate 91 96 97 Respiratory Rate 14 Blood Pressure 123/64 Pulse Oximetry 94 05/26/24 16:15 05/26/24 17:04 05/26/24 17:31 Temperature Pulse Rate 101 H 100 102 H Respiratory Rate 12 12 14 Blood Pressure 100/64 112/68 102/56 L Pulse Oximetry 98 98 98 05/26/24 18:41 05/26/24 20:00 05/26/24 20:00 Temperature 97.7 F Pulse Rate 110 H 95 101 H Respiratory Rate 16 20 Blood Pressure 114/65 97/46 L Pulse Oximetry 97 99 05/27/24 00:00 05/27/24 00:00 05/27/24 04:00 Temperature 97.8 F 97.7 F Pulse Rate 94 99 100 Respiratory Rate 20 20 Blood Pressure 104/48 L 103/52 L Pulse Oximetry 96 96 05/27/24 04:00 05/27/24 08:41 Temperature 97.1 F L Pulse Rate 97 90 Respiratory Rate 16 Blood Pressure 94/55 L Pulse Oximetry 93 Intake/Output Intake/Output: Intake & Output 05/24/24 05/25/24 05/26/24 05/27/24 23:59 23:59 23:59 23:59 Intake Total 1980 1670 1280 530 Output Total 400 3350 2300 Balance 1580 -1680 -1020 530 Meds/Results Medications: Active Medications Generic Name Dose Route Start Last Admin Trade Name Freq PRN Reason Stop Dose Admin Acetaminophen/Butalbital/Caffeine 1 tab 05/22/24 23:48 05/27/24 06:39 Acetaminophen/Butalbital/Caffeine 325-50-40 Mg Tablet (Fioricet) PO 1 tab BID PRN Administration pain 4-6 Alprazolam 0.25 mg 05/23/24 09:46 05/27/24 07:44 Alprazolam (*Crx) 0.25 Mg Tablet PO 0.25 mg TID PRN Administration Anxiety Amitriptyline HCl 75 mg 05/23/24 21:00 05/26/24 20:50 Amitriptyline Hcl 25 Mg Tablet PO 75 mg HS GEOVANNI Administration Gabapentin 600 mg 05/23/24 09:00 05/27/24 07:44 Gabapentin 300 Mg Capsule PO 600 mg TID GEOVANNI Administration Piperacillin/Tazobactam/Dextrose 3.375 gm in 50 mls @ 100 mls/hr 05/23/24 00:00 05/27/24 06:30 Zosyn 3.375 Gm/Ns 50 Ml IVPB Infused Q6H GEOVANNI Infusion Lidocaine 2 patch 05/23/24 09:00 05/27/24 07:51 Lidocaine 5% Patch TRANSDERM 2 patch DAILY GEOVANNI Administration Oxycodone HCl 5 mg 05/22/24 23:37 05/27/24 07:46 Oxycodone Hcl (*Crx) 5 Mg Tab Ir PO 5 mg Q4H PRN Administration pain 7-10 Pantoprazole Sodium 40 mg 05/23/24 09:00 05/27/24 07:44 Pantoprazole 40 Mg Tablet PO 40 mg QAM GEOVANNI Administration Promethazine HCl 25 mg 05/25/24 10:41 05/27/24 07:48 Promethazine Hcl 25 Mg Tablet PO 25 mg Q6H PRN Administration Nausea And Vomiting Radiology Results: ITS Impressions Chest/Abdomen/Pelvis CTA 05/22/24 13:13 IMPRESSION: 1. 1.5 cm spiculated nodule at the lingula concerning for primary bronchogenic carcinoma. If there is no prior outside imaging to confirm long-term stability would recommend further evaluation with CT-guided biopsy. 2. Stranding and wall thickening at the splenic flexure with nodular extension of soft tissue into the pericolonic fat and mild mesenteric lymphadenopathy which is highly concerning for primary colon cancer. Differential would include diverticulitis or focal colitis. Recommend colonoscopy for further evaluation. Lung Biopsy CT 05/26/24 17:23 IMPRESSION: 1. Technically successful CT-guided core biopsy of a 13 mm suspicious lung lesion within the left upper lobe. No immediate complications were encountered. Pathology is pending. Chest X-Ray 05/26/24 18:52 IMPRESSION: 1. Nodule in left midlung zone suspicious for primary bronchogenic carcinoma and postbiopsy hemorrhage. 2. Mild atelectasis at left lung base. Labs Labs: Laboratory Results - last 24 hr 05/27/24 06:25 WBC 8.2 RBC 3.18 L Hgb 7.2 L Hct 25.0 L MCV 78.6 L MCH 22.6 L MCHC 28.8 L RDW 15.3 H Plt Count 379 H MPV 10.4 Immature Gran % (Auto) 0.2 Neut % (Auto) 54.5 Lymph % (Auto) 33.6 [place] % (Auto) 7.3 Eos % (Auto) 4.0 Baso % (Auto) 0.4 Lymph # (Auto) 2.76 [place] # (Auto) 0.6 Eos # (Auto) 0.3 Baso # (Auto) 0.0 Abs Immat Gran (auto) 0.02 Absolute Neuts (auto) 4.5 Absolute Nucleated RBC 0.000 Nucleated RBC % 0.0 Platelet Estimate Adequate Hypochromasia 1+ Anisocytosis 1+ Ovalocytes 1+ Schistocytes None seen Sodium 140 Potassium 3.8 Chloride 104 Carbon Dioxide 26 Anion Gap 10 BUN 13 Creatinine 0.71 Estim Creat Clear Calc 65 Estimated GFR > 60 Glucose 99 Calcium 8.6 Total Bilirubin 0.2 AST 16 ALT 10 Alkaline Phosphatase 105 Total Protein 7.0 Albumin 3.3 L Quality VTE Prophylaxis VTE prophylaxis: pharmacologic ordered
--- NOTE | 2024-05-27 11:29 | PM.PNGS ---
Progress Note: A&P Assessment and Plan (1) Colonic mass: Code(s): K63.89 - Other specified diseases of intestine Status: Acute Assessment and Plan: await path, exam benign, sandeep low fiber diet (2) Lung mass: Code(s): R91.8 - Other nonspecific abnormal finding of lung field Status: Acute Assessment and Plan: await path Subjective Subjective Date/Time Seen: 05/27/24 11:29 Interval history: doing well, no acute issues, had lung bx yesterday Review of Systems Review of Systems: All systems reviewed & are unremarkable except as noted in HPI and below Exam Const: General: cooperative, comfortable and no acute distress Resp: Auscultation: diminished lung sounds Cardio: Rate: regular rate Rhythm: regular rhythm GI: Inspection: normal to inspection and non-distended GI Palp: Yes abdominal tenderness, Yes Soft to palpation, No Guarding due to palpation present (GI) and No Rigid due to palpation Objective Data Vital Signs Vital Signs: Vital Signs - 24 hr 05/26/24 12:00 05/26/24 15:46 05/26/24 16:00 Temperature Pulse Rate 91 96 97 Respiratory Rate 14 Blood Pressure 123/64 Pulse Oximetry 94 05/26/24 16:15 05/26/24 17:04 05/26/24 17:31 Temperature Pulse Rate 101 H 100 102 H Respiratory Rate 12 12 14 Blood Pressure 100/64 112/68 102/56 L Pulse Oximetry 98 98 98 05/26/24 18:41 05/26/24 20:00 05/26/24 20:00 Temperature 36.5 C Pulse Rate 110 H 95 101 H Respiratory Rate 16 20 Blood Pressure 114/65 97/46 L Pulse Oximetry 97 99 05/27/24 00:00 05/27/24 00:00 05/27/24 04:00 Temperature 36.6 C 36.5 C Pulse Rate 94 99 100 Respiratory Rate 20 20 Blood Pressure 104/48 L 103/52 L Pulse Oximetry 96 96 05/27/24 04:00 05/27/24 08:41 Temperature 36.2 C L Pulse Rate 97 90 Respiratory Rate 16 Blood Pressure 94/55 L Pulse Oximetry 93 Intake/Output Intake/Output: Intake & Output 05/24/24 05/25/24 05/26/24 05/27/24 23:59 23:59 23:59 23:59 Intake Total 1980 1670 1280 530 Output Total 400 3350 2300 Balance 7771 -0590 1020 530 Meds/Results Medications: Active Medications Generic Name Dose Route Start Last Admin Trade Name Freq PRN Reason Stop Dose Admin Acetaminophen/Butalbital/Caffeine 1 tab 05/22/24 23:48 05/27/24 06:39 Acetaminophen/Butalbital/Caffeine 325-50-40 Mg Tablet (Fioricet) PO 1 tab BID PRN Administration pain 4-6 Alprazolam 0.25 mg 05/23/24 09:46 05/27/24 07:44 Alprazolam (*Crx) 0.25 Mg Tablet PO 0.25 mg TID PRN Administration Anxiety Amitriptyline HCl 75 mg 05/23/24 21:00 05/26/24 20:50 Amitriptyline Hcl 25 Mg Tablet PO 75 mg HS GEOVANNI Administration Gabapentin 600 mg 05/23/24 09:00 05/27/24 07:44 Gabapentin 300 Mg Capsule PO 600 mg TID GEOVANNI Administration Piperacillin/Tazobactam/Dextrose 3.375 gm in 50 mls @ 100 mls/hr 05/23/24 00:00 05/27/24 06:30 Zosyn 3.375 Gm/Ns 50 Ml IVPB Infused Q6H GEOVANNI Infusion Lidocaine 2 patch 05/23/24 09:00 05/27/24 07:51 Lidocaine 5% Patch TRANSDERM 2 patch DAILY GEOVANNI Administration Melatonin 3 mg 05/27/24 11:13 Melatonin 3 Mg Tablet PO HS PRN Insomnia Oxycodone HCl 5 mg 05/22/24 23:37 05/27/24 07:46 Oxycodone Hcl (*Crx) 5 Mg Tab Ir PO 5 mg Q4H PRN Administration pain 7-10 Pantoprazole Sodium 40 mg 05/23/24 09:00 05/27/24 07:44 Pantoprazole 40 Mg Tablet PO 40 mg QAM GEOVANNI Administration Promethazine HCl 25 mg 05/25/24 10:41 05/27/24 07:48 Promethazine Hcl 25 Mg Tablet PO 25 mg Q6H PRN Administration Nausea And Vomiting Radiology Results: ITS Impressions Chest/Abdomen/Pelvis CTA 05/22/24 13:13 IMPRESSION: 1. 1.5 cm spiculated nodule at the lingula concerning for primary bronchogenic carcinoma. If there is no prior outside imaging to confirm long-term stability would recommend further evaluation with CT-guided biopsy. 2. Stranding and wall thickening at the splenic flexure with nodular extension of soft tissue into the pericolonic fat and mild mesenteric lymphadenopathy which is highly concerning for primary colon cancer. Differential would include diverticulitis or focal colitis. Recommend colonoscopy for further evaluation. Lung Biopsy CT 05/26/24 17:23 IMPRESSION: 1. Technically successful CT-guided core biopsy of a 13 mm suspicious lung lesion within the left upper lobe. No immediate complications were encountered. Pathology is pending. Chest X-Ray 05/26/24 18:52 IMPRESSION: 1. Nodule in left midlung zone suspicious for primary bronchogenic carcinoma and postbiopsy hemorrhage. 2. Mild atelectasis at left lung base. Labs Labs: Laboratory Results - last 24 hr 05/27/24 06:25 WBC 8.2 RBC 3.18 L Hgb 7.2 L Hct 25.0 L MCV 78.6 L MCH 22.6 L MCHC 28.8 L RDW 15.3 H Plt Count 379 H MPV 10.4 Immature Gran % (Auto) 0.2 Neut % (Auto) 54.5 Lymph % (Auto) 33.6 [place] % (Auto) 7.3 Eos % (Auto) 4.0 Baso % (Auto) 0.4 Lymph # (Auto) 2.76 [place] # (Auto) 0.6 Eos # (Auto) 0.3 Baso # (Auto) 0.0 Abs Immat Gran (auto) 0.02 Absolute Neuts (auto) 4.5 Absolute Nucleated RBC 0.000 Nucleated RBC % 0.0 Platelet Estimate Adequate Hypochromasia 1+ Anisocytosis 1+ Ovalocytes 1+ Schistocytes None seen Sodium 140 Potassium 3.8 Chloride 104 Carbon Dioxide 26 Anion Gap 10 BUN 13 Creatinine 0.71 Estim Creat Clear Calc 65 Estimated GFR > 60 Glucose 99 Calcium 8.6 Total Bilirubin 0.2 AST 16 ALT 10 Alkaline Phosphatase 105 Total Protein 7.0 Albumin 3.3 L
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
[2024-05-27] MEDS: AMITRIPTYLINE HCL 25 MG TABLET 75 MG PO (20:20)
[2024-05-28] VITALS (8 sets, daily range): BP systolic 102–117; BP diastolic 44–60; PULSE 89–114; RESP 16–18; TEMP 35.9–36.6; O2SAT 92–99
[2024-05-28] MEDS: PIPERACILLN/TAZ 3.375GM/NS50ML 3.375 GM/50 ML BAG IVPB ×5 (00:06→23:44)
[2024-05-28] MEDS: PROMETHAZINE HCL 25 MG TABLET PO ×4 (00:19→20:27)
--- NOTE | 2024-05-28 05:27 | PC.NURSE ---
Student nurse, Loida Vicente did the majority of the charting on this patient. The proposal lead writer reviewed all charting.
[2024-05-28] MEDS: oxyCODONE HCL (*CRX) 5 MG TAB IR PO ×2 (05:37→20:26)
[2024-05-28 06:21] LABS: Basophils Percent Auto 0.5 % (0.2-1.2); Eosinophils Absolute Auto 0.3 K/mm3 (0-0.3); Eosinophils Percent Auto 4.1 % (0-4.4); Hematocrit 26.1 % (37.0-47.0); Hemoglobin 7.7 g/dL (12.0-15.0); Immature Granulocyte Absolute 0.03 K/mm3 (0.00-0.031); Immature Granulocyte Percent A 0.4 % (0-0.5); Lymphocytes Absolute Auto 2.52 K/mm3 (0.9-3.2); Mean Corpuscular HGB Conc 29.5 g/dl (32-36); Mean Corpuscular Volume 77.9 fl (80-100); Mean Platelet Volume 10.8 fl (7.4-10.4); Monocytes Absolute Auto 0.6 K/mm3 (0.1-0.6); Monocytes Percent Auto 7.7 % (2.6-8.5); Neutrophils Absolute Auto 4.4 K/mm3 (1.3-6.7); Neutrophils Percent Auto 55.3 % (45.5-73.1); Platelet Count Result 414 k/mm3 (150-375); Red Blood Count 3.35 M/mm3 (4.2-5.4); Red Cell Distribution Width 15.5 % (11.5-14.5); White Blood Count 7.9 K/mm3 (4.5-10.0)
[2024-05-28 06:52] LABS: Alanine Aminotransferase 10 U/L (6-35); Albumin Level 3.5 g/dL (3.5-5.1); Alkaline Phosphatase 107 U/L (38-126); Anion Gap 8 mmol/L (4-12); Aspartate Amino Transferase 16 U/L (14-36); Bilirubin,Total 0.2 mg/dL (0.2-1.3); Blood Urea Nitrogen 13 mg/dL (7-17); Carbon Dioxide 26 mmol/L (22-30); Chloride 106 mmol/L (98-107); Estimated CRCL calculation 55 ml/min; Estimated Glomerular Filt Rate > 60; Glucose 98 mg/dL (65-110); Sodium 140 mmol/L (137-145)
[2024-05-28 07:34] LABS: Schistocytes None Seen
[2024-05-28 07:36] LABS: Anisocytosis 1+; Hypochromasia 1+; Polychromasia 1+
[2024-05-28 07:37] LABS: Large Platelets Present; Platelet Estimate Increased (Adequate)
[2024-05-28] MEDS: LIDOCAINE 5% PATCH 2 PATCH TRANSDERM (08:21)
[2024-05-28] MEDS: GABAPENTIN 300 MG CAPSULE 600 MG PO ×3 (08:22→17:07)
[2024-05-28] MEDS: PANTOPRAZOLE 40 MG TABLET PO (08:22)
[2024-05-28] MEDS: ALPRAZolam (*CRX) 0.25 MG TABLET PO ×3 (08:25→23:44)
--- NOTE | 2024-05-28 10:17 | P.PNIM_ITS ---
Progress Note: A&P Assessment and Plan (1) Colitis: Code(s): K52.9 - Noninfective gastroenteritis and colitis, unspecified Status: Acute Assessment and Plan: * Continue Zosyn for presumed possibility of infection in the colon as noted per CTA of abdomen and pelvis demonstrating a differential of possible diverticulitis or focal colitis aside from concern of potential primary colon cancer. * Continue Protonix * Monitor labs and trend vitals. * Colonscopy on 05/24/24 showed: near-occlusive left colonic mass, malignant aspect. She needs urgent surgery evaluation, consult placed. * Tolerating a low fiber diet. (2) Colonic mass: Code(s): K63.89 - Other specified diseases of intestine Status: Acute Assessment and Plan: * As evidenced by CTA chest abdomen and pelvis. * Carcinoembryonic Ag level 4.5. * Colonoscopy 05/24/24 showed: near-occlusive left colonic mass, malignant aspect. She needs urgent surgery evaluation, consult placed. Keep the patient on clear liquids for now and hold Eliquis. * General surgery consult. Per surgery note 05/25/24: colonoscopic report reviewed, likely c colon cancer, ? stage 4 given noted lung mass, exam cont to benign, +bowel fxn and currently sandeep clears, will get oncology to see re: poss neoadjuvant chemotherapy, will likely need PET and bx of lung mass * Oncology consult, appreciate recommendations. * Per oncology: CT scan reviewed. Sigmoidoscopy showed malignant appearing colon mass and the descending colon. Pathology is pending. CEA slightly elevated at 4.5. Further management will be based on the pathology report from the sigmoidoscopy. Decision was made to proceed with CT-guided biopsy of the lung mass pending pathology from sigmoidoscopy. I have provided her my office information for follow-up. * Awaiting pathology report. (3) Cancer: Code(s): C80.1 - Malignant (primary) neoplasm, unspecified Status: Acute Assessment and Plan: * Awaiting General surgery and pulmonology consult, appreciate recommendations. * Patient had been previously made aware of the potential of a metastatic process during hospitalization at [facility] in March. She had not yet followed up. She had a reported Oncology appointment scheduled for yesterday. (4) Sepsis: Code(s): A41.9 - Sepsis, unspecified organism Status: Resolved Assessment and Plan: Upon presentation to emergency room Continue to monitor Early goal-directed therapy in progress 05/23/24: * Resolved. No longer meeting sepsis criteria. 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 HOLD for now for surgery consultation for colonic mass. (6) Lung mass: Code(s): R91.8 - Other nonspecific abnormal finding of lung field Status: Acute Assessment and Plan: * Pulmonology consult, appreciate recommendations. * Incidental left spiculated nodule 1.5 cm which has been present since Feb 2024, (+) PET at [facility] She had a follow up visit scheduled for today at [facility] with out patient radiation oncology however missed appt due to having abdominal pain, admitted @ [facility] May 22. * Per Environmental Health Technologist Dr. Ro plan: Main issue now is her near-obstructing colon mass; she has a lung mass that appears to be a lung primary. The prior CT scans in Jan and twice in Mar at [facility] did not describe a colon mass. The PET scan 03/24/24 at [facility] showed uptake in the lung nodule but not anywhere el se, nothing in the colon. I have not looked at images from [facility]. It is unlikely that she has a colon primary malignancy with a metastatic lesion to the lung. I reviewed reports in 2 inches of medical records. I spoke with Tabitha Quan APN, shared abd-pelvis report from [facility] 04/08/24. * Lung biopsy done on 05/26/2024. Per pulmonology this nodule is highly likely to be the lung cancer primary. * Awaiting pathology report. (7) Headache: Code(s): R51.9 - Headache, unspecified Status: Acute Assessment and Plan: * Fiorcet 1 tab PO BID PRN (8) Nausea: Code(s): R11.0 - Nausea Status: Acute Assessment and Plan: * Phenergan 25 mg PO q 6 PRN. Subjective Date/time seen: 05/28/24 10:17 Interval history: Patient reports pain in head and RUQ is an 8 , constant, and aching. Patient denies chest pain, palpitations, vomiting, or dizziness. Patient reports nausea at times. Review of Systems Review of Systems: All systems reviewed & are unremarkable except as noted in HPI and below Exam Const: General: no acute distress and uncomfortable Resp: Effort & Inspection: normal respiratory effort Auscultation: clear to auscultation bilaterally Cardio: Rate: regular rate Rhythm: regular rhythm GI: GI Palp: Yes Soft to palpation and Yes Tenderness to palpation present (GI) (RUQ) Auscultation: normal bowel sounds Neuro: Speech: normal speech Extrem: General: no pedal edema Psych: Mental Status: mental status grossly normal Affect: normal affect Objective Data Vital Signs Vital Signs: Vital Signs - 24 hr 05/27/24 12:00 05/27/24 14:18 05/27/24 16:00 Temperature 97.1 F L Pulse Rate 101 H 99 105 H Respiratory Rate 17 Blood Pressure 112/48 L Pulse Oximetry 97 Oxygen Delivery 05/27/24 17:51 05/27/24 20:00 05/27/24 20:15 Temperature 97.3 F L 97.2 F L Pulse Rate 103 H 107 H Respiratory Rate 16 18 Blood Pressure 106/53 L 95/52 L Pulse Oximetry 92 94 Oxygen Delivery Room Air 05/28/24 00:00 05/28/24 03:22 05/28/24 08:00 Temperature 96.7 F L 97 F L Pulse Rate 95 89 Respiratory Rate 18 16 Blood Pressure 102/44 L 103/60 Pulse Oximetry 95 94 Oxygen Delivery Room Air Intake/Output Intake/Output: Intake & Output 05/25/24 05/26/24 05/27/24 05/28/24 23:59 23:59 23:59 23:59 Intake Total 1670 1280 1610.0 400 Output Total 3350 2300 800 Balance -1680 -1020 810.0 400 Meds/Results Medications: Active Medications Generic Name Dose Route Start Last Admin Trade Name Freq PRN Reason Stop Dose Admin Acetaminophen/Butalbital/Caffeine 1 tab 05/22/24 23:48 05/27/24 20:20 Acetaminophen/Butalbital/Caffeine 325-50-40 Mg Tablet (Fioricet) PO 1 tab BID PRN Administration pain 4-6 Alprazolam 0.25 mg 05/23/24 09:46 05/28/24 08:25 Alprazolam (*Crx) 0.25 Mg Tablet PO 0.25 mg TID PRN Administration Anxiety Amitriptyline HCl 75 mg 05/23/24 21:00 05/27/24 20:20 Amitriptyline Hcl 25 Mg Tablet PO 75 mg HS GEOVANNI Administration Gabapentin 600 mg 05/23/24 09:00 05/28/24 08:22 Gabapentin 300 Mg Capsule PO 600 mg TID GEOVANNI Administration Piperacillin/Tazobactam/Dextrose 3.375 gm in 50 mls @ 100 mls/hr 05/23/24 00:00 05/28/24 05:36 Zosyn 3.375 Gm/Ns 50 Ml IVPB 100 mls/hr Q6H GEOVANNI Administration Lidocaine 2 patch 05/23/24 09:00 05/28/24 08:21 Lidocaine 5% Patch TRANSDERM 2 patch DAILY GEOVANNI Administration Melatonin 3 mg 05/27/24 11:13 Melatonin 3 Mg Tablet PO HS PRN Insomnia Oxycodone HCl 5 mg 05/22/24 23:37 05/28/24 05:37 Oxycodone Hcl (*Crx) 5 Mg Tab Ir PO 5 mg Q4H PRN Administration pain 7-10 Pantoprazole Sodium 40 mg 05/23/24 09:00 05/28/24 08:22 Pantoprazole 40 Mg Tablet PO 40 mg QAM GEOVANNI Administration Promethazine HCl 25 mg 05/25/24 10:41 05/28/24 08:25 Promethazine Hcl 25 Mg Tablet PO 25 mg Q6H PRN Administration Nausea And Vomiting Radiology Results: ITS Impressions Chest/Abdomen/Pelvis CTA 05/22/24 13:13 IMPRESSION: 1. 1.5 cm spiculated nodule at the lingula concerning for primary bronchogenic carcinoma. If there is no prior outside imaging to confirm long-term stability would recommend further evaluation with CT-guided biopsy. 2. Stranding and wall thickening at the splenic flexure with nodular extension of soft tissue into the pericolonic fat and mild mesenteric lymphadenopathy which is highly concerning for primary colon cancer. Differential would include diverticulitis or focal colitis. Recommend colonoscopy for further evaluation. Lung Biopsy CT 05/26/24 17:23 IMPRESSION: 1. Technically successful CT-guided core biopsy of a 13 mm suspicious lung lesion within the left upper lobe. No immediate complications were encountered. Pathology is pending. Chest X-Ray 05/26/24 18:52 IMPRESSION: 1. Nodule in left midlung zone suspicious for primary bronchogenic carcinoma and postbiopsy hemorrhage. 2. Mild atelectasis at left lung base. Labs Labs: Laboratory Results - last 24 hr 05/28/24 06:15 WBC 7.9 RBC 3.35 L Hgb 7.7 L Hct 26.1 L MCV 77.9 L MCH 23.0 L MCHC 29.5 L RDW 15.5 H Plt Count 414 H MPV 10.8 H Immature Gran % (Auto) 0.4 Neut % (Auto) 55.3 Lymph % (Auto) 32.0 [place] % (Auto) 7.7 Eos % (Auto) 4.1 Baso % (Auto) 0.5 Lymph # (Auto) 2.52 [place] # (Auto) 0.6 Eos # (Auto) 0.3 Baso # (Auto) 0.0 Abs Immat Gran (auto) 0.03 Absolute Neuts (auto) 4.4 Absolute Nucleated RBC 0.000 Nucleated RBC % 0.0 Platelet Estimate Increased Large Platelets Present Polychromasia 1+ Hypochromasia 1+ Anisocytosis 1+ Schistocytes None seen Sodium 140 Potassium 4.0 Chloride 106 Carbon Dioxide 26 Anion Gap 8 BUN 13 Creatinine 0.84 Estim Creat Clear Calc 55 Estimated GFR > 60 Glucose 98 Calcium 9.0 Total Bilirubin 0.2 AST 16 ALT 10 Alkaline Phosphatase 107 Total Protein 7.0 Albumin 3.5 Quality VTE Prophylaxis VTE prophylaxis: pharmacologic ordered
--- NOTE | 2024-05-28 12:45 | P.PNGS_ITS ---
Progress Note: A&P Assessment and Plan (1) Colonic mass: Code(s): K63.89 - Other specified diseases of intestine Status: Acute Assessment and Plan: exam cont to be benign, sandeep diet, +bowel fxn, await path (2) Lung mass: Code(s): R91.8 - Other nonspecific abnormal finding of lung field Status: Acute Assessment and Plan: await path Subjective Subjective Date/Time Seen: 05/28/24 12:45 Interval history: no acute issues, sandeep diet, +bowel fxn Review of Systems Review of Systems: All systems reviewed & are unremarkable except as noted in HPI and below Exam Const: General: cooperative, comfortable and no acute distress Resp: Auscultation: clear to auscultation bilaterally Cardio: Rate: regular rate Rhythm: regular rhythm GI: Inspection: normal to inspection, distended and obesity GI Palp: Yes abdominal tenderness, Yes Soft to palpation, No Guarding due to palpation present (GI) and No Rigid due to palpation Objective Data Vital Signs Vital Signs: Vital Signs - 24 hr 05/27/24 14:18 05/27/24 16:00 05/27/24 17:51 Temperature 36.2 C L 36.3 C L Pulse Rate 99 105 H 103 H Respiratory Rate 17 16 Blood Pressure 112/48 L 106/53 L Pulse Oximetry 97 92 Oxygen Delivery 05/27/24 20:00 05/27/24 20:15 05/28/24 00:00 Temperature 36.2 C L 35.9 C L Pulse Rate 107 H 95 Respiratory Rate 18 18 Blood Pressure 95/52 L 102/44 L Pulse Oximetry 94 95 Oxygen Delivery Room Air 05/28/24 03:22 05/28/24 08:00 Temperature 36.1 C L Pulse Rate 89 Respiratory Rate 16 Blood Pressure 103/60 Pulse Oximetry 94 Oxygen Delivery Room Air Intake/Output Intake/Output: Intake & Output 05/25/24 05/26/24 05/27/24 05/28/24 23:59 23:59 23:59 23:59 Intake Total 1670 1280 1610.0 520 Output Total 3350 2300 800 Balance -1680 -1020 810.0 520 Meds/Results Medications: Active Medications Generic Name Dose Route Start Last Admin Trade Name Freq PRN Reason Stop Dose Admin Acetaminophen/Butalbital/Caffeine 1 tab 05/22/24 23:48 05/27/24 20:20 Acetaminophen/Butalbital/Caffeine 325-50-40 Mg Tablet (Fioricet) PO 1 tab BID PRN Administration pain 4-6 Alprazolam 0.25 mg 05/23/24 09:46 05/28/24 08:25 Alprazolam (*Crx) 0.25 Mg Tablet PO 0.25 mg TID PRN Administration Anxiety Amitriptyline HCl 75 mg 05/23/24 21:00 05/27/24 20:20 Amitriptyline Hcl 25 Mg Tablet PO 75 mg HS GEOVANNI Administration Gabapentin 600 mg 05/23/24 09:00 05/28/24 08:22 Gabapentin 300 Mg Capsule PO 600 mg TID GEOVANNI Administration Guaifenesin 600 mg 05/28/24 10:20 Guaifenesin 12 Hr 600 Mg Tabcr PO 06/04/24 10:19 Q12HR GEOVANNI Piperacillin/Tazobactam/Dextrose 3.375 gm in 50 mls @ 100 mls/hr 05/23/24 00:00 05/28/24 05:36 Zosyn 3.375 Gm/Ns 50 Ml IVPB 100 mls/hr Q6H GEOVANNI Administration Lidocaine 2 patch 05/23/24 09:00 05/28/24 08:21 Lidocaine 5% Patch TRANSDERM 2 patch DAILY GEOVANNI Administration Melatonin 3 mg 05/27/24 11:13 Melatonin 3 Mg Tablet PO HS PRN Insomnia Oxycodone HCl 5 mg 05/22/24 23:37 05/28/24 05:37 Oxycodone Hcl (*Crx) 5 Mg Tab Ir PO 5 mg Q4H PRN Administration pain 7-10 Pantoprazole Sodium 40 mg 05/23/24 09:00 05/28/24 08:22 Pantoprazole 40 Mg Tablet PO 40 mg QAM GEOVANNI Administration Promethazine HCl 25 mg 05/25/24 10:41 05/28/24 08:25 Promethazine Hcl 25 Mg Tablet PO 25 mg Q6H PRN Administration Nausea And Vomiting Radiology Results: ITS Impressions Chest/Abdomen/Pelvis CTA 05/22/24 13:13 IMPRESSION: 1. 1.5 cm spiculated nodule at the lingula concerning for primary bronchogenic carcinoma. If there is no prior outside imaging to confirm long-term stability would recommend further evaluation with CT-guided biopsy. 2. Stranding and wall thickening at the splenic flexure with nodular extension of soft tissue into the pericolonic fat and mild mesenteric lymphadenopathy which is highly concerning for primary colon cancer. Differential would include diverticulitis or focal colitis. Recommend colonoscopy for further evaluation. Lung Biopsy CT 05/26/24 17:23 IMPRESSION: 1. Technically successful CT-guided core biopsy of a 13 mm suspicious lung lesion within the left upper lobe. No immediate complications were encountered. Pathology is pending. Chest X-Ray 05/26/24 18:52 IMPRESSION: 1. Nodule in left midlung zone suspicious for primary bronchogenic carcinoma and postbiopsy hemorrhage. 2. Mild atelectasis at left lung base. Labs Labs: Laboratory Results - last 24 hr 05/28/24 06:15 WBC 7.9 RBC 3.35 L Hgb 7.7 L Hct 26.1 L MCV 77.9 L MCH 23.0 L MCHC 29.5 L RDW 15.5 H Plt Count 414 H MPV 10.8 H Immature Gran % (Auto) 0.4 Neut % (Auto) 55.3 Lymph % (Auto) 32.0 [place] % (Auto) 7.7 Eos % (Auto) 4.1 Baso % (Auto) 0.5 Lymph # (Auto) 2.52 [place] # (Auto) 0.6 Eos # (Auto) 0.3 Baso # (Auto) 0.0 Abs Immat Gran (auto) 0.03 Absolute Neuts (auto) 4.4 Absolute Nucleated RBC 0.000 Nucleated RBC % 0.0 Platelet Estimate Increased Large Platelets Present Polychromasia 1+ Hypochromasia 1+ Anisocytosis 1+ Schistocytes None seen Sodium 140 Potassium 4.0 Chloride 106 Carbon Dioxide 26 Anion Gap 8 BUN 13 Creatinine 0.84 Estim Creat Clear Calc 55 Estimated GFR > 60 Glucose 98 Calcium 9.0 Total Bilirubin 0.2 AST 16 ALT 10 Alkaline Phosphatase 107 Total Protein 7.0 Albumin 3.5
[2024-05-28] MEDS: guaiFENesin 12 HR 600 MG TABCR PO ×2 (13:17→20:26)
[2024-05-28] MEDS: ACETAMINOPHEN/BUTALBITAL/CAFFEINE 325-50-40 MG TABLET (FIORICET) 1 TAB PO (13:20)
[2024-05-28] MEDS: AMITRIPTYLINE HCL 25 MG TABLET 75 MG PO (20:26)
[2024-05-28] MEDS: MELATONIN 3 MG TABLET PO (20:26)
[2024-05-29] VITALS (9 sets, daily range): BP systolic 96–109; BP diastolic 40–58; PULSE 85–111; RESP 18; TEMP 36.1–36.9; O2SAT 93–96
[2024-05-29] MEDS: PIPERACILLN/TAZ 3.375GM/NS50ML 3.375 GM/50 ML BAG IVPB ×2 (05:23→12:34)
[2024-05-29] MEDS: ACETAMINOPHEN/BUTALBITAL/CAFFEINE 325-50-40 MG TABLET (FIORICET) 1 TAB PO (05:26)
[2024-05-29 05:59] LABS: Basophils Percent Auto 0.5 % (0.2-1.2); Eosinophils Absolute Auto 0.3 K/mm3 (0-0.3); Eosinophils Percent Auto 4.3 % (0-4.4); Hematocrit 26.6 % (37.0-47.0); Hemoglobin 7.6 g/dL (12.0-15.0); Immature Granulocyte Absolute 0.03 K/mm3 (0.00-0.031); Immature Granulocyte Percent A 0.4 % (0-0.5); Lymphocytes Absolute Auto 2.96 K/mm3 (0.9-3.2); Lymphocytes Percent Auto 37.3 % (18.3-44.2); Mean Corpuscular HGB Conc 28.6 g/dl (32-36); Mean Corpuscular Hemoglobin 22.2 pg (26-34); Mean Corpuscular Volume 77.8 fl (80-100); Mean Platelet Volume 10.4 fl (7.4-10.4); Monocytes Absolute Auto 0.6 K/mm3 (0.1-0.6); Monocytes Percent Auto 6.9 % (2.6-8.5); Neutrophils Percent Auto 50.6 % (45.5-73.1); Platelet Count Result 441 k/mm3 (150-375); Red Blood Count 3.42 M/mm3 (4.2-5.4); Red Cell Distribution Width 15.4 % (11.5-14.5); White Blood Count 7.9 K/mm3 (4.5-10.0)
[2024-05-29 06:13] LABS: Alanine Aminotransferase 12 U/L (6-35); Albumin Level 3.6 g/dL (3.5-5.1); Alkaline Phosphatase 110 U/L (38-126); Anion Gap 11 mmol/L (4-12); Aspartate Amino Transferase 19 U/L (14-36); Bilirubin,Total 0.3 mg/dL (0.2-1.3); Blood Urea Nitrogen 17 mg/dL (7-17); Calcium 9.2 mg/dL (8.4-10.2); Carbon Dioxide 24 mmol/L (22-30); Chloride 104 mmol/L (98-107); Estimated CRCL calculation 72 ml/min; Estimated Glomerular Filt Rate > 60; Glucose 89 mg/dL (65-110); Potassium 4.1 mmol/L (3.4-5.0); Sodium 139 mmol/L (137-145)
[2024-05-29 06:53] LABS: Anisocytosis 1+; Hypochromasia 1+; Platelet Estimate Increased (Adequate); Schistocytes None Seen
[2024-05-29] MEDS: PANTOPRAZOLE 40 MG TABLET PO (08:23)
[2024-05-29] MEDS: guaiFENesin 12 HR 600 MG TABCR PO ×2 (08:23→20:06)
[2024-05-29] MEDS: LIDOCAINE 5% PATCH 2 PATCH TRANSDERM (08:23)
[2024-05-29] MEDS: GABAPENTIN 300 MG CAPSULE 600 MG PO ×3 (08:23→16:19)
[2024-05-29] MEDS: ALPRAZolam (*CRX) 0.25 MG TABLET PO ×2 (08:23→18:08)
[2024-05-29] MEDS: PROMETHAZINE HCL 25 MG TABLET PO ×2 (08:38→16:19)
--- NOTE | 2024-05-29 10:16 | P.PNIM_ITS ---
Progress Note: A&P Assessment and Plan (1) Colitis: Code(s): K52.9 - Noninfective gastroenteritis and colitis, unspecified Status: Acute Assessment and Plan: * Continue Zosyn for presumed possibility of infection in the colon as noted per CTA of abdomen and pelvis demonstrating a differential of possible diverticulitis or focal colitis aside from concern of potential primary colon cancer. * Continue Protonix * Monitor labs and trend vitals. * Colonscopy on 05/24/24 showed: near-occlusive left colonic mass, malignant aspect. She needs urgent surgery evaluation, consult placed. * Tolerating a low fiber diet. (2) Colonic mass: Code(s): K63.89 - Other specified diseases of intestine Status: Acute Assessment and Plan: * As evidenced by CTA chest abdomen and pelvis. * Carcinoembryonic Ag level 4.5. * Colonoscopy 05/24/24 showed: near-occlusive left colonic mass, malignant aspect. She needs urgent surgery evaluation, consult placed. Keep the patient on clear liquids for now and hold Eliquis. * General surgery consult. Per surgery note 05/25/24: colonoscopic report reviewed, likely c colon cancer, ? stage 4 given noted lung mass, exam cont to benign, +bowel fxn and currently sandeep clears, will get oncology to see re: poss neoadjuvant chemotherapy, will likely need PET and bx of lung mass * Oncology consult, appreciate recommendations. * Per oncology: CT scan reviewed. Sigmoidoscopy showed malignant appearing colon mass and the descending colon. Pathology is pending. CEA slightly elevated at 4.5. Further management will be based on the pathology report from the sigmoidoscopy. Decision was made to proceed with CT-guided biopsy of the lung mass pending pathology from sigmoidoscopy. I have provided her my office information for follow-up. * Awaiting pathology report. (3) Cancer: Code(s): C80.1 - Malignant (primary) neoplasm, unspecified Status: Acute Assessment and Plan: * Awaiting General surgery and pulmonology consult, appreciate recommendations. * Patient had been previously made aware of the potential of a metastatic process during hospitalization at [facility] in March. She had not yet followed up. She had a reported Oncology appointment scheduled for yesterday. (4) Sepsis: Code(s): A41.9 - Sepsis, unspecified organism Status: Resolved Assessment and Plan: Upon presentation to emergency room Continue to monitor Early goal-directed therapy in progress 05/23/24: * Resolved. No longer meeting sepsis criteria. 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 HOLD for now for surgery consultation for colonic mass. (6) Lung mass: Code(s): R91.8 - Other nonspecific abnormal finding of lung field Status: Acute Assessment and Plan: * Pulmonology consult, appreciate recommendations. * Incidental left spiculated nodule 1.5 cm which has been present since Feb 2024, (+) PET at [facility] in [facility] She had a follow up visit scheduled for today at [facility] with out patient radiation oncology however missed appt due to having abdominal pain, admitted @ [facility] May 22. * Per [facility] Dr. Ro plan: Main issue now is her near-obstructing colon mass; she has a lung mass that appears to be a lung primary. The prior CT scans in Jan and twice in Mar at [facility] did not describe a colon mass. The PET scan 03/24/24 at [facility] showed uptake in the lung nodule but not anywhere el se, nothing in the colon. I have not looked at images from [facility]. It is unlikely that she has a colon primary malignancy with a metastatic lesion to the lung. I reviewed reports in 2 inches of medical records. I spoke with Tabitha Quan APN, shared abd-pelvis report from [facility] 04/08/24. * Lung biopsy done on 05/26/2024. Per pulmonology this nodule is highly likely to be the lung cancer primary. * Awaiting pathology report. (7) Headache: Code(s): R51.9 - Headache, unspecified Status: Acute Assessment and Plan: * Fiorcet 1 tab PO BID PRN (8) Nausea: Code(s): R11.0 - Nausea Status: Acute Assessment and Plan: * Phenergan 25 mg PO q 6 PRN. Subjective Date/time seen: 05/29/24 10:16 Interval history: Patient reports pain in head and RUQ is an 7 , constant, and aching. Patient denies chest pain, palpitations, vomiting, or dizziness. Patient reports nausea at times. Review of Systems Review of Systems: All systems reviewed & are unremarkable except as noted in HPI and below Exam Const: General: no acute distress and uncomfortable Resp: Effort & Inspection: normal respiratory effort Auscultation: clear to auscultation bilaterally Cardio: Rate: regular rate Rhythm: regular rhythm GI: GI Palp: Yes Soft to palpation Auscultation: normal bowel sounds Neuro: Speech: normal speech Extrem: General: no pedal edema Psych: Mental Status: mental status grossly normal Affect: normal affect Objective Data Vital Signs Vital Signs: Vital Signs - 24 hr 05/28/24 12:00 05/28/24 14:59 05/28/24 16:00 Temperature 97.0 F L Pulse Rate 107 H 102 H 114 H Respiratory Rate 18 Blood Pressure 117/45 L Pulse Oximetry 99 Oxygen Delivery 05/28/24 20:00 05/28/24 20:00 05/28/24 21:49 Temperature 97.8 F Pulse Rate 106 H 104 H Respiratory Rate 18 Blood Pressure 109/53 L Pulse Oximetry 92 Oxygen Delivery Room Air 05/29/24 00:00 05/29/24 04:00 05/29/24 06:00 Temperature 97 F L Pulse Rate 96 85 92 Respiratory Rate 18 Blood Pressure 109/58 L Pulse Oximetry 96 Oxygen Delivery 05/29/24 08:00 Temperature Pulse Rate Respiratory Rate Blood Pressure Pulse Oximetry Oxygen Delivery Room Air Intake/Output Intake/Output: Intake & Output 05/26/24 05/27/24 05/28/24 05/29/24 23:59 23:59 23:59 23:59 Intake Total 1280 1610.0 1500 590 Output Total 2300 800 600 800 Balance -1020 810.0 900 -210 Meds/Results Medications: Active Medications Generic Name Dose Route Start Last Admin Trade Name Freq PRN Reason Stop Dose Admin Acetaminophen/Butalbital/Caffeine 1 tab 05/22/24 23:48 05/29/24 05:26 Acetaminophen/Butalbital/Caffeine 325-50-40 Mg Tablet (Fioricet) PO 1 tab BID PRN Administration pain 4-6 Alprazolam 0.25 mg 05/23/24 09:46 05/29/24 08:23 Alprazolam (*Crx) 0.25 Mg Tablet PO 0.25 mg TID PRN Administration Anxiety Amitriptyline HCl 75 mg 05/23/24 21:00 05/28/24 20:26 Amitriptyline Hcl 25 Mg Tablet PO 75 mg HS GEOVANNI Administration Gabapentin 600 mg 05/23/24 09:00 05/29/24 08:23 Gabapentin 300 Mg Capsule PO 600 mg TID GEOVANNI Administration Guaifenesin 600 mg 05/28/24 10:20 05/29/24 08:23 Guaifenesin 12 Hr 600 Mg Tabcr PO 06/04/24 10:19 600 mg Q12HR GEOVANNI Administration Piperacillin/Tazobactam/Dextrose 3.375 gm in 50 mls @ 100 mls/hr 05/23/24 00:00 05/29/24 05:53 Zosyn 3.375 Gm/Ns 50 Ml IVPB Infused Q6H GEOVANNI Infusion Lidocaine 2 patch 05/23/24 09:00 05/29/24 08:23 Lidocaine 5% Patch TRANSDERM 2 patch DAILY GEOVANNI Administration Melatonin 3 mg 05/27/24 11:13 05/28/24 20:26 Melatonin 3 Mg Tablet PO 3 mg HS PRN Administration Insomnia Oxycodone HCl 5 mg 05/22/24 23:37 05/28/24 20:26 Oxycodone Hcl (*Crx) 5 Mg Tab Ir PO 5 mg Q4H PRN Administration pain 7-10 Pantoprazole Sodium 40 mg 05/23/24 09:00 05/29/24 08:23 Pantoprazole 40 Mg Tablet PO 40 mg QAM GEOVANNI Administration Promethazine HCl 25 mg 05/25/24 10:41 05/29/24 08:38 Promethazine Hcl 25 Mg Tablet PO 25 mg Q6H PRN Administration Nausea And Vomiting Radiology Results: ITS Impressions Chest/Abdomen/Pelvis CTA 05/22/24 13:13 IMPRESSION: 1. 1.5 cm spiculated nodule at the lingula concerning for primary bronchogenic carcinoma. If there is no prior outside imaging to confirm long-term stability would recommend further evaluation with CT-guided biopsy. 2. Stranding and wall thickening at the splenic flexure with nodular extension of soft tissue into the pericolonic fat and mild mesenteric lymphadenopathy which is highly concerning for primary colon cancer. Differential would include diverticulitis or focal colitis. Recommend colonoscopy for further evaluation. Lung Biopsy CT 05/26/24 17:23 IMPRESSION: 1. Technically successful CT-guided core biopsy of a 13 mm suspicious lung lesion within the left upper lobe. No immediate complications were encountered. Pathology is pending. Chest X-Ray 05/26/24 18:52 IMPRESSION: 1. Nodule in left midlung zone suspicious for primary bronchogenic carcinoma and postbiopsy hemorrhage. 2. Mild atelectasis at left lung base. Labs Labs: Laboratory Results - last 24 hr 05/29/24 05:51 WBC 7.9 RBC 3.42 L Hgb 7.6 L Hct 26.6 L MCV 77.8 L MCH 22.2 L MCHC 28.6 L RDW 15.4 H Plt Count 441 H MPV 10.4 Immature Gran % (Auto) 0.4 Neut % (Auto) 50.6 Lymph % (Auto) 37.3 [place] % (Auto) 6.9 Eos % (Auto) 4.3 Baso % (Auto) 0.5 Lymph # (Auto) 2.96 [place] # (Auto) 0.6 Eos # (Auto) 0.3 Baso # (Auto) 0.0 Abs Immat Gran (auto) 0.03 Absolute Neuts (auto) 4.0 Absolute Nucleated RBC 0.000 Nucleated RBC % 0.0 Platelet Estimate Increased Hypochromasia 1+ Anisocytosis 1+ Schistocytes None seen Sodium 139 Potassium 4.1 Chloride 104 Carbon Dioxide 24 Anion Gap 11 BUN 17 Creatinine 0.63 L Estim Creat Clear Calc 72 Estimated GFR > 60 Glucose 89 Calcium 9.2 Total Bilirubin 0.3 AST 19 ALT 12 Alkaline Phosphatase 110 Total Protein 7.0 Albumin 3.6 Quality VTE Prophylaxis VTE prophylaxis: pharmacologic ordered
--- NOTE | 2024-05-29 11:17 | PM.PNGS ---
Progress Note: A&P Assessment and Plan (1) Colonic mass: Code(s): K63.89 - Other specified diseases of intestine Status: Acute Assessment and Plan: Exam cont to be benign. She is tolerating low fiber diet and bowels are functioning. Colonoscopy biopsies pending, await path. (2) Lung mass: Code(s): R91.8 - Other nonspecific abnormal finding of lung field Status: Acute Assessment and Plan: S/p lung biopsy 05/26/24, await path Plan I have discussed the patient's case and plan of care with Dr. Key. Subjective Subjective Date/Time Seen: 05/29/24 11:17 Patient reports: no new complaints, tolerating a regular diet, flatus and bowel movement Interval history: Chart reviewed. No significant new changes or complaints over the weekend. Her chronic nausea and right-sided abdominal pain is tolerable and unchanged. She is moving her bowels and tolerating a low fiber diet. Exam Const: General: comfortable and no acute distress GI: Inspection: non-distended GI Palp: Yes Soft to palpation, Yes Tenderness to palpation present (GI) (RUQ, RLQ, mild), No Guarding due to palpation present (GI) and No Rebound tenderness present Auscultation: normal bowel sounds Objective Data Vital Signs Vital Signs: Vital Signs - 24 hr 05/28/24 12:00 05/28/24 14:59 05/28/24 16:00 Temperature 97.0 F L Pulse Rate 107 H 102 H 114 H Respiratory Rate 18 Blood Pressure 117/45 L Pulse Oximetry 99 Oxygen Delivery 05/28/24 20:00 05/28/24 20:00 05/28/24 21:49 Temperature 97.8 F Pulse Rate 106 H 104 H Respiratory Rate 18 Blood Pressure 109/53 L Pulse Oximetry 92 Oxygen Delivery Room Air 05/29/24 00:00 05/29/24 04:00 05/29/24 06:00 Temperature 97 F L Pulse Rate 96 85 92 Respiratory Rate 18 Blood Pressure 109/58 L Pulse Oximetry 96 Oxygen Delivery 05/29/24 08:00 Temperature Pulse Rate Respiratory Rate Blood Pressure Pulse Oximetry Oxygen Delivery Room Air Intake/Output Intake/Output: Intake & Output 05/26/24 05/27/24 05/28/24 05/29/24 23:59 23:59 23:59 23:59 Intake Total 1280 1610.0 1500 590 Output Total 2300 911 617 3560 Balance -1020 810.0 900 -1210 Meds/Results Medications: Active Medications Generic Name Dose Route Start Last Admin Trade Name Freq PRN Reason Stop Dose Admin Acetaminophen/Butalbital/Caffeine 1 tab 05/22/24 23:48 05/29/24 05:26 Acetaminophen/Butalbital/Caffeine 325-50-40 Mg Tablet (Fioricet) PO 1 tab BID PRN Administration pain 4-6 Alprazolam 0.25 mg 05/23/24 09:46 05/29/24 08:23 Alprazolam (*Crx) 0.25 Mg Tablet PO 0.25 mg TID PRN Administration Anxiety Amitriptyline HCl 75 mg 05/23/24 21:00 05/28/24 20:26 Amitriptyline Hcl 25 Mg Tablet PO 75 mg HS GEOVANNI Administration Gabapentin 600 mg 05/23/24 09:00 05/29/24 08:23 Gabapentin 300 Mg Capsule PO 600 mg TID GEOVANNI Administration Guaifenesin 600 mg 05/28/24 10:20 05/29/24 08:23 Guaifenesin 12 Hr 600 Mg Tabcr PO 06/04/24 10:19 600 mg Q12HR GEOVANNI Administration Piperacillin/Tazobactam/Dextrose 3.375 gm in 50 mls @ 100 mls/hr 05/23/24 00:00 05/29/24 05:53 Zosyn 3.375 Gm/Ns 50 Ml IVPB Infused Q6H GEOVANNI Infusion Lidocaine 2 patch 05/23/24 09:00 05/29/24 08:23 Lidocaine 5% Patch TRANSDERM 2 patch DAILY GEOVANNI Administration Melatonin 3 mg 05/27/24 11:13 05/28/24 20:26 Melatonin 3 Mg Tablet PO 3 mg HS PRN Administration Insomnia Oxycodone HCl 5 mg 05/22/24 23:37 05/28/24 20:26 Oxycodone Hcl (*Crx) 5 Mg Tab Ir PO 5 mg Q4H PRN Administration pain 7-10 Pantoprazole Sodium 40 mg 05/23/24 09:00 05/29/24 08:23 Pantoprazole 40 Mg Tablet PO 40 mg QAM GEOVANNI Administration Promethazine HCl 25 mg 05/25/24 10:41 05/29/24 08:38 Promethazine Hcl 25 Mg Tablet PO 25 mg Q6H PRN Administration Nausea And Vomiting Radiology Results: ITS Impressions Chest/Abdomen/Pelvis CTA 05/22/24 13:13 IMPRESSION: 1. 1.5 cm spiculated nodule at the lingula concerning for primary bronchogenic carcinoma. If there is no prior outside imaging to confirm long-term stability would recommend further evaluation with CT-guided biopsy. 2. Stranding and wall thickening at the splenic flexure with nodular extension of soft tissue into the pericolonic fat and mild mesenteric lymphadenopathy which is highly concerning for primary colon cancer. Differential would include diverticulitis or focal colitis. Recommend colonoscopy for further evaluation. Lung Biopsy CT 05/26/24 17:23 IMPRESSION: 1. Technically successful CT-guided core biopsy of a 13 mm suspicious lung lesion within the left upper lobe. No immediate complications were encountered. Pathology is pending. Chest X-Ray 05/26/24 18:52 IMPRESSION: 1. Nodule in left midlung zone suspicious for primary bronchogenic carcinoma and postbiopsy hemorrhage. 2. Mild atelectasis at left lung base. Labs Labs: Laboratory Results - last 24 hr 05/29/24 05:51 WBC 7.9 RBC 3.42 L Hgb 7.6 L Hct 26.6 L MCV 77.8 L MCH 22.2 L MCHC 28.6 L RDW 15.4 H Plt Count 441 H MPV 10.4 Immature Gran % (Auto) 0.4 Neut % (Auto) 50.6 Lymph % (Auto) 37.3 [place] % (Auto) 6.9 Eos % (Auto) 4.3 Baso % (Auto) 0.5 Lymph # (Auto) 2.96 [place] # (Auto) 0.6 Eos # (Auto) 0.3 Baso # (Auto) 0.0 Abs Immat Gran (auto) 0.03 Absolute Neuts (auto) 4.0 Absolute Nucleated RBC 0.000 Nucleated RBC % 0.0 Platelet Estimate Increased Hypochromasia 1+ Anisocytosis 1+ Schistocytes None seen Sodium 139 Potassium 4.1 Chloride 104 Carbon Dioxide 24 Anion Gap 11 BUN 17 Creatinine 0.63 L Estim Creat Clear Calc 72 Estimated GFR > 60 Glucose 89 Calcium 9.2 Total Bilirubin 0.3 AST 19 ALT 12 Alkaline Phosphatase 110 Total Protein 7.0 Albumin 3.6
[2024-05-29] MEDS: oxyCODONE HCL (*CRX) 5 MG TAB IR PO ×2 (12:35→20:06)
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
[2024-05-29] MEDS: AMOXICILLIN/CLAVULANATE K 875-125 MG TAB 1 TABLET PO (16:19)
[2024-05-29] MEDS: AMITRIPTYLINE HCL 25 MG TABLET 75 MG PO (20:06)
[2024-05-29] MEDS: MELATONIN 3 MG TABLET PO (20:06)
[2024-05-30] VITALS (9 sets, daily range): BP systolic 117–139; BP diastolic 53–76; PULSE 96–119; RESP 16; TEMP 36.4–36.6; O2SAT 94–97
[2024-05-30] MEDS: oxyCODONE HCL (*CRX) 5 MG TAB IR PO ×3 (05:39→21:01)
[2024-05-30] MEDS: AMOXICILLIN/CLAVULANATE K 875-125 MG TAB 1 TABLET PO ×2 (05:39→17:11)
[2024-05-30] MEDS: PROMETHAZINE HCL 25 MG TABLET PO ×3 (05:39→21:00)
[2024-05-30 05:51] LABS: Basophils Percent Auto 0.4 % (0.2-1.2); Eosinophils Absolute Auto 0.4 K/mm3 (0-0.3); Eosinophils Percent Auto 3.8 % (0-4.4); Hematocrit 31.2 % (37.0-47.0); Hemoglobin 8.8 g/dL (12.0-15.0); Immature Granulocyte Absolute 0.04 K/mm3 (0.00-0.031); Immature Granulocyte Percent A 0.4 % (0-0.5); Lymphocytes Absolute Auto 2.61 K/mm3 (0.9-3.2); Lymphocytes Percent Auto 24.6 % (18.3-44.2); Mean Corpuscular HGB Conc 28.2 g/dl (32-36); Mean Corpuscular Hemoglobin 22.1 pg (26-34); Mean Corpuscular Volume 78.4 fl (80-100); Mean Platelet Volume 10.3 fl (7.4-10.4); Monocytes Absolute Auto 0.7 K/mm3 (0.1-0.6); Monocytes Percent Auto 6.7 % (2.6-8.5); Neutrophils Absolute Auto 6.8 K/mm3 (1.3-6.7); Neutrophils Percent Auto 64.1 % (45.5-73.1); Platelet Count Result 473 k/mm3 (150-375); Red Blood Count 3.98 M/mm3 (4.2-5.4); Red Cell Distribution Width 15.5 % (11.5-14.5); White Blood Count 10.6 K/mm3 (4.5-10.0)
[2024-05-30 06:12] LABS: Alanine Aminotransferase 13 U/L (6-35); Albumin Level 3.8 g/dL (3.5-5.1); Alkaline Phosphatase 120 U/L (38-126); Anion Gap 12 mmol/L (4-12); Aspartate Amino Transferase 19 U/L (14-36); Bilirubin,Total 0.3 mg/dL (0.2-1.3); Blood Urea Nitrogen 20 mg/dL (7-17); Calcium 8.9 mg/dL (8.4-10.2); Carbon Dioxide 23 mmol/L (22-30); Chloride 103 mmol/L (98-107); Estimated CRCL calculation 70 ml/min; Estimated Glomerular Filt Rate > 60; Glucose 94 mg/dL (65-110); Sodium 138 mmol/L (137-145)
[2024-05-30 07:01] LABS: Anisocytosis 1+; Hypochromasia 1+; Platelet Estimate Increased (Adequate); Schistocytes None Seen
[2024-05-30] MEDS: GABAPENTIN 300 MG CAPSULE 600 MG PO ×3 (09:06→17:11)
[2024-05-30] MEDS: LIDOCAINE 5% PATCH 2 PATCH TRANSDERM (09:06)
[2024-05-30] MEDS: PANTOPRAZOLE 40 MG TABLET PO (09:06)
[2024-05-30] MEDS: guaiFENesin 12 HR 600 MG TABCR PO ×2 (09:06→21:00)
[2024-05-30] MEDS: ALPRAZolam (*CRX) 0.25 MG TABLET PO ×2 (09:10→17:14)
[2024-05-30 10:04] LABS: Magnesium 1.9 mg/dL (1.6-2.3)
--- NOTE | 2024-05-30 11:50 | P.PNIM_ITS ---
Progress Note: A&P Assessment and Plan (1) Colitis: Code(s): K52.9 - Noninfective gastroenteritis and colitis, unspecified Status: Acute Assessment and Plan: * Continue Zosyn for presumed possibility of infection in the colon as noted per CTA of abdomen and pelvis demonstrating a differential of possible diverticulitis or focal colitis aside from concern of potential primary colon cancer. * Continue Protonix * Monitor labs and trend vitals. * Colonscopy on 05/24/24 showed: near-occlusive left colonic mass, malignant aspect. She needs urgent surgery evaluation, consult placed. * Tolerating a low fiber diet. (2) Colonic mass: Code(s): K63.89 - Other specified diseases of intestine Status: Acute Assessment and Plan: * As evidenced by CTA chest abdomen and pelvis. * Carcinoembryonic Ag level 4.5. * Colonoscopy 05/24/24 showed: near-occlusive left colonic mass, malignant aspect. She needs urgent surgery evaluation, consult placed. Keep the patient on clear liquids for now and hold Eliquis. * General surgery consult. Per surgery note 05/25/24: colonoscopic report reviewed, likely c colon cancer, ? stage 4 given noted lung mass, exam cont to benign, +bowel fxn and currently sandeep clears, will get oncology to see re: poss neoadjuvant chemotherapy, will likely need PET and bx of lung mass * Oncology consult, appreciate recommendations. * Per oncology: CT scan reviewed. Sigmoidoscopy showed malignant appearing colon mass and the descending colon. Pathology is pending. CEA slightly elevated at 4.5. Further management will be based on the pathology report from the sigmoidoscopy. Decision was made to proceed with CT-guided biopsy of the lung mass pending pathology from sigmoidoscopy. I have provided her my office information for follow-up. * Pathology report showed adenocarcinoma. (3) Cancer: Code(s): C80.1 - Malignant (primary) neoplasm, unspecified Status: Acute Assessment and Plan: * Awaiting General surgery and pulmonology consult, appreciate recommendations. * Patient had been previously made aware of the potential of a metastatic process during hospitalization at [facility] in March. She had not yet followed up. She had a reported Oncology appointment scheduled for yesterday. (4) Sepsis: Code(s): A41.9 - Sepsis, unspecified organism Status: Resolved Assessment and Plan: Upon presentation to emergency room Continue to monitor Early goal-directed therapy in progress 05/23/24: * Resolved. No longer meeting sepsis criteria. 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 HOLD for now for surgery consultation for colonic mass. (6) Lung mass: Code(s): R91.8 - Other nonspecific abnormal finding of lung field Status: Acute Assessment and Plan: * Pulmonology consult, appreciate recommendations. * Incidental left spiculated nodule 1.5 cm which has been present since Feb 2024, (+) PET at [facility] She had a follow up visit scheduled for today at [facility] with out patient radiation oncology however missed appt due to having abdominal pain, admitted @ [place] May 22. * Per [facility]ist Dr. Ro plan: Main issue now is her near-obstructing colon mass; she has a lung mass that appears to be a lung primary. The prior CT scans in Jan and twice in Mar at [facility] did not describe a colon mass. The PET scan 03/24/24 at [facility] showed uptake in the lung nodule but not anywhere else, nothing in the colon. I have not looked at images from [facility]. It is unlikely that she has a colon primary malignancy with a metastatic lesion to the lung. I reviewed reports in 2 inches of medical records. I spoke with Tabitha Quan APN, shared abd-pelvis report from [facility] 04/08/24. * Lung biopsy done on 05/26/2024. Per pulmonology this nodule is highly likely to be the lung cancer primary. * Awaiting pathology report. (7) Headache: Code(s): R51.9 - Headache, unspecified Status: Acute Assessment and Plan: * Fiorcet 1 tab PO BID PRN (8) Nausea: Code(s): R11.0 - Nausea Status: Acute Assessment and Plan: * Phenergan 25 mg PO q 6 PRN. Subjective Date/time seen: 05/30/24 11:50 Interval history: Patient reports pain in head and RUQ is an 8 , constant, and aching. Patient denies chest pain, palpitations, vomiting, or dizziness. Patient reports nausea at times. Review of Systems Review of Systems: All systems reviewed & are unremarkable except as noted in HPI and below Exam Const: General: no acute distress and uncomfortable Resp: Effort & Inspection: normal respiratory effort Auscultation: clear to auscultation bilaterally Cardio: Rate: regular rate Rhythm: regular rhythm GI: GI Palp: Yes Soft to palpation Auscultation: normal bowel sounds Neuro: Speech: normal speech Extrem: General: no pedal edema Psych: Mental Status: mental status grossly normal Affect: normal affect Objective Data Vital Signs Vital Signs: Vital Signs - 24 hr 05/29/24 12:00 05/29/24 14:00 05/29/24 16:00 Temperature 98.5 F Pulse Rate 105 H 109 H 102 H Respiratory Rate 18 Blood Pressure 96/55 L Pulse Oximetry 93 Oxygen Delivery 05/29/24 20:00 05/29/24 20:00 05/29/24 22:00 Temperature 97.1 F L Pulse Rate 111 H 111 H Respiratory Rate 18 Blood Pressure 106/40 L Pulse Oximetry 96 Oxygen Delivery Room Air 05/30/24 00:00 05/30/24 04:00 05/30/24 06:00 Temperature 97.9 F Pulse Rate 99 104 H 100 Respiratory Rate 16 Blood Pressure 127/64 Pulse Oximetry 95 Oxygen Delivery 05/30/24 08:00 Temperature Pulse Rate Respiratory Rate Blood Pressure Pulse Oximetry Oxygen Delivery Room Air Intake/Output Intake/Output: Intake & Output 05/27/24 05/28/24 05/29/24 05/30/24 23:59 23:59 23:59 23:59 Intake Total 1610.0 1500 1190 937 Output Total 653 013 3930 2025 Balance 810.0 900 1412 -1088 Meds/Results Medications: Active Medications Generic Name Dose Route Start Last Admin Trade Name Freq PRN Reason Stop Dose Admin Acetaminophen/Butalbital/Caffeine 1 tab 05/22/24 23:48 05/29/24 05:26 Acetaminophen/Butalbital/Caffeine 325-50-40 Mg Tablet (Fioricet) PO 1 tab BID PRN Administration pain 4-6 Alprazolam 0.25 mg 05/23/24 09:46 05/30/24 09:10 Alprazolam (*Crx) 0.25 Mg Tablet PO 0.25 mg TID PRN Administration Anxiety Amitriptyline HCl 75 mg 05/23/24 21:00 05/29/24 20:06 Amitriptyline Hcl 25 Mg Tablet PO 75 mg HS GEOVANNI Administration Amoxicillin/Clavulanate Potassium 1 tablet 05/29/24 18:00 05/30/24 05:39 Amoxicillin/Clavulanate K 875-125 Mg Tab PO 06/01/24 18:01 1 tablet Q12H GEOVANNI Administration Gabapentin 600 mg 05/23/24 09:00 05/30/24 09:06 Gabapentin 300 Mg Capsule PO 600 mg TID GEOVANNI Administration Guaifenesin 600 mg 05/28/24 10:20 05/30/24 09:06 Guaifenesin 12 Hr 600 Mg Tabcr PO 06/04/24 10:19 600 mg Q12HR GEOVANNI Administration Lidocaine 2 patch 05/23/24 09:00 05/30/24 09:06 Lidocaine 5% Patch TRANSDERM 2 patch DAILY GEOVANNI Administration Melatonin 3 mg 05/27/24 11:13 05/29/24 20:06 Melatonin 3 Mg Tablet PO 3 mg HS PRN Administration Insomnia Oxycodone HCl 5 mg 05/22/24 23:37 05/30/24 05:39 Oxycodone Hcl (*Crx) 5 Mg Tab Ir PO 5 mg Q4H PRN Administration pain 7-10 Pantoprazole Sodium 40 mg 05/23/24 09:00 05/30/24 09:06 Pantoprazole 40 Mg Tablet PO 40 mg QAM GEOVANNI Administration Promethazine HCl 25 mg 05/25/24 10:41 05/30/24 05:39 Promethazine Hcl 25 Mg Tablet PO 25 mg Q6H PRN Administration Nausea And Vomiting Radiology Results: ITS Impressions Chest/Abdomen/Pelvis CTA 05/22/24 13:13 IMPRESSION: 1. 1.5 cm spiculated nodule at the lingula concerning for primary bronchogenic carcinoma. If there is no prior outside imaging to confirm long-term stability would recommend further evaluation with CT-guided biopsy. 2. Stranding and wall thickening at the splenic flexure with nodular extension of soft tissue into the pericolonic fat and mild mesenteric lymphadenopathy which is highly concerning for primary colon cancer. Differential would include diverticulitis or focal colitis. Recommend colonoscopy for further evaluation. Lung Biopsy CT 05/26/24 17:23 IMPRESSION: 1. Technically successful CT-guided core biopsy of a 13 mm suspicious lung lesion within the left upper lobe. No immediate complications were encountered. Pathology is pending. Chest X-Ray 05/26/24 18:52 IMPRESSION: 1. Nodule in left midlung zone suspicious for primary bronchogenic carcinoma and postbiopsy hemorrhage. 2. Mild atelectasis at left lung base. Labs Labs: Laboratory Results - last 24 hr 05/30/24 05/30/24 05:29 05:32 WBC 10.6 H RBC 3.98 L Hgb 8.8 L Hct 31.2 L MCV 78.4 L MCH 22.1 L MCHC 28.2 L RDW 15.5 H Plt Count 473 H MPV 10.3 Immature Gran % (Auto) 0.4 Neut % (Auto) 64.1 Lymph % (Auto) 24.6 [place] % (Auto) 6.7 Eos % (Auto) 3.8 Baso % (Auto) 0.4 Lymph # (Auto) 2.61 [place] # (Auto) 0.7 H Eos # (Auto) 0.4 H Baso # (Auto) 0.0 Abs Immat Gran (auto) 0.04 H Absolute Neuts (auto) 6.8 H Absolute Nucleated RBC 0.000 Nucleated RBC % 0.0 Platelet Estimate Increased Hypochromasia 1+ Anisocytosis 1+ Schistocytes None seen Sodium 138 Potassium 4.0 Chloride 103 Carbon Dioxide 23 Anion Gap 12 BUN 20 H Creatinine 0.65 L Estim Creat Clear Calc 70 Estimated GFR > 60 Glucose 94 Calcium 8.9 Magnesium 1.9 Total Bilirubin 0.3 AST 19 ALT 13 Alkaline Phosphatase 120 Total Protein 7.0 Albumin 3.8 Quality VTE Prophylaxis VTE prophylaxis: pharmacologic ordered
[2024-05-30] MEDS: ACETAMINOPHEN/BUTALBITAL/CAFFEINE 325-50-40 MG TABLET (FIORICET) 1 TAB PO (12:23)
--- NOTE | 2024-05-30 15:27 | PM.PNGS ---
Progress Note: A&P Assessment and Plan (1) Colonic mass: Code(s): K63.89 - Other specified diseases of intestine Status: Acute Assessment and Plan: She is tolerating low fiber diet and bowels are functioning. Pathology showed adenocarcinoma. Will await pathology on lung biopsy. Patient refusing to go back to the senior living and is planning to go live with a friend in [place], [place] on discharge. She is requesting having further treatment in [place], [place]. I discussed this with care coordination who is working on d/c planning. (2) Lung mass: Code(s): R91.8 - Other nonspecific abnormal finding of lung field Status: Acute Assessment and Plan: S/p lung biopsy 05/26/24, await path Plan I have discussed the patient's case and plan of care with Dr. Key. Subjective Subjective Date/Time Seen: 05/30/24 15:27 Patient reports: no new complaints, tolerating a regular diet, flatus and bowel movement Exam Const: General: comfortable and no acute distress Orientation/consciousness: patient oriented x3 GI: Inspection: non-distended GI Palp: Yes Soft to palpation, Yes Tenderness to palpation present (GI) (RUQ, RLQ, mild), No Guarding due to palpation present (GI) and No Rebound tenderness present Auscultation: normal bowel sounds Objective Data Vital Signs Vital Signs: Vital Signs - 24 hr 05/29/24 16:00 05/29/24 20:00 05/29/24 20:00 Temperature Pulse Rate 102 H 111 H Respiratory Rate Blood Pressure Pulse Oximetry Oxygen Delivery Room Air 05/29/24 22:00 05/30/24 00:00 05/30/24 04:00 Temperature 97.1 F L Pulse Rate 111 H 99 104 H Respiratory Rate 18 Blood Pressure 106/40 L Pulse Oximetry 96 Oxygen Delivery 05/30/24 06:00 05/30/24 08:00 05/30/24 08:00 Temperature 97.9 F Pulse Rate 100 99 Respiratory Rate 16 Blood Pressure 127/64 Pulse Oximetry 95 Oxygen Delivery Room Air 05/30/24 14:00 Temperature 97.6 F Pulse Rate 96 Respiratory Rate 16 Blood Pressure 139/76 Pulse Oximetry 97 Oxygen Delivery Intake/Output Intake/Output: Intake & Output 05/27/24 05/28/24 05/29/24 05/30/24 23:59 23:59 23:59 23:59 Intake Total 1610.0 1500 1190 1174 Output Total 393 991 2252 2425 Balance 810.0 854 -5245 -9077 Meds/Results Medications: Active Medications Generic Name Dose Route Start Last Admin Trade Name Freq PRN Reason Stop Dose Admin Acetaminophen/Butalbital/Caffeine 1 tab 05/22/24 23:48 05/30/24 12:23 Acetaminophen/Butalbital/Caffeine 325-50-40 Mg Tablet (Fioricet) PO 1 tab BID PRN Administration pain 4-6 Alprazolam 0.25 mg 05/23/24 09:46 05/30/24 09:10 Alprazolam (*Crx) 0.25 Mg Tablet PO 0.25 mg TID PRN Administration Anxiety Amitriptyline HCl 75 mg 05/23/24 21:00 05/29/24 20:06 Amitriptyline Hcl 25 Mg Tablet PO 75 mg HS GEOVANNI Administration Amoxicillin/Clavulanate Potassium 1 tablet 05/29/24 18:00 05/30/24 05:39 Amoxicillin/Clavulanate K 875-125 Mg Tab PO 06/01/24 18:01 1 tablet Q12H GEOVANNI Administration Gabapentin 600 mg 05/23/24 09:00 05/30/24 12:20 Gabapentin 300 Mg Capsule PO 600 mg TID GEOVANNI Administration Guaifenesin 600 mg 05/28/24 10:20 05/30/24 09:06 Guaifenesin 12 Hr 600 Mg Tabcr PO 06/04/24 10:19 600 mg Q12HR GEOVANNI Administration Lidocaine 2 patch 05/23/24 09:00 05/30/24 09:06 Lidocaine 5% Patch TRANSDERM 2 patch DAILY GEOVANNI Administration Melatonin 3 mg 05/27/24 11:13 05/29/24 20:06 Melatonin 3 Mg Tablet PO 3 mg HS PRN Administration Insomnia Oxycodone HCl 5 mg 05/22/24 23:37 05/30/24 05:39 Oxycodone Hcl (*Crx) 5 Mg Tab Ir PO 5 mg Q4H PRN Administration pain 7-10 Pantoprazole Sodium 40 mg 05/23/24 09:00 05/30/24 09:06 Pantoprazole 40 Mg Tablet PO 40 mg QAM GEOVANNI Administration Promethazine HCl 25 mg 05/25/24 10:41 05/30/24 12:23 Promethazine Hcl 25 Mg Tablet PO 25 mg Q6H PRN Administration Nausea And Vomiting Radiology Results: ITS Impressions Chest/Abdomen/Pelvis CTA 05/22/24 13:13 IMPRESSION: 1. 1.5 cm spiculated nodule at the lingula concerning for primary bronchogenic carcinoma. If there is no prior outside imaging to confirm long-term stability would recommend further evaluation with CT-guided biopsy. 2. Stranding and wall thickening at the splenic flexure with nodular extension of soft tissue into the pericolonic fat and mild mesenteric lymphadenopathy which is highly concerning for primary colon cancer. Differential would include diverticulitis or focal colitis. Recommend colonoscopy for further evaluation. Lung Biopsy CT 05/26/24 17:23 IMPRESSION: 1. Technically successful CT-guided core biopsy of a 13 mm suspicious lung lesion within the left upper lobe. No immediate complications were encountered. Pathology is pending. Chest X-Ray 05/26/24 18:52 IMPRESSION: 1. Nodule in left midlung zone suspicious for primary bronchogenic carcinoma and postbiopsy hemorrhage. 2. Mild atelectasis at left lung base. Labs Labs: Laboratory Results - last 24 hr 05/30/24 05/30/24 05:29 05:32 WBC 10.6 H RBC 3.98 L Hgb 8.8 L Hct 31.2 L MCV 78.4 L MCH 22.1 L MCHC 28.2 L RDW 15.5 H Plt Count 473 H MPV 10.3 Immature Gran % (Auto) 0.4 Neut % (Auto) 64.1 Lymph % (Auto) 24.6 [place] % (Auto) 6.7 Eos % (Auto) 3.8 Baso % (Auto) 0.4 Lymph # (Auto) 2.61 [place] # (Auto) 0.7 H Eos # (Auto) 0.4 H Baso # (Auto) 0.0 Abs Immat Gran (auto) 0.04 H Absolute Neuts (auto) 6.8 H Absolute Nucleated RBC 0.000 Nucleated RBC % 0.0 Platelet Estimate Increased Hypochromasia 1+ Anisocytosis 1+ Schistocytes None seen Sodium 138 Potassium 4.0 Chloride 103 Carbon Dioxide 23 Anion Gap 12 BUN 20 H Creatinine 0.65 L Estim Creat Clear Calc 70 Estimated GFR > 60 Glucose 94 Calcium 8.9 Magnesium 1.9 Total Bilirubin 0.3 AST 19 ALT 13 Alkaline Phosphatase 120 Total Protein 7.0 Albumin 3.8
[2024-05-30] MEDS: AMITRIPTYLINE HCL 25 MG TABLET 75 MG PO (21:01)
[2024-05-30] MEDS: MELATONIN 3 MG TABLET PO (21:01)
[2024-05-31] VITALS: PULSE 118
[2024-05-31 04:00] VITALS: PULSE 112
[2024-05-31 06:00] VITALS: BP 115/68; PULSE 110; RESP 16; TEMP 36.3; O2SAT 95
[2024-05-31] MEDS: AMOXICILLIN/CLAVULANATE K 875-125 MG TAB 1 TABLET PO ×2 (06:16→16:52)
[2024-05-31] MEDS: ACETAMINOPHEN/BUTALBITAL/CAFFEINE 325-50-40 MG TABLET (FIORICET) 1 TAB PO (06:16)
[2024-05-31] MEDS: PROMETHAZINE HCL 25 MG TABLET PO ×2 (06:16→16:52)
[2024-05-31 06:35] LABS: Basophils Percent Auto 0.4 % (0.2-1.2); Eosinophils Absolute Auto 0.3 K/mm3 (0-0.3); Eosinophils Percent Auto 2.4 % (0-4.4); Hematocrit 29.1 % (37.0-47.0); Hemoglobin 8.6 g/dL (12.0-15.0); Immature Granulocyte Absolute 0.04 K/mm3 (0.00-0.031); Immature Granulocyte Percent A 0.4 % (0-0.5); Lymphocytes Absolute Auto 3.05 K/mm3 (0.9-3.2); Lymphocytes Percent Auto 27.3 % (18.3-44.2); Mean Corpuscular HGB Conc 29.6 g/dl (32-36); Mean Corpuscular Hemoglobin 22.6 pg (26-34); Mean Corpuscular Volume 76.4 fl (80-100); Mean Platelet Volume 10.3 fl (7.4-10.4); Monocytes Percent Auto 8.9 % (2.6-8.5); Neutrophils Absolute Auto 6.8 K/mm3 (1.3-6.7); Neutrophils Percent Auto 60.6 % (45.5-73.1); Platelet Count Result 489 k/mm3 (150-375); Red Blood Count 3.81 M/mm3 (4.2-5.4); Red Cell Distribution Width 15.7 % (11.5-14.5); White Blood Count 11.2 K/mm3 (4.5-10.0)
[2024-05-31 07:00] LABS: Alanine Aminotransferase 13 U/L (6-35); Albumin Level 3.7 g/dL (3.5-5.1); Alkaline Phosphatase 128 U/L (38-126); Anion Gap 11 mmol/L (4-12); Aspartate Amino Transferase 16 U/L (14-36); Bilirubin,Total 0.3 mg/dL (0.2-1.3); Blood Urea Nitrogen 14 mg/dL (7-17); Calcium 9.2 mg/dL (8.4-10.2); Carbon Dioxide 24 mmol/L (22-30); Chloride 102 mmol/L (98-107); Estimated CRCL calculation 70 ml/min; Estimated Glomerular Filt Rate > 60; Glucose 97 mg/dL (65-110); Potassium 4.2 mmol/L (3.4-5.0); Sodium 137 mmol/L (137-145)
[2024-05-31 07:09] LABS: Hypochromasia 1+; Platelet Estimate Increased (Adequate)
[2024-05-31 07:10] LABS: Anisocytosis 1+; Schistocytes Rare
[2024-05-31 08:05] VITALS: PULSE 103
[2024-05-31] MEDS: GABAPENTIN 300 MG CAPSULE 600 MG PO ×3 (08:19→16:51)
[2024-05-31] MEDS: guaiFENesin 12 HR 600 MG TABCR PO (08:19)
[2024-05-31] MEDS: LIDOCAINE 5% PATCH 2 PATCH TRANSDERM (08:20)
[2024-05-31] MEDS: PANTOPRAZOLE 40 MG TABLET PO (08:20)
--- NOTE | 2024-05-31 10:56 | P.PNGS_ITS ---
Progress Note: A&P Assessment and Plan (1) Colon cancer: Code(s): C18.9 - Malignant neoplasm of colon, unspecified Status: Acute Assessment and Plan: no s/s obstruction, exam largely benign and sandeep diet, no indication for acute surgical intervention as it will delay chemotherapy in the setting of 2 primary cancers, will s/o, call c ?s, issues (2) Lung cancer: Code(s): C34.90 - Malignant neoplasm of unspecified part of unspecified bronchus or lung Status: Acute Assessment and Plan: see above, may need port Subjective Subjective Date/Time Seen: 05/31/24 10:56 Interval history: no acute issues, sandeep diet, +bowel fxn Review of Systems Review of Systems: All systems reviewed & are unremarkable except as noted in HPI and below Exam Const: General: cooperative, comfortable and no acute distress Resp: Auscultation: clear to auscultation bilaterally Cardio: Rate: regular rate Rhythm: regular rhythm GI: Inspection: normal to inspection and non-distended GI Palp: No abdominal tenderness and Yes Soft to palpation Objective Data Vital Signs Vital Signs: Vital Signs - 24 hr 05/30/24 12:00 05/30/24 14:00 05/30/24 16:00 Temperature 36.4 C Pulse Rate 117 H 96 119 H Respiratory Rate 16 Blood Pressure 139/76 Pulse Oximetry 97 Oxygen Delivery 05/30/24 20:00 05/30/24 20:00 05/30/24 22:18 Temperature 36.5 C Pulse Rate 110 H 111 H Respiratory Rate 16 Blood Pressure 117/53 L Pulse Oximetry 94 Oxygen Delivery Room Air 05/31/24 00:00 05/31/24 04:00 05/31/24 06:00 Temperature 36.3 C L Pulse Rate 118 H 112 H 110 H Respiratory Rate 16 Blood Pressure 115/68 Pulse Oximetry 95 Oxygen Delivery Intake/Output Intake/Output: Intake & Output 05/28/24 05/29/24 05/30/24 05/31/24 23:59 23:59 23:59 23:59 Intake Total 1500 1190 2160 736 Output Total 600 2600 3425 1650 Balance 900 -1411 -1265 -914 Meds/Results Medications: Active Medications Generic Name Dose Route Start Last Admin Trade Name Freq PRN Reason Stop Dose Admin Acetaminophen/Butalbital/Caffeine 1 tab 05/22/24 23:48 05/31/24 06:16 Acetaminophen/Butalbital/Caffeine 325-50-40 Mg Tablet (Fioricet) PO 1 tab BID PRN Administration pain 4-6 Alprazolam 0.25 mg 05/23/24 09:46 05/30/24 17:14 Alprazolam (*Crx) 0.25 Mg Tablet PO 0.25 mg TID PRN Administration Anxiety Amitriptyline HCl 75 mg 05/23/24 21:00 05/30/24 21:01 Amitriptyline Hcl 25 Mg Tablet PO 75 mg HS GEOVANNI Administration Amoxicillin/Clavulanate Potassium 1 tablet 05/29/24 18:00 05/31/24 06:16 Amoxicillin/Clavulanate K 875-125 Mg Tab PO 06/01/24 18:01 1 tablet Q12H GEOVANNI Administration Gabapentin 600 mg 05/23/24 09:00 05/31/24 08:19 Gabapentin 300 Mg Capsule PO 600 mg TID GEOVANNI Administration Guaifenesin 600 mg 05/28/24 10:20 05/31/24 08:19 Guaifenesin 12 Hr 600 Mg Tabcr PO 06/04/24 10:19 600 mg Q12HR GEOVANNI Administration Lidocaine 2 patch 05/23/24 09:00 05/31/24 08:20 Lidocaine 5% Patch TRANSDERM 2 patch DAILY GEOVANNI Administration Melatonin 3 mg 05/27/24 11:13 05/30/24 21:01 Melatonin 3 Mg Tablet PO 3 mg HS PRN Administration Insomnia Oxycodone HCl 5 mg 05/22/24 23:37 05/30/24 21:01 Oxycodone Hcl (*Crx) 5 Mg Tab Ir PO 5 mg Q4H PRN Administration pain 7-10 Pantoprazole Sodium 40 mg 05/23/24 09:00 05/31/24 08:20 Pantoprazole 40 Mg Tablet PO 40 mg QAM GEOVANNI Administration Promethazine HCl 25 mg 05/25/24 10:41 05/31/24 06:16 Promethazine Hcl 25 Mg Tablet PO 25 mg Q6H PRN Administration Nausea And Vomiting Radiology Results: ITS Impressions Chest/Abdomen/Pelvis CTA 05/22/24 13:13 IMPRESSION: 1. 1.5 cm spiculated nodule at the lingula concerning for primary bronchogenic carcinoma. If there is no prior outside imaging to confirm long-term stability would recommend further evaluation with CT-guided biopsy. 2. Stranding and wall thickening at the splenic flexure with nodular extension of soft tissue into the pericolonic fat and mild mesenteric lymphadenopathy which is highly concerning for primary colon cancer. Differential would include diverticulitis or focal colitis. Recommend colonoscopy for further evaluation. Lung Biopsy CT 05/26/24 17:23 IMPRESSION: 1. Technically successful CT-guided core biopsy of a 13 mm suspicious lung lesion within the left upper lobe. No immediate complications were encountered. Pathology is pending. Chest X-Ray 05/26/24 18:52 IMPRESSION: 1. Nodule in left midlung zone suspicious for primary bronchogenic carcinoma and postbiopsy hemorrhage. 2. Mild atelectasis at left lung base. Labs Labs: Laboratory Results - last 24 hr 05/31/24 06:15 WBC 11.2 H RBC 3.81 L Hgb 8.6 L Hct 29.1 L MCV 76.4 L MCH 22.6 L MCHC 29.6 L RDW 15.7 H Plt Count 489 H MPV 10.3 Immature Gran % (Auto) 0.4 Neut % (Auto) 60.6 Lymph % (Auto) 27.3 [place] % (Auto) 8.9 H Eos % (Auto) 2.4 Baso % (Auto) 0.4 Lymph # (Auto) 3.05 [place] # (Auto) 1.0 H Eos # (Auto) 0.3 Baso # (Auto) 0.0 Abs Immat Gran (auto) 0.04 H Absolute Neuts (auto) 6.8 H Absolute Nucleated RBC 0.000 Nucleated RBC % 0.0 Platelet Estimate Increased Hypochromasia 1+ Anisocytosis 1+ Schistocytes Rare Sodium 137 Potassium 4.2 Chloride 102 Carbon Dioxide 24 Anion Gap 11 BUN 14 D Creatinine 0.65 L Estim Creat Clear Calc 70 Estimated GFR > 60 Glucose 97 Calcium 9.2 Total Bilirubin 0.3 AST 16 ALT 13 Alkaline Phosphatase 128 H Total Protein 7.0 Albumin 3.7
[2024-05-31] MEDS: oxyCODONE HCL (*CRX) 5 MG TAB IR PO (11:52)
[2024-05-31 12:05] VITALS: PULSE 105
--- NOTE | 2024-05-31 13:37 | P.DS_ITS ---
DS: Admitting Diagnosis Discharge Date 05/31/24 Admitting Diagnosis Colitis, Colonic Mass, Cancer, Sepsis DS: Discharge Diagnosis Discharge Diagnosis (1) Colitis: Code(s): K52.9 - Noninfective gastroenteritis and colitis, unspecified Status: Acute Assessment and Plan: * Continue Zosyn for presumed possibility of infection in the colon as noted per CTA of abdomen and pelvis demonstrating a differential of possible diverticulitis or focal colitis aside from concern of potential primary colon cancer. * Continue Protonix * Monitor labs and trend vitals. * Colonscopy on 05/24/24 showed: near-occlusive left colonic mass, malignant aspect. She needs urgent surgery evaluation, consult placed. * Tolerating a low fiber diet. 05/31/24: * Pt has been switched to oral abx of Augmentin 875 mg BID through 2/6 PM dose. Will need three doses for discharge. * Tolerating diet * Has been consulted on by surgery and no intervention needed at this time. (2) Colonic mass: Code(s): K63.89 - Other specified diseases of intestine Status: Acute Assessment and Plan: * As evidenced by CTA chest abdomen and pelvis. * Carcinoembryonic Ag level 4.5. * Colonoscopy 05/24/24 showed: near-occlusive left colonic mass, malignant aspect. She needs urgent surgery evaluation, consult placed. Keep the patient on clear liquids for now and hold Eliquis. * General surgery consult. Per surgery note 05/25/24: colonoscopic report reviewed, likely c colon cancer, ? stage 4 given noted lung mass, exam cont to benign, +bowel fxn and currently sandeep clears, will get oncology to see re: poss neoadjuvant chemotherapy, will likely need PET and bx of lung mass * Oncology consult, appreciate recommendations. * Per oncology: CT scan reviewed. Sigmoidoscopy showed malignant appearing colon mass and the descending colon. Pathology is pending. CEA slightly elevated at 4.5. Further management will be based on the pathology report from the sigmoidoscopy. Decision was made to proceed with CT-guided biopsy of the lung mass pending pathology from sigmoidoscopy. I have provided her my office information for follow-up. * Pathology report showed adenocarcinoma. 05/31/24: * Stable for discharge today. Pt is adamant that she will not follow up with any Oncologist here, she will wait until she can get to [facility] to do so as that is where she is moving. The staff at [facility] are aware and she states they will help her get it set up. She was offered Oncology referral here and declines. (3) Cancer: Code(s): C80.1 - Malignant (primary) neoplasm, unspecified Status: Acute Assessment and Plan: * Awaiting General surgery and pulmonology consult, appreciate recommendations. * Patient had been previously made aware of the potential of a metastatic process during hospitalization at [facility] in March. She had not yet followed up. She had a reported Oncology appointment scheduled for yesterday. 05/31/24: * Stable for discharge today. * Also second mass noted in lung, currently awaiting biopsy. * No surgical intervention at this time per surgery as pt needs Oncology evaluation foremost. * Pt is adamant that she will not follow up with any Oncologist here, she will wait until she can get to [facility] to do so as that is where she is moving. The staff at [facility] are aware and she states they will help her get it set up. (4) Sepsis: Code(s): A41.9 - Sepsis, unspecified organism Status: Resolved Assessment and Plan: Upon presentation to emergency room Continue to monitor Early goal-directed therapy in progress 05/23/24: * Resolved. No longer meeting sepsis criteria. 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 HOLD for now for surgery consultation for colonic mass. 05/31/24: * Resume Eliquis on discharge. (6) Lung mass: Code(s): R91.8 - Other nonspecific abnormal finding of lung field Status: Acute Assessment and Plan: * Pulmonology consult, appreciate recommendations. * Incidental left spiculated nodule 1.5 cm which has been present since Feb 2024, (+) PET at [facility] in [facility] She had a follow up visit scheduled for today at [facility] with out patient radiation oncology however missed appt due to having abdominal pain, admitted @ [place] May 22. * Per Head Of Sales And Marketing Dr. Ro plan: Main issue now is her near-obstructing colon mass; she has a lung mass that appears to be a lung primary. The prior CT scans in Jan and twice in Mar at [facility] did not describe a colon mass. The PET scan 03/24/24 at [facility] showed uptake in the lung nodule but not anywhere else, nothing in the colon. I have not looked at images from [facility]. It is unlikely that she has a colon primary malignancy with a metastatic lesion to the lung. I reviewed reports in 2 inches of medical records. I spoke with Tabitha Quan APN, shared abd-pelvis report from [facility] 04/08/24. * Lung biopsy done on 05/26/2024. Per pulmonology this nodule is highly likely to be the lung cancer primary. * Awaiting pathology report. 05/31/24: * Stable for discharge today. Pt is adamant that she will not follow up with any Oncologist here, she will wait until she can get to [facility] to do so as that is where she is moving. The staff at [facility] are aware and she states they will help her get it set up. (7) Headache: Code(s): R51.9 - Headache, unspecified Status: Acute Assessment and Plan: * Fiorcet 1 tab PO BID PRN (8) Nausea: Code(s): R11.0 - Nausea Status: Acute Assessment and Plan: * Phenergan 25 mg PO q 6 PRN. DS: Summary Hospital Course Reason for hospitalization: Colon Mass, Lung Mass, Colitis, Sepsis Hospital Course: This 63 year old female pt with PMH of Chronic pain, neuropathy, on chronic anticoagulation for splenic infarct, presented to the ER from [facility] where she resides on 05/22/24 with complaints of abdominal pain. Upon arrival CTA of the chest abdomen and pelvis showed a 1.5 cm spiculated nodule in the lung as well as concerning findings in the colon for primary colon cancer. It is my understanding that patient was recently hospitalized in March at [facility] for acute pancreatitis and at that time they additionally found concerns for cancer but no follow-up has been done to the date of admission. [facility] and while there she began having abdominal pain leading to her current admission and overall situation. her CEA was assessed and was noted to be elevated. Here she was evaluated by both Pulmonology as well as General Surgery and underwent biopsies of both lung and colon. The pathology of the Colon biopsy demonstrated Adenocarcinoma, and the pathology of the lung biopsy is still pending. Out of concern for Colitis, the pt was started on empiric abx and has been transitioned to Augmentin that will be finished in an additional three doses. Colonoscopy was performed on 05/24/24 and it showed a malignant appearing colonic mass at descending colon. This pt was going to be referred expeditiously to our local Oncologist, Dr. Haynes, however, she is adamant that she is moving to [place], [place] to live with a friend by the name of Shmuel. Shmuel cannot transport the pt and Care Coordination has discussed with the [facility]ci [facility] and they will assist in helping pt get established with Oncology in [place], [place] and set up for follow up. It was made clear to the pt that this is not the recommended course, and that time is of the essence with concerns for two primary cancers, however, she will only accept discharging today and having [facility] set up Oncological care in [place], [place]. It was made clear to the pt that by delaying her care she is taking a risk of irreversible damage to her body, and even . Status at Discharge Cognitive/behavioral status at discharge: At baseline Functional status at discharge: independent ambulation Overall status at discharge: patient is back to baseline Time Spent with Patient Time attestation: Total time spent providing and/or coordinating discharge services: Time spent: Greater than 30 minutes Specific discharge activities: Follow up, medications, absolute emergent need for Oncological evaluation. Exam Const: General: comfortable and no acute distress Other: At baseline pain level of 8. HENMT: Mouth: Yes moist mucous membranes Eyes: General: appearance normal, both eyes and all related structures Neck: Neck: supple and no JVD Resp: Effort & Inspection: normal respiratory effort Auscultation: clear to auscultation bilaterally Cardio: Rate: regular rate Rhythm: regular rhythm Heart sounds: no gallops, no murmurs and no rubs GI: Inspection: non-distended GI Palp: Yes Soft to palpation and No Tenderness to palpation present (GI) Auscultation: normal bowel sounds Skin: General skin exam: normal color, no rashes or lesions noted and no erythema Lesions: no lesions noted Rashes: no rashes noted Wounds: no wounds Neuro: General: gait normal Motor exam (neuro): 5/5 motor strength present throughout and Normal motor muscle tone present throughout Sensory Exam: normal sensation Extrem: General: normal to inspection and no edema Psych: Mental Status: mental status grossly normal Affect: normal affect DS: Data Data Completed and Pending Completed studies during hospitalization: Pending at discharge 05/24/24 14:58 Surgical [PTH] Routine 05/26/24 15:28 Surgical [PTH] Routine ITS Impressions Chest/Abdomen/Pelvis CTA 05/22/24 13:13 IMPRESSION: 1. 1.5 cm spiculated nodule at the lingula concerning for primary bronchogenic carcinoma. If there is no prior outside imaging to confirm long-term stability would recommend further evaluation with CT-guided biopsy. 2. Stranding and wall thickening at the splenic flexure with nodular extension of soft tissue into the pericolonic fat and mild mesenteric lymphadenopathy which is highly concerning for primary colon cancer. Differential would include diverticulitis or focal colitis. Recommend colonoscopy for further evaluation. Chest X-Ray 05/26/24 16:38 IMPRESSION: 1. Mass in left midlung zone, consistent with nodule suspicious for malignancy and postbiopsy hemorrhage. Lung Biopsy CT 05/26/24 17:23 IMPRESSION: 1. Technically successful CT-guided core biopsy of a 13 mm suspicious lung lesion within the left upper lobe. No immediate complications were encountered. Pathology is pending. Chest X-Ray 05/26/24 18:52 IMPRESSION: 1. Nodule in left midlung zone suspicious for primary bronchogenic carcinoma and postbiopsy hemorrhage. 2. Mild atelectasis at left lung base. Labs on day of discharge: Labs from last 24 hours 05/31/24 06:15 WBC 11.2 H RBC 3.81 L Hgb 8.6 L Hct 29.1 L MCV 76.4 L MCH 22.6 L MCHC 29.6 L RDW 15.7 H Plt Count 489 H MPV 10.3 Immature Gran % (Auto) 0.4 Neut % (Auto) 60.6 Lymph % (Auto) 27.3 [place] % (Auto) 8.9 H Eos % (Auto) 2.4 Baso % (Auto) 0.4 Lymph # (Auto) 3.05 [place] # (Auto) 1.0 H Eos # (Auto) 0.3 Baso # (Auto) 0.0 Abs Immat Gran (auto) 0.04 H Absolute Neuts (auto) 6.8 H Absolute Nucleated RBC 0.000 Nucleated RBC % 0.0 Platelet Estimate Increased Hypochromasia 1+ Anisocytosis 1+ Schistocytes Rare Sodium 137 Potassium 4.2 Chloride 102 Carbon Dioxide 24 Anion Gap 11 BUN 14 D Creatinine 0.65 L Estim Creat Clear Calc 70 Estimated GFR > 60 Glucose 97 Calcium 9.2 Total Bilirubin 0.3 AST 16 ALT 13 Alkaline Phosphatase 128 H Total Protein 7.0 Albumin 3.7 Discharge Plan Discharge Attending physician on discharge: Nessa Mccarthy Consulting providers: Nessa Mccarthy; Anne Marie Key; Reynold Bird; Dennis Haynes; Tracy Ro Discharging Clinician: Nessa Mccarthy Anticipated Discharge Date/Time: 05/31/24 14:05 Patient Disposition: SNF Activity: as tolerated Diet: as tolerated Discharge Instructions: IT IS OF UTMOST IMPORTANCE THAT YOU HAVE AN EXPEDITIOUS FOLLOW UP WITH ONCOLOGY [facility]. YOU HAVE CHOSEN TO WAIT TO BE EVALUATED BY AN ONCOLOGIST IN [facility]. PLEASE UNDERSTAND THAT THIS DELAY IN CARE MAY MEAN UNDUE PAIN AND SUFFERING AND MAY LIMIT YOUR FUTURE TREATMENT OR EVEN CAUSE IRREVERSIBLE DAMAGE AND . YOU HAVE TWO DIFFERENT CANCERS THAT ARE FAST GROWING AND QUICK FOLLOW UP IS NEEDED. WE ARE ACCOMODATING YOUR REQUEST AT THIS TIME THAT [facility] WILL HELP YOU SET UP ONCOLOGY SERVICES, BUT YOU ARE ALSO RECEIVING A REFERRAL FROM ME TO DR. HAYNES IN CASE YOU CHANGE YOUR MIND. HE IS AN ONCOLOGIST AND WILL FOLLOW UP WITH YOU WELL IF NEEDED. TAKE ALL MEDICATIONS ORDERED AND RETURN TO THE ER IF YOU NEED ADDITIONAL TREATMENT. Patient Instructions: Apixaban (By mouth) Patient Language: Dutch Stand Alone Forms: Jail Discharge Follow-up/Referrals: Kamaljit,MD Luc [Primary Care Provider] - Dennis Haynes MD [Physician] - Discharge Medications: New amoxicillin-pot clavulanate 875-125 mg tablet 1 tablet PO Q12H Qty: 3 0RF Continued amitriptyline 75 mg tablet 75 mg PO HS prochlorperazine maleate [Compazine] 10 mg tablet 10 mg PO Q8H PRN (Reason: nausea and vomiting) Eliquis 5 mg tablet 5 mg PO BID gabapentin 600 mg tablet 600 mg PO TID hydroxyzine HCl 25 mg tablet 25 mg PO TID PRN (Reason: itching) pantoprazole 40 mg tablet,delayed release (DR/EC) 40 mg PO QAM Wal-Dryl (diphenhydramine-Zn) 2-0.1 % cream 1 applic topical BID PRN (Reason: itching) lidocaine [Aspercreme (lidocaine)] 4 % adhesive patch,medicated 2 patch topical DAILY Rx Instructions: may leave on for up to 12 hrs ondansetron 4 mg tablet,disintegrating 4 mg PO Q6H PRN (Reason: nausea and vomiting) polyethylene glycol 3350 [Miralax] 17 gram/dose powder 17 g PO DAILY PRN (Reason: constipation) oxycodone 5 mg tablet 5 mg PO Q4H PRN (Reason: pain) Qty: 30 0RF [id number] [Fioricet] 50-300-40 mg capsule 1 cap PO BID PRN (Reason: pain) Qty: 60 0RF Date of admission: 05/25/24 10:50 Primary Care Provider: SelvinLuc Admitting Provider: [place] V. Attending physician on admission: Nessa Mccarthy Condition: Stable Quality VTE Prophylaxis VTE prophylaxis: pharmacologic ordered Hospitalist MIPS Heart Failure (Exclusion) Patient has history of Heart Transplant or Left Ventricular Assistive Device?: No IF YES, STOP HERE Heart Failure (Qualifier) Patient has current or prior documentation of LVEF less than or equal to 40%, or mod/servere depressed LVSF?: No IF NO, STOP HERE
[2024-05-31 14:00] VITALS: BP 112/76; PULSE 84; RESP 16; TEMP 36.4; O2SAT 95
[2024-05-31] MEDS: ALPRAZolam (*CRX) 0.25 MG TABLET PO (15:41)
[2024-05-31 16:21] LABS: SARS-CoV-2 RNA PCR Negative (Negative)
--- NOTE | 2024-05-31 17:00 | PC.NURSE ---
On 05/31/24, the student, Sandy Nuñez, provided care and completed [facility] documentation on this patient. I have reviewed the student's documentation and agree with the findings.
== END 2024-05-31 17:16 | DRG 872 ==
LOC: ANHED 19:27 → ANH3MED 22:08
PROVIDERS: Internal Medicine Gastroenterology; Internal Medicine Hematology & Oncology; Nurse Practitioner Family; Registered Nurse; Admitting Provider Internal Medicine; Emergency Provider Emergency Medicine; PCP Internal Medicine; Visit Provider Nurse Practitioner Adult Health
PROC: 0DJD8ZZ Inspection of Lower Intestinal Tract, Via Natural or Artificial Opening Endoscopic (ICD-10-PCS; CPT 45378; principal; 2024-05-24 15:15)
DX: A41.9 Sepsis, unspecified organism (principal); C18.9 Malignant neoplasm of colon, unspecified; C34.90 Malignant neoplasm of unspecified part of unspecified bronchus or lung; K52.9 Noninfective gastroenteritis and colitis, unspecified; K57.30 Diverticulosis of large intestine without perforation or abscess without bleeding; D73.5 Infarction of spleen; G89.29 Other chronic pain; G62.9 Polyneuropathy, unspecified; J44.9 Chronic obstructive pulmonary disease, unspecified; Z79.01 Long term (current) use of anticoagulants; Z20.822 Contact with and (suspected) exposure to COVID-19; Z28.21 Immunization not carried out because of patient refusal; Z87.891 Personal history of nicotine dependence; Z90.49 Acquired absence of other specified parts of digestive tract
CPT/HCPCS: 32408; 36415; 71045; 71275; 74174; 80053; 80202; 81003; 82378; 82565; 82607; 82728; 82746; 82948; 83540; 83550; 83605; 83690; 83735; 83880; 84443; 84484; 85025; 85027; 85610; 85730; 87040; 87635; 88305; 88342; 93005; 96361; 96365; 96366; 96367; 96375; 96376; 97161; 97165; 99285; A9270; G0378; J1171; J2003; J2060; J2405; J2543; J2704; J3370; J7030; J7120; Q9967

== ENCOUNTER 2024-06-15 17:07 | Emergency (ER) | payer MEDICARE, MEDICAID, SELFPAY ==
--- NOTE | ~2024-06-15 | CT_ITS ---
EXAMINATION: CT abdomen pelvis w con DATE: 06/15/2024 23:08 INDICATION: Abdominal pain. TECHNIQUE: Computed tomography (CT) of the abdomen and pelvis was performed with 100 mL Omnipaque 350 intravenous contrast. Automated exposure control and iterative reconstruction technique were employe d. The dose-length product was 1036.46 mGy-cm. COMPARISON: CT abdomen pelvis 05/22/24 FINDINGS: The visualized portions of the lung bases demonstrate mild atelectasis. There is mild scarr ing in paraspinal right lower lobe. There is a 15 mm nodule in left lung upper lobe, consistent with adenocarcinoma. Calcified right hilar lymph nodes are consistent with old granulomatous disease. No p leural effusion. The heart size is normal. No pericardial effusion. There is a small sliding hiatal h ernia. The liver is normal. Calcifications in the spleen are consistent with old granulomatous diseas e. There are changes of cholecystectomy. There is focal wall thickening of the splenic flexure of the colon with abnormal soft tissue abutting the tail of pancreas and the spleen. There is mild mesenter ic lymphadenopathy. The adrenal glands are normal. There is a 12 mm cyst in right kidney. There is co rtical thinning of left kidney. There are no dilated loops of bowel. The appendix is normal. There is no free intraperitoneal fluid. There is severe lumbar spondylosis and moderate thoracic spondylosis. IMPRESSION: 1. Wall thickening of the splenic flexure of the colon, consistent with primary adenocarcinoma. 2. Mild mesenteric lymphadenopathy, consistent with metastatic disease. 3. Left lung nodule, consistent with primary versus metastatic adenocarcinoma. Reviewed, dictated and finalized at location A. [facility]
--- NOTE | 2024-06-15 17:27 | ED.ABDPAIN ---
HPI - Abdominal Pain General Chief Complaint: Abdominal Pain <Nathalia Moreno PA-C - Last Filed: 06/16/24 18:10> Stated Complaint: chronic abdominal pain, hx colon cancer <Nathalia Moreno PA-C - Last Filed: 06/16/24 18:10> Time Seen by Provider: 06/15/24 17:27 <Nathalia Moreno PA-C - Last Filed: 06/16/24 18:10> Focused HPI: This is a 63 year old female that presents to the ER for diffuse abdominal pain. Reports acute on chronic pain. Reports history of lung cancer and colon cancer. She has been taking her prescribed pain medication with little relief. Reports she believes she may have a UTI. Denies fever, vomiting, diarrhea, hematuria. GENERAL: Well-appearing, well-nourished, and in no acute distress. HEAD: Normocephalic, atraumatic. CHEST: Clear to auscultation. ?No respiratory distress. HEART: Regular rate and rhythm.? NEURO: ?Alert and oriented x3. Patient screened in triage and initial orders placed.? ?Additional care and disposition to be based upon?diagnostic testing and treatment. <Nathalia Moreno PA-C - Last Filed: 06/16/24 18:10> Focused HPI: This is a 63 year old female that presents to the ER for diffuse abdominal pain. Reports acute on chronic pain. Reports history of lung cancer and colon cancer. She has been taking her prescribed pain medication with little relief. Reports she believes she may have a UTI. Denies fever, vomiting, diarrhea, hematuria. GENERAL: Well-appearing, well-nourished, and in no acute distress. HEAD: Normocephalic, atraumatic. CHEST: Clear to auscultation. ?No respiratory distress. HEART: Regular rate and rhythm.? NEURO: ?Alert and oriented x3. Patient screened in triage and initial orders placed.? ?Additional care and disposition to be based upon?diagnostic testing and treatment. Agree with triage assessment. Patient states that her abdominal pain is the same pain that she has had since she was diagnosed with the colon cancer. Denies any chest pain or shortness of breath, any nausea vomiting or diarrhea. Her upcoming appointment with her oncologist through [facility] is next week. Otherwise agree with triage assessment. <Jamshid Martinez MD - Last Filed: 06/15/24 23:49> Related Data Home Medications: Home Medications ?Medication ?Instructions ?Recorded ?Confirmed ?Last Taken ?Type amitriptyline 75 mg tablet 75 mg PO HS 05/22/24 05/22/24 Unknown History apixaban 5 mg tablet (Eliquis) 5 mg PO BID 05/22/24 05/22/24 Unknown History diphenhydramine-zinc acetate 2 1 applic topical BID PRN itching 05/22/24 05/22/24 Unknown History %-0.1 % topical cream (Wal-Dryl (diphenhydramine-Zn acetate)) gabapentin 600 mg tablet 600 mg PO TID 05/22/24 05/22/24 Unknown History hydroxyzine HCl 25 mg tablet 25 mg PO TID PRN itching 05/22/24 05/22/24 Unknown History lidocaine 4 % topical patch 2 patch topical DAILY 05/22/24 05/22/24 Unknown History (Aspercreme (lidocaine)) ondansetron 4 mg disintegrating 4 mg PO Q6H PRN nausea and vomiting 05/22/24 05/22/24 Unknown History tablet pantoprazole 40 mg tablet,delayed 40 mg PO QAM 05/22/24 05/22/24 Unknown History release polyethylene glycol 3350 17 17 g PO DAILY PRN constipation 05/22/24 05/22/24 Unknown History gram/dose oral powder (Miralax) prochlorperazine maleate 10 mg 10 mg PO Q8H PRN nausea and 05/22/24 05/22/24 Unknown History tablet (Compazine) vomiting <Nathalia Moreno PA-C - Last Filed: 06/16/24 18:10> Allergies/Adverse Reactions: Allergies Allergy/AdvReac Type Severity Reaction Status Date / Time haloperidol AdvReac Mild Nausea and Verified 05/24/24 13:31 Vomiting morphine AdvReac the Verified 05/24/24 13:31 shakes <Nathalia Moreno PA-C - Last Filed: 06/16/24 18:10> Review of Systems Review of Systems: All systems are reviewed and are negative unless stated otherwise in the HPI. <Jamshid Martinez MD - Last Filed: 06/15/24 23:49> [facility] Past Medical History Medical History: Medical History Leukocytosis Lung mass Upper abdominal pain Abnormal CT scan, colon History of pancreatitis Chronic anticoagulation <Nathalia Moreno PA-C - Last Filed: 06/16/24 18:10> Surgical History Surgical History: Surgical History History of hysterectomy History of cholecystectomy <Nathalia Moreno PA-C - Last Filed: 06/16/24 18:10> Family History Family History: Family History Sibling Carcinoma of colon <Nathalia Moreno PA-C - Last Filed: 06/16/24 18:10> Social History Social History: Social History Smoking status: Former smoker Tobacco type: cigarettes Alcohol intake: former Substance use: never Do You Feel Safe in your Home?: Yes Lack of Transportation: No Lack of Food: Never True Current Housing: I Have Housing Concerned About Future Housing: No Difficulty Paying Gas/Electric Bills: No Difficulty Paying for Meds: No Currently Unemployed: No Education: Decline to Answer Difficulty w/ Childcare or Family Care: No Spiritual care concerns: No <Nathalia Moreno PA-C - Last Filed: 06/16/24 18:10> Exam Narrative: General: Alert, awake, afebrile, in no acute distress. HEENT: PERRL, no rhinorrhea, no post nasal drip, oropharynx clear. Neck: Trachea midline, no JVD, no lymphadenopathy. Cardiovascular: Tachycardic with regular rhythm, no murmurs, rubs or gallops, no peripheral edema. Respiratory: Clear to auscultation bilaterally, no tachypnea, no wheezing, no rhonchi, no rubs, no respiratory distress. Abdomen: Soft, nontender, nondistended, no rebound, no guarding, no peritoneal signs. Musculoskeletal: No joint swelling or deformity, normal muscle tone. Skin: No rashes or petechia, no signs of infection. Psychiatric: Alert and oriented, normal behavior and judgment for situation. Neurological: Alert and oriented to person, place, and time. Follows all commands. No focal deficits, speech is clear and fluent. <Jamshid Martinez MD - Last Filed: 06/15/24 23:49> Course Vital Signs Vital signs: Vital Signs Temperature 98.4 F 06/15/24 17:35 Pulse Rate 115 H 06/15/24 17:35 Respiratory Rate 16 06/15/24 17:35 Blood Pressure 124/89 06/15/24 17:35 Pulse Oximetry 99 06/15/24 17:35 Oxygen Delivery Room Air 06/15/24 17:35 Temperature 98.4 F 06/15/24 17:35 Pulse Rate 114 H 06/16/24 02:03 Respiratory Rate 18 06/16/24 02:03 Blood Pressure 127/89 06/16/24 02:03 Pulse Oximetry 98 06/16/24 02:03 Oxygen Delivery Room Air 06/15/24 17:35 <Nathalia Moreno PA-C - Last Filed: 06/16/24 18:10> Vital Signs Temperature 98.4 F 06/15/24 17:35 Pulse Rate 115 H 06/15/24 17:35 Respiratory Rate 16 06/15/24 17:35 Blood Pressure 124/89 06/15/24 17:35 Pulse Oximetry 99 06/15/24 17:35 Oxygen Delivery Room Air 06/15/24 17:35 Temperature 98.4 F 06/15/24 17:35 Pulse Rate 114 H 06/16/24 02:03 Respiratory Rate 18 06/16/24 02:03 Blood Pressure 127/89 06/16/24 02:03 Pulse Oximetry 98 06/16/24 02:03 Oxygen Delivery Room Air 06/15/24 17:35 <Jamshid Martinez MD - Last Filed: 06/15/24 23:49> MDM - Abdominal Pain MDM Narrative Medical decision making narrative: The patient was evaluated by myself in the emergency department. History is obtained from patient who is an independent historian and physical exam was performed. External medical records were reviewed at this time. IV was established and pertinent tests were ordered. Patient was administered 2 mg of IV morphine and 4 mg IV Zofran and 1 L IV fluid bolus with normal saline. Laboratory results obtained revealing no acute process. Patient's hemoglobin was noted to be 8 .2, however this is around patient's baseline. Urinalysis unremarkable. Imaging studies obtained included CT abdomen and pelvis with IV contrast which was independently interpreted by me revealing: IMPRESSION: 1. Wall thickening of the splenic flexure of the colon, consistent with primary adenocarcinoma. 2. Mild mesenteric lymphadenopathy, consistent with metastatic disease. 3. Left lung nodule, consistent with primary versus metastatic adenocarcinoma. Differential diagnosis considerations include bowel obstruction, colon cancer, gastritis, appendicitis, pancreatitis. Comorbidities impacting this visit include recent diagnosis of colon cancer. I have evaluated and discussed social determinants of health with the patient that could potentially impact subsequent diagnosis and treatment plans. On repeat assessment of the patient, reevaluation revealed that the patient is doing well and is in no acute distress. Patient symptoms have improved since she arrived to our emergency department. Repeat vital signs were all reviewed and noted to be stable. Differential diagnosis and treatment plan were discussed with the patient at bedside. Patient agrees with discussion and after shared medical decision making agrees with discharge. All questions were answered to the patient's satisfaction. Patient will follow up with her oncologist/PCP in 3-5 days. Patient was provided with strict return precautions and instructed to return to the emergency department if any new or worsening symptoms develop. The patient was discharged in stable condition. <Jamshid Martinez MD - Last Filed: 06/15/24 23:49> Lab Data Result diagrams: 06/15/24 17:31 06/15/24 17:31 <Nathalia Moreno PA-C - Last Filed: 06/16/24 18:10> Labs: Lab Results 06/15/24 06/15/24 Range/Units 17:31 20:25 WBC 10.3 H (4.5-10.0) K/mm3 RBC 3.79 L (4.2-5.4) M/mm3 Hgb 8.2 L (12.0-15.0) g/dL Hct 28.5 L (37.0-47.0) % MCV 75.2 L (80-100) fl MCH 21.6 L (26-34) pg MCHC 28.8 L (32-36) g/dl RDW 16.3 H (11.5-14.5) % Plt Count 510 H (150-375) k/mm3 MPV 10.4 (7.4-10.4) fl Immature Gran % (Auto) 0.2 (0-0.5) % Neut % (Auto) 57.1 (45.5-73.1) % Lymph % (Auto) 32.2 (18.3-44.2) % [place] % (Auto) 7.0 (2.6-8.5) % Eos % (Auto) 3.0 (0-4.4) % Baso % (Auto) 0.5 (0.2-1.2) % Lymph # (Auto) 3.30 H (0.9-3.2) K/mm3 [place] # (Auto) 0.7 H (0.1-0.6) K/mm3 Eos # (Auto) 0.3 (0-0.3) K/mm3 Baso # (Auto) 0.1 (0.0-0.1) K/mm3 Abs Immat Gran (auto) 0.02 (0.00-0.031) K/mm3 Absolute Neuts (auto) 5.9 (1.3-6.7) K/mm3 Absolute Nucleated RBC 0.000 (0.0-0.012) K/mm3 Band Neutrophils % Not Reportable Nucleated RBC % 0.0 (0.0-0.2) % Platelet Estimate Increased (Adequate) Hypochromasia 1+ Ovalocytes 1+ Schistocytes None seen Sodium 137 (137-145) mmol/L Potassium 4.3 (3.4-5.0) mmol/L Chloride 101 (98-107) mmol/L Carbon Dioxide 26 (22-30) mmol/L Anion Gap 10 (4-12) mmol/L BUN 17 (7-17) mg/dL Creatinine 0.64 L (0.7-1.0) mg/dL Estim Creat Clear Calc 68 ml/min Estimated GFR > 60 (59 - ) Glucose 85 (65-110) mg/dL Calcium 9.2 (8.4-10.2) mg/dL Total Bilirubin 0.4 (0.2-1.3) mg/dL AST 30 (14-36) U/L ALT 14 (6-35) U/L Alkaline Phosphatase 127 H (38-126) U/L Total Protein 8.0 (6.3-8.2) g/dL Albumin 4.0 (3.5-5.1) g/dL Lipase 39 (23-300) U/L Urine Color Yellow (Yellow) Urine Appearance Clear (Clear) Urine pH 5.5 (5.0-9.0) Ur Specific [place] 1.009 (1.001-1.035) Urine Protein Negative (Negative) mg/dL Urine Glucose (UA) Negative (Negative) mg/dL Urine Ketones Negative (Negative) mg/dL Ur Blood (Man) Negative (Negative) Urine Nitrate Negative (Negative) Urine Bilirubin Negative (Negative) Urine Urobilinogen 0.2 (<2.0) mg/dL Leukocyte Esterase Rfl Negative (Negative) EUGENIA/UL <Nathalia Moreno PA-C - Last Filed: 06/16/24 18:10> Lab Results 06/15/24 06/15/24 Range/Units 17:31 20:25 WBC 10.3 H (4.5-10.0) K/mm3 RBC 3.79 L (4.2-5.4) M/mm3 Hgb 8.2 L (12.0-15.0) g/dL Hct 28.5 L (37.0-47.0) % MCV 75.2 L (80-100) fl MCH 21.6 L (26-34) pg MCHC 28.8 L (32-36) g/dl RDW 16.3 H (11.5-14.5) % Plt Count 510 H (150-375) k/mm3 MPV 10.4 (7.4-10.4) fl Immature Gran % (Auto) 0.2 (0-0.5) % Neut % (Auto) 57.1 (45.5-73.1) % Lymph % (Auto) 32.2 (18.3-44.2) % [place] % (Auto) 7.0 (2.6-8.5) % Eos % (Auto) 3.0 (0-4.4) % Baso % (Auto) 0.5 (0.2-1.2) % Lymph # (Auto) 3.30 H (0.9-3.2) K/mm3 [place] # (Auto) 0.7 H (0.1-0.6) K/mm3 Eos # (Auto) 0.3 (0-0.3) K/mm3 Baso # (Auto) 0.1 (0.0-0.1) K/mm3 Abs Immat Gran (auto) 0.02 (0.00-0.031) K/mm3 Absolute Neuts (auto) 5.9 (1.3-6.7) K/mm3 Absolute Nucleated RBC 0.000 (0.0-0.012) K/mm3 Band Neutrophils % Not Reportable Nucleated RBC % 0.0 (0.0-0.2) % Platelet Estimate Increased (Adequate) Hypochromasia 1+ Ovalocytes 1+ Schistocytes None seen Sodium 137 (137-145) mmol/L Potassium 4.3 (3.4-5.0) mmol/L Chloride 101 (98-107) mmol/L Carbon Dioxide 26 (22-30) mmol/L Anion Gap 10 (4-12) mmol/L BUN 17 (7-17) mg/dL Creatinine 0.64 L (0.7-1.0) mg/dL Estim Creat Clear Calc 68 ml/min Estimated GFR > 60 (59 - ) Glucose 85 (65-110) mg/dL Calcium 9.2 (8.4-10.2) mg/dL Total Bilirubin 0.4 (0.2-1.3) mg/dL AST 30 (14-36) U/L ALT 14 (6-35) U/L Alkaline Phosphatase 127 H (38-126) U/L Total Protein 8.0 (6.3-8.2) g/dL Albumin 4.0 (3.5-5.1) g/dL Lipase 39 (23-300) U/L Urine Color Yellow (Yellow) Urine Appearance Clear (Clear) Urine pH 5.5 (5.0-9.0) Ur Specific [place] 1.009 (1.001-1.035) Urine Protein Negative (Negative) mg/dL Urine Glucose (UA) Negative (Negative) mg/dL Urine Ketones Negative (Negative) mg/dL Ur Blood (Man) Negative (Negative) Urine Nitrate Negative (Negative) Urine Bilirubin Negative (Negative) Urine Urobilinogen 0.2 (<2.0) mg/dL Leukocyte Esterase Rfl Negative (Negative) EUGENIA/UL <Jamshid Martinez MD - Last Filed: 06/15/24 23:49> Imaging Data Radiologist's impression: ITS Impressions Abdomen/Pelvis CT 06/15/24 23:11 IMPRESSION: 1. Wall thickening of the splenic flexure of the colon, consistent with primary adenocarcinoma. 2. Mild mesenteric lymphadenopathy, consistent with metastatic disease. 3. Left lung nodule, consistent with primary versus metastatic adenocarcinoma. <Nathalia Moreno PA-C - Last Filed: 06/16/24 18:10> ITS Impressions Abdomen/Pelvis CT 06/15/24 23:11 IMPRESSION: 1. Wall thickening of the splenic flexure of the colon, consistent with primary adenocarcinoma. 2. Mild mesenteric lymphadenopathy, consistent with metastatic disease. 3. Left lung nodule, consistent with primary versus metastatic adenocarcinoma. <Jamshid Martinez MD - Last Filed: 06/15/24 23:49> Critical Care Time Critical Care Time Critical Care Time: No <Nathalia Moreno PA-C - Last Filed: 06/16/24 18:10> Discharge Plan Discharge Clinical Impression: Abdominal pain, chronic, generalized Colon cancer Qualifiers: Colon location: unspecified part of colon Qualified Code(s): C18.9 - Malignant neoplasm of colon, unspecified <Nathalia Moreno PA-C - Last Filed: 06/16/24 18:10> Patient Disposition: Home, Self-Care <Nathalia Moreno PA-C - Last Filed: 06/16/24 18:10> Condition: Improved <Nathalia Moreno PA-C - Last Filed: 06/16/24 18:10> Instructions: Antibiotic Form, Abdominal Pain (ED) <SEVERINO Nascimento Last Filed: 06/16/24 18:10> Additional Instructions: Return to the ED if any new or worsening symptoms develop. Follow-up with your oncologist as scheduled for your upcoming appointment next week. You also instructed to follow-up with your primary care physician within the next 3-5 days. <Nathalia Moreno PA-C - Last Filed: 06/16/24 18:10> Patient Language: Japanese <SEVERINO Nascimento Last Filed: 06/16/24 18:10> Prescriptions: No Action amitriptyline 75 mg tablet 75 mg PO HS prochlorperazine maleate [Compazine] 10 mg tablet 10 mg PO Q8H PRN (Reason: nausea and vomiting) Eliquis 5 mg tablet 5 mg PO BID gabapentin 600 mg tablet 600 mg PO TID hydroxyzine HCl 25 mg tablet 25 mg PO TID PRN (Reason: itching) pantoprazole 40 mg tablet,delayed release (DR/EC) 40 mg PO QAM Wal-Dryl (diphenhydramine-Zn) 2-0.1 % cream 1 applic topical BID PRN (Reason: itching) lidocaine [Aspercreme (lidocaine)] 4 % adhesive patch,medicated 2 patch topical DAILY Rx Instructions: may leave on for up to 12 hrs ondansetron 4 mg tablet,disintegrating 4 mg PO Q6H PRN (Reason: nausea and vomiting) polyethylene glycol 3350 [Miralax] 17 gram/dose powder 17 g PO DAILY PRN (Reason: constipation) amoxicillin-pot clavulanate 875-125 mg tablet 1 tablet PO Q12H Qty: 3 0RF oxycodone 5 mg tablet 5 mg PO Q4H PRN (Reason: pain) Qty: 30 0RF daxovrljwa-xidjpfpeqmelu-abgr [Fioricet] 50-300-40 mg capsule 1 cap PO BID PRN (Reason: pain) Qty: 60 0RF <Nathalia Moreno PA-C - Last Filed: 06/16/24 18:10> Follow-up/Referrals: Kamaljit,MD Luc [Primary Care Provider] - 3 Days <Nathalia Moreno PA-C - Last Filed: 06/16/24 18:10> Time of Disposition: 23:44 <Nathalia Moreno PA-C - Last Filed: 06/16/24 18:10> 23:44 <Jamshid Martinez MD - Last Filed: 06/15/24 23:49>
[2024-06-15 17:35] VITALS: BP 124/89; PULSE 115; RESP 16; TEMP 36.9; O2SAT 99
[2024-06-15 17:36] LABS: Basophils Absolute Auto 0.1 K/mm3 (0.0-0.1); Basophils Percent Auto 0.5 % (0.2-1.2); Eosinophils Absolute Auto 0.3 K/mm3 (0-0.3); Hematocrit 28.5 % (37.0-47.0); Hemoglobin 8.2 g/dL (12.0-15.0); Immature Granulocyte Absolute 0.02 K/mm3 (0.00-0.031); Immature Granulocyte Percent A 0.2 % (0-0.5); Lymphocytes Percent Auto 32.2 % (18.3-44.2); Mean Corpuscular HGB Conc 28.8 g/dl (32-36); Mean Corpuscular Hemoglobin 21.6 pg (26-34); Mean Corpuscular Volume 75.2 fl (80-100); Mean Platelet Volume 10.4 fl (7.4-10.4); Monocytes Absolute Auto 0.7 K/mm3 (0.1-0.6); Neutrophils Absolute Auto 5.9 K/mm3 (1.3-6.7); Neutrophils Percent Auto 57.1 % (45.5-73.1); Platelet Count Result 510 k/mm3 (150-375); Red Blood Count 3.79 M/mm3 (4.2-5.4); Red Cell Distribution Width 16.3 % (11.5-14.5); White Blood Count 10.3 K/mm3 (4.5-10.0)
[2024-06-15 17:44] LABS: Platelet Estimate Increased (Adequate)
[2024-06-15 17:45] LABS: Hypochromasia 1+; Ovalocytes 1+; Schistocytes None Seen
[2024-06-15 17:50] LABS: Alanine Aminotransferase 14 U/L (6-35); Alkaline Phosphatase 127 U/L (38-126); Anion Gap 10 mmol/L (4-12); Aspartate Amino Transferase 30 U/L (14-36); Bilirubin,Total 0.4 mg/dL (0.2-1.3); Blood Urea Nitrogen 17 mg/dL (7-17); Calcium 9.2 mg/dL (8.4-10.2); Carbon Dioxide 26 mmol/L (22-30); Chloride 101 mmol/L (98-107); Estimated CRCL calculation 68 ml/min; Estimated Glomerular Filt Rate > 60; Glucose 85 mg/dL (65-110); Lipase 39 U/L (23-300); Potassium 4.3 mmol/L (3.4-5.0); Sodium 137 mmol/L (137-145)
[2024-06-15 20:55] LABS: Add Urine Microscopic? NO; Appearance Urine Clear (Clear); Bilirubin Urine Negative (Negative); Blood Urine Negative (Negative); Color Urine Yellow (Yellow); Glucose Urine UA Negative (Negative); Ketones Urine Negative (Negative); Leukocyte Esterase Ur Negative LEU/UL (Negative); Nitrate Urine Negative (Negative); Protein Urine Negative (Negative); Specific Grav Ur 1.009 (1.001-1.035); Urobilinogen Urine 0.2 mg/dL (<2.0); pH Urine 5.5 (5.0-9.0)
[2024-06-15 22:34] VITALS: BP 119/76; PULSE 106; RESP 24; O2SAT 97
--- NOTE | 2024-06-15 23:19 | PC.NURSE ---
Report to Trini CARRINGTON
[2024-06-15] MEDS: SODIUM CHLORIDE 0.9% IV 1,000 ML 999 ML IV CONT (23:52)
[2024-06-15] MEDS: ONDANSETRON INJ 4 MG/2 ML VIAL IV PUSH (23:52)
[2024-06-15] MEDS: MORPHINE SULFATE (*CRX) 2 MG/ML INJ IV PUSH (23:54)
[2024-06-16 00:22] VITALS: BP 104/55; PULSE 109; RESP 12; O2SAT 99
[2024-06-16] MEDS: MORPHINE SULFATE (*CRX) 2 MG/ML INJ IV PUSH (01:15)
[2024-06-16 01:18] VITALS: BP 127/89; PULSE 114; RESP 18; O2SAT 98
[2024-06-16 02:03] VITALS: BP 127/89; PULSE 114; RESP 18; O2SAT 98
== END 2024-06-16 02:04 | disposition home or self-care (01) ==
LOC: ANHED 23:55
PROVIDERS: Physician Assistant; Emergency Provider Emergency Medicine; PCP Internal Medicine
DX: R10.84 Generalized abdominal pain (principal); C18.9 Malignant neoplasm of colon, unspecified; Z85.118 Personal history of other malignant neoplasm of bronchus and lung; Z79.01 Long term (current) use of anticoagulants; Z87.891 Personal history of nicotine dependence
CPT/HCPCS: 36415; 74177; 80053; 81003; 83690; 85025; 96361; 96374; 96375; 96376; 99284; J2270; J2405; J7030; Q9967